=== PATIENT | male | born 1985 | race Two or more races ===

== ENCOUNTER 2016-12-08 10:14 | Emergency (ER) | payer SELFPAY ==
[~2016-12-08] VITALS: Ht 165.1 cm; Wt 120.2 kg
[~2016-12-08 10:14] MED LIST: AMIO200T33 PO; CAR3125T PO; DIG0125T PO; ENA2.5T PO; FURO40TA PO; SIMV10TA84 PO; WARF7.5T PO
[2016-12-08 10:23] VITALS: BP 151/105
[2016-12-08] MEDS ORDERED: HYDROcodone-ACET 10/325MG TAB PO ONE (11:45)
[2016-12-08] MEDS ORDERED: NEOMYCIN-BACITRACIN-POLYM 15GM TOP OINT TOP SCH (12:15)
[2016-12-08] MEDS ORDERED: LIDOCAINE 1% HCL (LOCAL ANESTH.) INJ 20ML MDV IJ ONE (12:15)
== END 2016-12-08 13:45 | disposition home or self-care (01) ==
LOC: ER 10:14
DX: S61.217A Laceration without foreign body of left little finger without damage to nail, initial encounter (principal); E78.5 Hyperlipidemia, unspecified; I11.0 Hypertensive heart disease with heart failure; I50.9 Heart failure, unspecified; X58.XXXA Exposure to other specified factors, initial encounter; Y93.89 Activity, other specified; Y92.89 Other specified places as the place of occurrence of the external cause; Y99.8 Other external cause status
CPT/HCPCS: 12002; 73140; 99284; J2001

== ENCOUNTER 2016-12-10 11:42 | Emergency (ER) | payer SELFPAY ==
[~2016-12-10] VITALS: Ht 165.1 cm; Wt 120.2 kg
[2016-12-10 12:16] VITALS: BP 135/76
== END 2016-12-10 14:47 | disposition home or self-care (01) ==
LOC: ER 11:42
DX: S61.219D Laceration without foreign body of unspecified finger without damage to nail, subsequent encounter (principal); Z48.01 Encounter for change or removal of surgical wound dressing; I11.0 Hypertensive heart disease with heart failure; I50.9 Heart failure, unspecified; E78.5 Hyperlipidemia, unspecified; Z79.899 Other long term (current) drug therapy

== ENCOUNTER 2016-12-17 08:30 | Emergency (ER) | payer SELFPAY ==
[~2016-12-17] VITALS: Ht 165.1 cm; Wt 120.2 kg
[2016-12-17 08:42] VITALS: BP 142/91
== END 2016-12-17 09:23 | disposition home or self-care (01) ==
LOC: ER 08:30
DX: S61.217D Laceration without foreign body of left little finger without damage to nail, subsequent encounter (principal); I11.0 Hypertensive heart disease with heart failure; I15.0 Renovascular hypertension; E78.5 Hyperlipidemia, unspecified; Z48.02 Encounter for removal of sutures; Z79.899 Other long term (current) drug therapy

== ENCOUNTER 2020-02-21 06:06 | Emergency (ER) | payer MEDICAID ==
[~2020-02-21] VITALS: Ht 165.1 cm; Wt 131.5 kg
[~2020-02-21 06:06] MED LIST changes: -ENA2.5T PO; +ENAL2.5T2 PO; +FURO1TAB31 PO; -FURO40TA PO
[2020-02-21 06:13] VITALS: BP 153/99
[2020-02-21] MEDS ORDERED: KETOROLAC TROMETH 60MG/2ML VIAL IM ONE (07:30)
== END 2020-02-21 07:55 | disposition home or self-care (01) ==
LOC: ER 06:06
DX: M79.642 Pain in left hand (principal); M79.641 Pain in right hand; M19.90 Unspecified osteoarthritis, unspecified site; E78.5 Hyperlipidemia, unspecified; I10 Essential (primary) hypertension
CPT/HCPCS: 96372; 99283; J1885

== ENCOUNTER 2021-02-18 08:27 | Emergency (ER) | payer SELFPAY ==
[~2021-02-18] VITALS: Ht 165.1 cm; Wt 88.5 kg
[~2021-02-18 08:27] MED LIST changes: +ENAL2.5T11 PO; -ENAL2.5T2 PO; -WARF7.5T PO; +WARF7.5T2 PO
[2021-02-18 08:59] LABS: Basophils # (auto) 0 10 ^3/uL (0-0.2); Basophils % (auto) 0.7 % (0.0-2.0); Eosinophils # (auto) 0.1 10 ^3/uL (0-0.8); Lymphocytes # (auto) 1.3 10 ^3/uL (0.4-5.4); Mean Corpuscular Volume 91.5 fL (80.0-100.0); Neutrophils # (auto) 4.4 10 ^3/uL (1.6-8.6); Platelet Count (auto) 183 10^3/uL (140-450); White Blood Cell 6.3 10^3/uL (4.4-10.8)
[2021-02-18 09:00] LABS: Eosinophils % (auto) 1.6 % (0.0-7.0); Hemoglobin 19.6 g/dL (13.5-17.5); Lymphocytes % (auto) 20.9 % (10.0-50.0); Mean Corpuscular Hgb Conc. 33.9 g/dL (32.0-36.0); Monocytes # (auto) 0.4 10 ^3/uL (0-1.3); Monocytes % (auto) 6.4 % (0.0-12.0); Neutrophils % (auto) 70.4 % (37.0-80.0); Nucleated Red Blood Cells % 0.2 %; Red Blood Cells 6.32 10^6/uL (4.5-5.90); Red Cell Distribution Width 14.9 % (11.8-14.3)
[2021-02-18 09:04] LABS: Hematocrit 57.8 % (41.0-53.0)
[2021-02-18] MEDS ORDERED: FUROSEMIDE 40 MG/4 ML VIAL IV ONE (09:15)
[2021-02-18 09:16] VITALS: BP 143/78
[2021-02-18 09:19] LABS: Urine Bacteria NONE SEEN /hpf (None Seen); Urine Blood Negative /uL (Negative); Urine Specific Gravity 1.018 (1.001-1.035); Urine WBC <1 /hpf (0 - 3)
[2021-02-18 09:31] LABS: Albumin 3.3 g/dL (3.4-5.0); Anion Gap 4 (5-15); Blood Urea Nitrogen 12 mg/dL (7-18); Calcium 8.4 mg/dL (8.5-10.1); Carbon Dioxide 27 mmol/L (21-32); Chloride 106 mmol/L (98-107); Glucose 123 mg/dL (74-106); Sodium 137 mmol/L (136-145)
[2021-02-18 09:37] LABS: Alanine Aminotransferase 34 U/L (16-61); Alkaline Phosphatase 130 U/L (45-117); Aspartate Aminotransferase 18 U/L (15-37); Bilirubin, Total 0.4 mg/dL (0.2-1.0); GFR African American 197 mL/min; GFR Non-African American 163 mL/min; Total Protein 7.2 g/dL (6.4-8.2)
[2021-02-18] MEDS ORDERED: IOHEXOL 350 MG/ML 100ML IJ ONE (09:57)
== END 2021-02-18 11:29 | disposition home or self-care (01) ==
LOC: ER 08:27
DX: I11.0 Hypertensive heart disease with heart failure (principal); I50.33 Acute on chronic diastolic (congestive) heart failure; E78.5 Hyperlipidemia, unspecified; Z95.0 Presence of cardiac pacemaker
CPT/HCPCS: 36415; 71046; 71275; 80053; 81001; 83880; 84484; 85025; 85379; 96374; 99285; J1940; Q9967

== ENCOUNTER 2021-02-24 12:59 | Inpatient (IN) | payer MEDICAID ==
[~2021-02-24] VITALS: Ht 165.1 cm; Wt 94.8 kg
[2021-02-24 13:53] LABS: Basophils # (auto) 0 10 ^3/uL (0-0.2); Basophils % (auto) 0.3 % (0.0-2.0); Eosinophils % (auto) 0.6 % (0.0-7.0); Monocytes # (auto) 0.6 10 ^3/uL (0-1.3); Monocytes % (auto) 7.3 % (0.0-12.0); Neutrophils # (auto) 6.7 10 ^3/uL (1.6-8.6)
[2021-02-24 13:55] LABS: Eosinophils # (auto) 0.1 10 ^3/uL (0-0.8); Hematocrit 57.6 % (41.0-53.0); Hemoglobin 19.5 g/dL (13.5-17.5); Lymphocytes # (auto) 1.2 10 ^3/uL (0.4-5.4); Lymphocytes % (auto) 13.4 % (10.0-50.0); Mean Corpuscular Hemoglobin 30.8 pg (28.0-32.0); Mean Corpuscular Hgb Conc. 33.8 g/dL (32.0-36.0); Neutrophils % (auto) 78.4 % (37.0-80.0); Nucleated Red Blood Cells % 0.1 %; Platelet Count (auto) 156 10^3/uL (140-450); Red Blood Cells 6.33 10^6/uL (4.5-5.90); Red Cell Distribution Width 15.2 % (11.8-14.3); White Blood Cell 8.6 10^3/uL (4.4-10.8)
[2021-02-24 14:11] LABS: Alanine Aminotransferase 34 U/L (16-61); Albumin 3.5 g/dL (3.4-5.0); Anion Gap 3 (5-15); Aspartate Aminotransferase 23 U/L (15-37); Blood Urea Nitrogen 12 mg/dL (7-18); Calcium 8.2 mg/dL (8.5-10.1); Carbon Dioxide 30 mmol/L (21-32); Chloride 104 mmol/L (98-107); Glucose 93 mg/dL (74-106); Potassium 4.1 mmol/L (3.5-5.1); Sodium 137 mmol/L (136-145)
[2021-02-24 14:16] LABS: Alkaline Phosphatase 130 U/L (45-117); BUN/Creatinine Ratio 14.3; Bilirubin, Total 1.1 mg/dL (0.2-1.0); GFR African American 134 mL/min; GFR Non-African American 111 mL/min; Total Protein 7.6 g/dL (6.4-8.2)
[2021-02-24] MEDS ORDERED: IOHEXOL 350 MG/ML 100ML IJ ONE (15:31)
[2021-02-24] MEDS ORDERED: MORPHINE SULF INJ 2 MG/ML SYRINGE 1ML IV PRN (15:45)
[2021-02-24] MEDS ORDERED: NITROGLYCERIN 0.4 MG SL TAB SL PRN (15:45)
[2021-02-24 16:36] VITALS: BP 158/99
[2021-02-24] MEDS ORDERED: hydrALAZINE HCL 20 MG/ML VL IV PRN (20:00)
[2021-02-24] MEDS ORDERED: hydrALAZINE HCL 20 MG/ML VL IV ONE (20:00)
[2021-02-24 22:48] VITALS: BP 144/86
[2021-02-25 02:06] VITALS: BP 144/80
[2021-02-25] MEDS ORDERED: MORPHINE SULF INJ 2 MG/ML SYRINGE 1ML IV PRN ×2 (04:00)
[2021-02-25] MEDS ORDERED: ENOXAPARIN SOD 100 MG/1 ML SYRINGE SC ONE (04:00)
[2021-02-25] MEDS ORDERED: DOXYCYCLINE 100MG/250ML 250 ML IV ONE (04:00)
[2021-02-25] MEDS ORDERED: ATORVASTATIN 20 MG TAB PO ONE (04:00)
[2021-02-25] MEDS ORDERED: HYDROcodone-ACET 5/325MG TAB PO PRN (04:00)
[2021-02-25] MEDS ORDERED: CALCIUM GLUC 1,000mg/50ml-NS 50 ML IV ONE (04:00)
[2021-02-25] MEDS ORDERED: FUROSEMIDE 100 MG/10ML VIAL IV ONE (04:00)
[2021-02-25] MEDS ORDERED: ACETAMINOPHEN 325 MG TAB PO PRN (04:00)
[2021-02-25] MEDS ORDERED: METOPROLOL SUCCINATE XL 50 MG TAB PO ONE (04:00)
[2021-02-25] MEDS ORDERED: LORazepam 0.5 MG TAB PO PRN (04:00)
[2021-02-25] MEDS ORDERED: NITROGLYCERIN 0.4 MG SL TAB SL PRN (04:00)
[2021-02-25] MEDS ORDERED: ONDANSETRON HCL 4 MG/2 ML VIAL IV PRN (04:00)
[2021-02-25] MEDS ORDERED: DOCUSATE SOD 100 MG CAP PO PRN (04:00)
[2021-02-25] MEDS ORDERED: ALUM & MAG HYDROX-SIMETH LIQ(MAALOX) 30 ML PO PRN (04:00)
[2021-02-25] MEDS ORDERED: IPRATROPIUM BROM 0.5 MG/2.5ML INH SOL NEB PRN (04:30)
[2021-02-25 05:00] VITALS: BP 124/84
[2021-02-25] MEDS ORDERED: FUROSEMIDE 40 MG/4 ML VIAL IV SCH (06:00)
[2021-02-25 06:27] LABS: Basophils # (auto) 0 10 ^3/uL (0-0.2); Basophils % (auto) 0.4 % (0.0-2.0); Eosinophils # (auto) 0.1 10 ^3/uL (0-0.8); Eosinophils % (auto) 1.4 % (0.0-7.0); Hemoglobin 19.5 g/dL (13.5-17.5); Lymphocytes # (auto) 1.3 10 ^3/uL (0.4-5.4); Lymphocytes % (auto) 20.6 % (10.0-50.0); Mean Corpuscular Hemoglobin 31.3 pg (28.0-32.0); Mean Corpuscular Volume 92.1 fL (80.0-100.0); Monocytes # (auto) 0.5 10 ^3/uL (0-1.3); Monocytes % (auto) 7.5 % (0.0-12.0); Neutrophils # (auto) 4.5 10 ^3/uL (1.6-8.6); Neutrophils % (auto) 70.1 % (37.0-80.0); Nucleated Red Blood Cells % 0.9 %; Platelet Count (auto) 160 10^3/uL (140-450); Red Blood Cells 6.22 10^6/uL (4.5-5.90); Red Cell Distribution Width 15.2 % (11.8-14.3); White Blood Cell 6.3 10^3/uL (4.4-10.8)
[2021-02-25 06:28] LABS: Hematocrit 57.2 % (41.0-53.0)
[2021-02-25 06:46] LABS: Chloride 107 mmol/L (98-107); Potassium 3.9 mmol/L (3.5-5.1); Sodium 139 mmol/L (136-145)
[2021-02-25 06:47] LABS: INR 1.07 (0.9-1.15); Partial Thromboplastin Time 32.4 sec (23.0-31.2)
[2021-02-25 06:55] LABS: Alanine Aminotransferase 30 U/L (16-61); Albumin 3.3 g/dL (3.4-5.0); Alkaline Phosphatase 122 U/L (45-117); Anion Gap 5 (5-15); Aspartate Aminotransferase 18 U/L (15-37); BUN/Creatinine Ratio 20.3; Bilirubin, Total 0.8 mg/dL (0.2-1.0); Blood Urea Nitrogen 13 mg/dL (7-18); Carbon Dioxide 27 mmol/L (21-32); GFR African American 183 mL/min; GFR Non-African American 151 mL/min; Glucose 115 mg/dL (74-106); Magnesium 2.7 mg/dL (1.6-2.6); Phosphorus 2.2 mg/dL (2.5-4.90); Total Protein 7.1 g/dL (6.4-8.2)
[2021-02-25] MEDS: ASPirin 81 mg TAB PO SCH (08:53)
[2021-02-25] MEDS: FAMOTIDINE 20 MG TAB PO SCH ×2 (08:54→21:51)
[2021-02-25] MEDS: CALCIUM W/VIT D (600MG/400IU) TAB PO SCH ×2 (08:54→17:51)
[2021-02-25] MEDS: LISINOPRIL 10 MG TAB PO SCH (08:55)
[2021-02-25 09:00] VITALS: BP 145/79
[2021-02-25 09:13] LABS: Cholesterol 187 mg/dL (< 200)
[2021-02-25 09:16] LABS: HDL Cholesterol 39 mg/dL (40-59); LDL Cholesterol 121 mg/dL (< 100); Triglycerides 183 mg/dL (< 150)
[2021-02-25] MEDS ORDERED: ENOXAPARIN SOD 100 MG/1 ML SYRINGE SC SCH ×2 (10:00→16:00)
[2021-02-25] MEDS ORDERED: DIGOXIN 0.125 MG TAB PO SCH (10:00)
[2021-02-25] MEDS ORDERED: AMIODARONE HCL 200 MG TAB PO SCH (10:00)
[2021-02-25] MEDS ORDERED: METOPROLOL SUCCINATE XL 50 MG TAB PO SCH (10:00)
[2021-02-25 13:00] VITALS: BP 158/98
[2021-02-25 15:40] LABS: Urine Bacteria NONE SEEN /hpf (None Seen); Urine Blood Negative /uL (Negative); Urine Hyaline Cast FEW /lpf (0 - 2); Urine Specific Gravity 1.021 (1.001-1.035); Urine WBC 1 /hpf (0 - 3)
[2021-02-25 15:52] LABS: Amphetamine Screen, Urine NEGATIVE (NEGATIVE); Barbiturate Scree,Urine NEGATIVE (NEGATIVE); Benzodiazephine Screen, Urine NEGATIVE (NEGATIVE); Cannabinoid Screen, Urine NEGATIVE (NEGATIVE); Cocaine Screen, Urine NEGATIVE (NEGATIVE); Opiate Scree,Urine NEGATIVE (NEGATIVE); Phencyclidine Screen, Urine NEGATIVE (NEGATIVE)
[2021-02-25] MEDS ORDERED: DOXYCYCLINE 100MG/250ML 250 ML IV SCH (16:00)
[2021-02-25 17:00] VITALS: BP 128/82
[2021-02-25] MEDS: AMIODARONE HCL 200 MG TAB PO SCH (21:50)
[2021-02-25] MEDS: CARVEDILOL 3.125 MG TAB PO SCH (21:51)
[2021-02-25 22:00] VITALS: BP 136/68
[2021-02-25] MEDS ORDERED: ATORVASTATIN 20 MG TAB PO SCH ×2 (22:00)
[2021-02-26 05:00] VITALS: BP 137/73
[2021-02-26 06:21] LABS: Magnesium 2.4 mg/dL (1.6-2.6); Potassium 4.1 mmol/L (3.5-5.1)
[2021-02-26 06:24] LABS: Phosphorus 2.8 mg/dL (2.5-4.90)
[2021-02-26 06:25] LABS: Basophils # (auto) 0 10 ^3/uL (0-0.2); Basophils % (auto) 0.7 % (0.0-2.0); Eosinophils # (auto) 0.1 10 ^3/uL (0-0.8); Lymphocytes # (auto) 1.5 10 ^3/uL (0.4-5.4)
[2021-02-26 06:28] LABS: Eosinophils % (auto) 1.5 % (0.0-7.0); Hemoglobin 19.6 g/dL (13.5-17.5); Lymphocytes % (auto) 24.7 % (10.0-50.0); Mean Corpuscular Hgb Conc. 33.4 g/dL (32.0-36.0); Monocytes # (auto) 0.5 10 ^3/uL (0-1.3); Monocytes % (auto) 7.7 % (0.0-12.0); Neutrophils # (auto) 4.1 10 ^3/uL (1.6-8.6); Neutrophils % (auto) 65.4 % (37.0-80.0); Platelet Count (auto) 162 10^3/uL (140-450); Red Blood Cells 6.32 10^6/uL (4.5-5.90); Red Cell Distribution Width 15.6 % (11.8-14.3); White Blood Cell 6.2 10^3/uL (4.4-10.8)
[2021-02-26 06:30] LABS: Hematocrit 58.8 % (41.0-53.0)
[2021-02-26] MEDS: CALCIUM W/VIT D (600MG/400IU) TAB PO SCH (08:17)
[2021-02-26 09:00] VITALS: BP 144/96
[2021-02-26] MEDS: ASPirin 81 mg TAB PO SCH (09:18)
[2021-02-26] MEDS: FAMOTIDINE 20 MG TAB PO SCH (09:18)
[2021-02-26] MEDS: AMIODARONE HCL 200 MG TAB PO SCH (09:20)
[2021-02-26] MEDS: CARVEDILOL 3.125 MG TAB PO SCH (09:20)
[2021-02-26] MEDS: LISINOPRIL 10 MG TAB PO SCH (09:21)
[2021-02-26] MEDS ORDERED: ENOXAPARIN SOD 40 MG/0.4 ML SYRINGE SC SCH (10:00)
[2021-02-26] MEDS ORDERED: FUROSEMIDE 20 MG TAB PO SCH (10:00)
[2021-02-26] MEDS ORDERED: CARV6.25 PO (10:49)
[2021-02-26] MEDS ORDERED: ATO40T PO (10:49)
[2021-02-26] MEDS ORDERED: CHOL500023 PO (10:49)
[2021-02-26] MEDS ORDERED: FURO1TAB31 PO (10:49)
[2021-02-26] MEDS ORDERED: ASPI1CHW15 PO (10:49)
[2021-02-26] MEDS ORDERED: ENAL5TAB85 PO (10:49)
[2021-02-26 13:00] VITALS: BP 131/67
[2021-02-26 13:24] VITALS: BP 131/67
== END 2021-02-26 14:50 | disposition home or self-care (01) | DRG 291 ==
LOC: ER 12:59 → TELE 15:33 → TELE-WESTW 20:45
PROVIDERS: ADMIT Hospitalist; ATTEND Internal Medicine
DX: I11.0 Hypertensive heart disease with heart failure (principal); J96.21 Acute and chronic respiratory failure with hypoxia; I48.92 Unspecified atrial flutter; I50.43 Acute on chronic combined systolic (congestive) and diastolic (congestive) heart failure; I42.7 Cardiomyopathy due to drug and external agent; I16.0 Hypertensive urgency; I48.0 Paroxysmal atrial fibrillation; E66.01 Morbid (severe) obesity due to excess calories; D75.1 Secondary polycythemia; E78.5 Hyperlipidemia, unspecified; E11.9 Type 2 diabetes mellitus without complications; G47.33 Obstructive sleep apnea (adult) (pediatric); Z20.822 Contact with and (suspected) exposure to COVID-19; R07.89 Other chest pain; R00.0 Tachycardia, unspecified; Q76.1 Klippel-Feil syndrome; Z82.49 Family history of ischemic heart disease and other diseases of the circulatory system; Z68.34 Body mass index [BMI] 34.0-34.9, adult; Z83.3 Family history of diabetes mellitus; Z86.16 Personal history of COVID-19; Z87.01 Personal history of pneumonia (recurrent); Z87.891 Personal history of nicotine dependence; Z91.14 Patient's other noncompliance with medication regimen
CPT/HCPCS: 36415; 36600; 71045; 71046; 71275; 80053; 80061; 80162; 80307; 81001; 82306; 82728; 82805; 82962; 83036; 83735; 83880; 84100; 84132; 84443; 84484; 85025; 85379; 85610; 85730; 87040; 87086; 87426; 93005; 93306; 96374; G0378; J3490

== ENCOUNTER 2022-12-06 17:11 | Emergency (ER) | payer BC, MEDICAID ==
[~2022-12-06] VITALS: Ht 165.1 cm; Wt 117.5 kg
[~2022-12-06 17:11] MED LIST changes: +ACE3T PO; +ASPI1CHW15 PO; +ATO40T PO; +BACL10TA PO; +CARV6.25 PO; +CHOL500023 PO; +CYCL-837 PO; +ENAL5TAB85 PO; +IBUP800T27 PO; -SIMV10TA84 PO
[2022-12-06] MEDS ORDERED: KETOROLAC TROMETH 60MG/2ML VIAL IM ONE (17:30)
[2022-12-06] MEDS ORDERED: IBUP800T26 PO (20:59)
[2022-12-06] MEDS ORDERED: HYDR-4902 PO (21:01)
[2022-12-06 22:42] VITALS: BP 147/89
[2023-01-15] MEDS ORDERED: METH750T22 PO (10:42)
[2023-01-15] MEDS ORDERED: IBUP800T27 PO (10:42)
== END 2022-12-06 22:43 | disposition home or self-care (01) ==
LOC: MERGE 17:11 → ER 17:11
DX: M79.671 Pain in right foot (principal); Z79.899 Other long term (current) drug therapy; I10 Essential (primary) hypertension
CPT/HCPCS: 73630; 96372; 99283; J1885

== ENCOUNTER 2023-03-20 13:51 | Emergency (ER) | payer BC ==
[~2023-03-20] VITALS: Ht 165.1 cm; Wt 119.0 kg
[~2023-03-20 13:51] MED LIST changes: +ASPI-736 PO; -ASPI1CHW15 PO; +HYDR-4902 PO; +IBUP-1455 PO; +IBUP-1456 PO; -IBUP800T27 PO; +METH-1182 PO
[2023-03-20 15:08] LABS: Basophils # (auto) 0 10 ^3/uL (0-0.2); Basophils % (auto) 0.6 % (0.0-2.0); Eosinophils # (auto) 0.1 10 ^3/uL (0-0.8); Monocytes # (auto) 0.5 10 ^3/uL (0-1.3); Neutrophils # (auto) 4.1 10 ^3/uL (1.6-8.6)
[2023-03-20 15:10] LABS: Eosinophils % (auto) 0.9 % (0.0-7.0); Lymphocytes # (auto) 1.3 10 ^3/uL (0.4-5.4); Lymphocytes % (auto) 21.3 % (10.0-50.0); Mean Corpuscular Hemoglobin 31.2 pg (28.0-32.0); Mean Corpuscular Hgb Conc. 33.4 g/dL (32.0-36.0); Mean Corpuscular Volume 93.5 fL (80.0-100.0); Monocytes % (auto) 8.1 % (0.0-12.0); Neutrophils % (auto) 69.1 % (37.0-80.0); Nucleated Red Blood Cells % 2.4 %; Red Cell Distribution Width 15.9 % (11.8-14.3)
[2023-03-20 15:24] LABS: Anion Gap 7 (5-15); Carbon Dioxide 26 mmol/L (21-32); Chloride 104 mmol/L (98-107); Potassium 3.5 mmol/L (3.5-5.1); Sodium 137 mmol/L (136-145)
[2023-03-20 15:25] LABS: Alanine Aminotransferase 31 U/L (16-61); Albumin 3.1 g/dL (3.4-5.0); Alkaline Phosphatase 111 U/L (45-117); Aspartate Aminotransferase 27 U/L (15-37); BUN/Creatinine Ratio 12.9 (10.0-20.0); Bilirubin, Total 1.4 mg/dL (0.2-1.0); Blood Urea Nitrogen 13 mg/dL (7-18); Calcium 8.7 mg/dL (8.5-10.1); GFR African American 106 mL/min; GFR Non-African American 88 mL/min; Glucose 165 mg/dL (74-106)
[2023-03-20] MEDS ORDERED: ASPirin 81 mg TAB PO ONE (15:30)
[2023-03-20] MEDS ORDERED: LACTATED RINGER S IV ONE (15:30)
[2023-03-20 15:43] LABS: Hematocrit 65.5 % (41.0-53.0)
[2023-03-20 15:44] LABS: Hemoglobin 21.9 g/dL (13.5-17.5)
[2023-03-20 16:32] LABS: INR 1.47 (0.9-1.15); Partial Thromboplastin Time 31.9 sec (24.6-33.4)
[2023-03-20 16:40] VITALS: BP 171/92
== END 2023-03-20 16:45 | disposition home or self-care (01) ==
LOC: ER 13:51
DX: D75.1 Secondary polycythemia (principal); I11.0 Hypertensive heart disease with heart failure; I50.9 Heart failure, unspecified; E78.5 Hyperlipidemia, unspecified; E11.9 Type 2 diabetes mellitus without complications; G47.30 Sleep apnea, unspecified; Z87.891 Personal history of nicotine dependence
CPT/HCPCS: 36415; 71045; 80053; 83880; 84484; 85025; 85610; 85730; 86850; 86900; 86901; 93005; 96360

== ENCOUNTER 2023-04-22 14:30 | Inpatient (IN) | payer BC ==
[~2023-04-22] VITALS: Ht 165.1 cm; Wt 116.3 kg
[2023-04-22 15:21] LABS: Basophils # (auto) 0 10 ^3/uL (0-0.2); Mean Corpuscular Volume 91.6 fL (80.0-100.0)
[2023-04-22 15:22] LABS: Basophils % (auto) 0.3 % (0.0-2.0); Eosinophils # (auto) 0.1 10 ^3/uL (0-0.8); Eosinophils % (auto) 0.6 % (0.0-7.0); Lymphocytes # (auto) 1.5 10 ^3/uL (0.4-5.4); Mean Corpuscular Hemoglobin 30.2 pg (28.0-32.0); Monocytes # (auto) 0.7 10 ^3/uL (0-1.3); Monocytes % (auto) 8.1 % (0.0-12.0); Neutrophils # (auto) 6.5 10 ^3/uL (1.6-8.6); Red Blood Cells 7.76 10^6/uL (4.5-5.90); Red Cell Distribution Width 16.1 % (11.8-14.3); White Blood Cell 8.8 10^3/uL (4.4-10.8)
[2023-04-22 15:30] LABS: Hematocrit 71.1 % (41.0-53.0); Nucleated Red Blood Cells % 4.9 %
[2023-04-22 15:33] LABS: Hemoglobin 23.4 g/dL (13.5-17.5)
[2023-04-22 16:11] LABS: Alkaline Phosphatase 128 U/L (45-117); Anion Gap 11 (5-15); Aspartate Aminotransferase 41 U/L (15-37); BUN/Creatinine Ratio 10.3 (10.0-20.0); Blood Urea Nitrogen 22 mg/dL (7-18); Carbon Dioxide 22 mmol/L (21-32); Chloride 104 mmol/L (98-107); GFR African American 45 mL/min; GFR Non-African American 37 mL/min; Glucose 115 mg/dL (74-106); Potassium 3.4 mmol/L (3.5-5.1); Sodium 137 mmol/L (136-145)
[2023-04-22 16:12] LABS: Alanine Aminotransferase 52 U/L (16-61); Albumin 3.8 g/dL (3.4-5.0); Bilirubin, Total 1.7 mg/dL (0.2-1.0); Calcium 9.3 mg/dL (8.5-10.1); Total Protein 8.1 g/dL (6.4-8.2)
[2023-04-22 19:48] LABS: Eosinophils # (auto) 0 10 ^3/uL (0-0.8); Monocytes # (auto) 0.7 10 ^3/uL (0-1.3)
[2023-04-22 19:50] LABS: Basophils # (auto) 0 10 ^3/uL (0-0.2); Basophils % (auto) 0.5 % (0.0-2.0); Eosinophils % (auto) 0.5 % (0.0-7.0); Mean Corpuscular Hemoglobin 30.3 pg (28.0-32.0); Mean Corpuscular Volume 91.8 fL (80.0-100.0); Monocytes % (auto) 7.4 % (0.0-12.0); Neutrophils # (auto) 6.1 10 ^3/uL (1.6-8.6); Neutrophils % (auto) 68.6 % (37.0-80.0); Nucleated Red Blood Cells % 1.6 %; Red Blood Cells 7.42 10^6/uL (4.5-5.90); Red Cell Distribution Width 16.1 % (11.8-14.3); White Blood Cell 8.9 10^3/uL (4.4-10.8)
[2023-04-22 19:59] LABS: Hemoglobin 22.5 g/dL (13.5-17.5)
[2023-04-22] MEDS ORDERED: HYDROcodone-ACET 10/325MG TAB PO ONE (20:00)
[2023-04-22] MEDS ORDERED: SODIUM CHLORIDE 0.9% 1,000 ML IV ONE (21:15)
[2023-04-22] MEDS ORDERED: NITROGLYCERIN 0.4 MG SL TAB SL PRN (21:45)
[2023-04-22] MEDS ORDERED: HYDROcodone-ACET 5/325MG TAB PO PRN (21:45)
[2023-04-22] MEDS ORDERED: POTASSIUM CHL 20 Meq TABLET PO ONE (21:45)
[2023-04-22] MEDS ORDERED: MORPHINE SULFATE INJ 2 MG/ml SYRG IV PRN (21:45)
[2023-04-22] MEDS ORDERED: ACETAMINOPHEN 325 MG TAB PO PRN (21:45)
[2023-04-22] MEDS ORDERED: ONDANSETRON HCL 4 MG/2 ML VIAL IV PRN (21:45)
[2023-04-22] MEDS ORDERED: DOCUSATE SOD 100 MG CAP PO PRN (21:45)
[2023-04-22] MEDS ORDERED: DEXTROSE (50%) 50ML SYRG IV PRN (21:45)
[2023-04-22] MEDS ORDERED: InsuLIN REG 1unit/0.01ml Soln (100units/ml) SC SCH (22:00)
[2023-04-22] MEDS ORDERED: ACCU-CHEK COMFORT CURVE STRIP VI SCH (22:00)
[2023-04-22] MEDS: SODIUM CHLOR 0.9% PF (SALINE LOCK) 10ML VIAL/SYR IV SCH (22:36)
[2023-04-22] MEDS ORDERED: HYDROmorphone HCL 2 MG/ML VL/or syr IV ONE ×2 (23:00)
[2023-04-22] MEDS ORDERED: ONDANSETRON HCL 4 MG/2 ML VIAL IV ONE (23:00)
[2023-04-23 05:42] LABS: Basophils # (auto) 0 10 ^3/uL (0-0.2); Eosinophils # (auto) 0.1 10 ^3/uL (0-0.8); Lymphocytes # (auto) 1.6 10 ^3/uL (0.4-5.4); Monocytes # (auto) 0.6 10 ^3/uL (0-1.3); Neutrophils # (auto) 3.8 10 ^3/uL (1.6-8.6); White Blood Cell 6.1 10^3/uL (4.4-10.8)
[2023-04-23 05:45] LABS: Basophils % (auto) 0.6 % (0.0-2.0); Eosinophils % (auto) 1.6 % (0.0-7.0); Lymphocytes % (auto) 26.4 % (10.0-50.0); Mean Corpuscular Hemoglobin 30.2 pg (28.0-32.0); Mean Corpuscular Hgb Conc. 32.4 g/dL (32.0-36.0); Mean Corpuscular Volume 93.3 fL (80.0-100.0); Monocytes % (auto) 9.7 % (0.0-12.0); Neutrophils % (auto) 61.7 % (37.0-80.0); Red Blood Cells 6.97 10^6/uL (4.5-5.90); Red Cell Distribution Width 16.2 % (11.8-14.3)
[2023-04-23 05:54] LABS: Hematocrit 65.1 % (41.0-53.0)
[2023-04-23 05:55] LABS: Hemoglobin 21.1 g/dL (13.5-17.5)
[2023-04-23 06:03] LABS: Albumin 2.9 g/dL (3.4-5.0); BUN/Creatinine Ratio 16.6 (10.0-20.0); Bilirubin, Total 1.2 mg/dL (0.2-1.0); Calcium 8.3 mg/dL (8.5-10.1); Total Protein 6.8 g/dL (6.4-8.2)
[2023-04-23] MEDS: SODIUM CHLOR 0.9% PF (SALINE LOCK) 10ML VIAL/SYR IV SCH ×2 (06:03→14:00)
[2023-04-23] MEDS ORDERED: InsuLIN REG 1unit/0.01ml Soln (100units/ml) SC SCH (07:00)
[2023-04-23] MEDS ORDERED: LACTATED RINGER'S 1,000 ML IV SCH (08:30)
[2023-04-23 13:00] VITALS: BP 111/79
[2023-04-23 15:19] LABS: Urine Bacteria NONE SEEN /hpf (None Seen); Urine Blood Negative /uL (Negative); Urine Hyaline Cast MANY /lpf (0 - 2); Urine Mucus FEW (None Seen); Urine Specific Gravity 1.023 (1.001-1.035); Urine WBC 17 /hpf (0 - 3)
[2023-04-23 16:41] LABS: Alcohol, Urine < 3.0 mg/dL (0-10); Amphetamine Screen, Urine POSITIVE (NEGATIVE); Barbiturate Scree,Urine NEGATIVE (NEGATIVE); Opiate Scree,Urine POSITIVE (NEGATIVE); Phencyclidine Screen, Urine NEGATIVE (NEGATIVE)
[2023-04-23 16:42] LABS: Benzodiazephine Screen, Urine NEGATIVE (NEGATIVE); Cannabinoid Screen, Urine NEGATIVE (NEGATIVE); Cocaine Screen, Urine NEGATIVE (NEGATIVE)
[2023-04-23 17:04] VITALS: BP 134/64
[2023-04-26 12:27] LABS: Hepatitis C Antibody Negative (Negative)
== END 2023-04-23 15:40 | disposition home or self-care (01) | DRG 445 ==
LOC: ER 14:30 → TELE 21:50 → TELE-WESTW 04-23 09:30
PROVIDERS: ADMIT Nurse Practitioner Family; ATTEND Internal Medicine
DX: K80.20 Calculus of gallbladder without cholecystitis without obstruction (principal); N17.9 Acute kidney failure, unspecified; Z68.41 Body mass index [BMI] 40.0-44.9, adult; E87.6 Hypokalemia; D45 Polycythemia vera; E11.9 Type 2 diabetes mellitus without complications; E66.01 Morbid (severe) obesity due to excess calories; E78.5 Hyperlipidemia, unspecified; E86.9 Volume depletion, unspecified; I11.0 Hypertensive heart disease with heart failure; I50.9 Heart failure, unspecified; K76.0 Fatty (change of) liver, not elsewhere classified; F17.200 Nicotine dependence, unspecified, uncomplicated; G47.30 Sleep apnea, unspecified; Z80.9 Family history of malignant neoplasm, unspecified; Z82.49 Family history of ischemic heart disease and other diseases of the circulatory system; Z83.3 Family history of diabetes mellitus; Z91.148 Patient's other noncompliance with medication regimen for other reason; Z91.199 Patient's noncompliance with other medical treatment and regimen due to unspecified reason
CPT/HCPCS: 36415; 74176; 76705; 78226; 80053; 80307; 81001; 82668; 82962; 83036; 83615; 83690; 83880; 85025; 86803; 87340; 93306; 96361; 96374; G0378; J2405

== ENCOUNTER 2023-07-12 11:00 | Inpatient (IN) | payer BC ==
[~2023-07-12] VITALS: Ht 165.1 cm; Wt 123.0 kg
[~2023-07-12 11:00] MED LIST changes: -IBUP-1456 PO
[2023-07-12 11:15] VITALS: PULSE 162; O2SAT 97
[2023-07-12] MEDS ORDERED: ADENOSINE 6 MG/2 ML INJ IV ONE (11:15)
[2023-07-12] MEDS ORDERED: SODIUM CHLORIDE 0.9% 1,000 ML IV ONE (11:30)
[2023-07-12] MEDS ORDERED: METOPROLOL TARTRATE 1MG/1ML-5ML VIAL IV ONE ×3 (11:30→12:15)
[2023-07-12] MEDS ORDERED: ASPirin-EC 325mg tab PO ONE (11:30)
[2023-07-12 11:54] LABS: Eosinophils # (auto) 0.1 10 ^3/uL (0-0.8); Lymphocytes # (auto) 1.8 10 ^3/uL (0.4-5.4); Monocytes # (auto) 0.5 10 ^3/uL (0-1.3); Red Cell Distribution Width 18.8 % (11.8-14.3)
[2023-07-12 11:56] LABS: Basophils # (auto) 0 10 ^3/uL (0-0.2); Basophils % (auto) 0.4 % (0.0-2.0); Lymphocytes % (auto) 25.6 % (10.0-50.0); Mean Corpuscular Hemoglobin 29.9 pg (28.0-32.0); Mean Corpuscular Hgb Conc. 33.5 g/dL (32.0-36.0); Mean Corpuscular Volume 89.2 fL (80.0-100.0); Monocytes % (auto) 6.4 % (0.0-12.0); Neutrophils # (auto) 4.8 10 ^3/uL (1.6-8.6); Neutrophils % (auto) 66.6 % (37.0-80.0); Nucleated Red Blood Cells % 2.7 %; White Blood Cell 7.2 10^3/uL (4.4-10.8)
[2023-07-12 12:01] LABS: Hematocrit 65.1 % (41.0-53.0)
[2023-07-12 12:03] LABS: Hemoglobin 21.8 g/dL (13.5-17.5)
[2023-07-12] MEDS ORDERED: ONDANSETRON HCL 4 MG/2 ML VIAL IV ONE (12:30)
[2023-07-12] MEDS ORDERED: dilTIAZem 125mg/125ml BAG KIT 125 ML IV ONE (12:30)
[2023-07-12 12:40] LABS: Alanine Aminotransferase 31 U/L (7-40); Albumin 3.6 g/dL (3.2-4.8); Alkaline Phosphatase 104 U/L (46-116); Anion Gap 6 (5-15); Aspartate Aminotransferase 17 U/L (13-40); BUN/Creatinine Ratio 26.5 (10.0-20.0); Bilirubin, Total 1.4 mg/dL (0.2-1.0); Blood Urea Nitrogen 22 mg/dL (9-23); Calcium 8.3 mg/dL (8.7-10.4); Carbon Dioxide 25 mmol/L (20-30); Chloride 106 mmol/L (98-107); Glucose 169 mg/dL (74-106); Magnesium 1.7 mg/dL (1.6-2.6); Potassium 4.7 mmol/L (3.5-5.1); Sodium 137 mmol/L (136-145); Total Protein 5.9 g/dL (5.7-8.2)
[2023-07-12 13:05] LABS: Eosinophils # (auto) 0.1 10 ^3/uL (0-0.8); Monocytes # (auto) 0.5 10 ^3/uL (0-1.3)
[2023-07-12 13:06] LABS: Basophils # (auto) 0.1 10 ^3/uL (0-0.2); Basophils % (auto) 0.7 % (0.0-2.0); Eosinophils % (auto) 1.3 % (0.0-7.0); Hematocrit 66.7 % (41.0-53.0); Lymphocytes % (auto) 25.7 % (10.0-50.0); Mean Corpuscular Hemoglobin 29.5 pg (28.0-32.0); Mean Corpuscular Hgb Conc. 32.6 g/dL (32.0-36.0); Mean Corpuscular Volume 90.5 fL (80.0-100.0); Monocytes % (auto) 6.1 % (0.0-12.0); Neutrophils # (auto) 5.1 10 ^3/uL (1.6-8.6); Neutrophils % (auto) 66.2 % (37.0-80.0); Red Blood Cells 7.36 10^6/uL (4.5-5.90); Red Cell Distribution Width 18.8 % (11.8-14.3); White Blood Cell 7.7 10^3/uL (4.4-10.8)
[2023-07-12 13:08] LABS: Hemoglobin 21.7 g/dL (13.5-17.5)
[2023-07-12 13:23] LABS: Platelet Estimate Adequate
[2023-07-12] MEDS ORDERED: MORPHINE SULFATE INJ 2 MG/ml SYRG IV PRN (13:30)
[2023-07-12] MEDS ORDERED: ACETAMINOPHEN 325 MG TAB PO PRN (13:30)
[2023-07-12] MEDS ORDERED: HYDROcodone-ACET 5/325MG TAB PO PRN (13:30)
[2023-07-12] MEDS ORDERED: ONDANSETRON HCL 4 MG/2 ML VIAL IV PRN (13:30)
[2023-07-12] MEDS ORDERED: NITROGLYCERIN 0.4 MG SL TAB SL PRN (13:30)
[2023-07-12] MEDS ORDERED: AMIODARONE 450mg/250ml AE 250 ML IV ONE (13:31)
[2023-07-12] MEDS ORDERED: AMIODARONE HCL (50 MG/ ML) 3 ML VIAL IV ONE (13:31)
[2023-07-12 13:44] LABS: Free T3 3.53 pg/mL (2.3-4.2); Free T4 (Free Thyroxine) 1.15 ng/dL (0.89-1.76)
[2023-07-12] MEDS ORDERED: AMIODARONE 450mg/250ml AE 250 ML IV SCH (13:45)
[2023-07-12] MEDS ORDERED: DEXTROSE (50%) 50ML SYRG IV PRN (13:45)
[2023-07-12] MEDS ORDERED: AMIODARONE BOLUS KIT 100 ML IV ONE (13:45)
[2023-07-12] MEDS ORDERED: ENOXAPARIN SOD 100 MG/1 ML SYRINGE SC SCH (13:45)
[2023-07-12] MEDS: LORazepam 2MG/ML-1ML VIAL IV ONE ×2 (14:10→14:45)
[2023-07-12] MEDS: ACCU-CHEK COMFORT CURVE STRIP VI SCH ×2 (17:49→22:25)
[2023-07-12] MEDS: InsuLIN REG 1unit/0.01ml Soln (100units/ml) SC SCH ×2 (17:51→22:45)
[2023-07-12] MEDS: AMIODARONE 450mg/250ml AE 250 ML IV SCH (19:45)
[2023-07-12 20:09] LABS: Urine Bacteria NONE SEEN /hpf (None Seen); Urine Blood Negative /uL (Negative); Urine Clarity Clear (Clear); Urine Color Yellow (Yellow); Urine Hyaline Cast FEW /lpf (0 - 2); Urine Mucus FEW (None Seen); Urine Protein, UAD 2+ (Negative); Urine Specific Gravity 1.025 (1.001-1.035); Urine WBC 1 /hpf (0 - 3); Urine pH 5.5 (5.0-8.0)
[2023-07-12 20:20] LABS: Amphetamine Screen, Urine Neg (NEGATIVE); Barbiturate Scree,Urine Neg (NEGATIVE); Benzodiazephine Screen, Urine Neg (NEGATIVE); Cannabinoid Screen, Urine Neg (NEGATIVE); Cocaine Screen, Urine Neg (NEGATIVE); Opiate Scree,Urine Neg (NEGATIVE); Phencyclidine Screen, Urine Neg (NEGATIVE)
[2023-07-12] MEDS ORDERED: LORazepam 0.5 MG TAB PO PRN (21:00)
[2023-07-12 22:02] VITALS: PULSE 150; RESP 18; O2SAT 95
[2023-07-12] MEDS: METOPROLOL TARTRATE 25 MG TAB PO SCH (22:42)
[2023-07-12] MEDS: ENOXAPARIN SOD 120 MG/0.8 ML SYRINGE SC SCH (22:42)
[2023-07-12 22:50] VITALS: RESP 23; O2SAT 98
[2023-07-12 23:00] VITALS: BP 138/99; PULSE 153; RESP 23; TEMP 98.1; O2SAT 93; O2SAT 94
[2023-07-13] VITALS (35 sets, daily range): BP systolic 99–147; BP diastolic 71–105; PULSE 74–149; RESP 11–55; TEMP 97.2–97.9; O2SAT 79–98
[2023-07-13 05:07] LABS: Eosinophils # (auto) 0.1 10 ^3/uL (0-0.8); Monocytes # (auto) 0.5 10 ^3/uL (0-1.3); White Blood Cell 7.6 10^3/uL (4.4-10.8)
[2023-07-13 05:08] LABS: Basophils # (auto) 0 10 ^3/uL (0-0.2); Basophils % (auto) 0.5 % (0.0-2.0); Eosinophils % (auto) 1.4 % (0.0-7.0); Hemoglobin 20.8 g/dL (13.5-17.5); Lymphocytes # (auto) 1.8 10 ^3/uL (0.4-5.4); Lymphocytes % (auto) 23.6 % (10.0-50.0); Mean Corpuscular Hemoglobin 29.2 pg (28.0-32.0); Mean Corpuscular Hgb Conc. 31.7 g/dL (32.0-36.0); Mean Corpuscular Volume 91.8 fL (80.0-100.0); Monocytes % (auto) 7.2 % (0.0-12.0); Neutrophils # (auto) 5.1 10 ^3/uL (1.6-8.6); Neutrophils % (auto) 67.3 % (37.0-80.0); Nucleated Red Blood Cells % 1.2 %; Red Blood Cells 7.13 10^6/uL (4.5-5.90); Red Cell Distribution Width 19.2 % (11.8-14.3)
[2023-07-13 05:14] LABS: Hematocrit 65.4 % (41.0-53.0)
[2023-07-13 05:22] LABS: Alanine Aminotransferase 39 U/L (7-40); Albumin 3.6 g/dL (3.2-4.8); Alkaline Phosphatase 86 U/L (46-116); Anion Gap 7 (5-15); BUN/Creatinine Ratio 14.3 (10.0-20.0); Blood Urea Nitrogen 13 mg/dL (9-23); Calcium 8.5 mg/dL (8.5-10.1); Carbon Dioxide 26 mmol/L (20-30); Chloride 105 mmol/L (98-107); Glucose 183 mg/dL (74-106); Potassium 5.2 mmol/L (3.5-5.1); Sodium 138 mmol/L (136-145)
[2023-07-13 05:23] LABS: Aspartate Aminotransferase 40 U/L (13-40); Bilirubin, Total 1.6 mg/dL (0.2-1.0); Total Protein 6.3 g/dL (5.7-8.2)
[2023-07-13] MEDS: ACCU-CHEK COMFORT CURVE STRIP VI SCH ×4 (06:20→22:04)
[2023-07-13] MEDS: InsuLIN REG 1unit/0.01ml Soln (100units/ml) SC SCH ×4 (06:22→22:00)
[2023-07-13] MEDS ORDERED: FUROSEMIDE 40 MG/4 ML VIAL IV ONE (07:30)
[2023-07-13] MEDS: METOPROLOL TARTRATE 25 MG TAB PO SCH ×2 (09:31→22:00)
[2023-07-13] MEDS: ENOXAPARIN SOD 120 MG/0.8 ML SYRINGE SC SCH ×2 (09:31→22:00)
[2023-07-13] MEDS ORDERED: ENOXAPARIN SOD 40 MG/0.4 ML SYRINGE SC SCH (10:00)
[2023-07-13] MEDS: AMIODARONE 450mg/250ml AE 250 ML IV SCH (13:41)
[2023-07-13] MEDS ORDERED: LIDOCAINE VISCOUS 2% 15ML UD ONE (13:54)
[2023-07-13] MEDS ORDERED: MIDAZOLAM HCL 2MG/2ML 2ml VIAL (1mg/ml) ONE (13:59)
[2023-07-13] MEDS ORDERED: fentaNYL CITRATE 100 MCG/2 ML VL ONE (13:59)
[2023-07-13] MEDS ORDERED: MIDAZOLAM HCL 2MG/2ML 2ml VIAL (1mg/ml) IV ONE (14:15)
[2023-07-13] MEDS ORDERED: LIDOCAINE VISCOUS 2% 15ML UD MT ONE (14:15)
[2023-07-13] MEDS ORDERED: fentaNYL CITRATE 100 MCG/2 ML VL IV ONE (14:15)
[2023-07-14] VITALS (25 sets, daily range): BP systolic 106–140; BP diastolic 52–97; PULSE 73–89; RESP 13–41; TEMP 97.6–98; O2SAT 86–100
[2023-07-14] MEDS: ACCU-CHEK COMFORT CURVE STRIP VI SCH ×2 (06:40→12:18)
[2023-07-14] MEDS: InsuLIN REG 1unit/0.01ml Soln (100units/ml) SC SCH ×2 (06:41→12:09)
[2023-07-14 07:47] LABS: Basophils # (auto) 0 10 ^3/uL (0-0.2); Basophils % (auto) 0.4 % (0.0-2.0); Eosinophils # (auto) 0.1 10 ^3/uL (0-0.8); Eosinophils % (auto) 1.2 % (0.0-7.0); Hemoglobin 19.9 g/dL (13.5-17.5); Lymphocytes # (auto) 1.3 10 ^3/uL (0.4-5.4); Lymphocytes % (auto) 16.9 % (10.0-50.0); Mean Corpuscular Hemoglobin 29.3 pg (28.0-32.0); Mean Corpuscular Hgb Conc. 31.8 g/dL (32.0-36.0); Monocytes # (auto) 0.5 10 ^3/uL (0-1.3); Monocytes % (auto) 7.1 % (0.0-12.0); Neutrophils # (auto) 5.7 10 ^3/uL (1.6-8.6); Neutrophils % (auto) 74.4 % (37.0-80.0); Nucleated Red Blood Cells % 0.7 %; Red Blood Cells 6.79 10^6/uL (4.5-5.90); Red Cell Distribution Width 18.7 % (11.8-14.3); White Blood Cell 7.7 10^3/uL (4.4-10.8)
[2023-07-14 08:11] LABS: Chloride 104 mmol/L (98-107); Potassium 4.9 mmol/L (3.5-5.1); Sodium 139 mmol/L (136-145)
[2023-07-14 08:12] LABS: Anion Gap 4 (5-15); Calcium 8.7 mg/dL (8.5-10.1); Carbon Dioxide 31 mmol/L (20-30)
[2023-07-14 08:14] LABS: Hematocrit 62.5 % (41.0-53.0)
[2023-07-14 08:17] LABS: BUN/Creatinine Ratio 13.4 (10.0-20.0); Blood Urea Nitrogen 11 mg/dL (9-23); Glucose 133 mg/dL (74-106)
[2023-07-14] MEDS: METOPROLOL TARTRATE 25 MG TAB PO SCH (09:40)
[2023-07-14] MEDS: ENOXAPARIN SOD 120 MG/0.8 ML SYRINGE SC SCH (09:41)
[2023-07-14] MEDS ORDERED: ASPI-736 PO (13:04)
[2023-07-14] MEDS ORDERED: MET25T PO (13:04)
[2023-07-14] MEDS ORDERED: APIX5TAB PO (13:04)
[2023-07-14] MEDS ORDERED: AMIO200T33 PO (13:04)
[2023-07-14] MEDS ORDERED: APIXABAN 5 MG TAB PO SCH (22:00)
== END 2023-07-14 18:57 | disposition home or self-care (01) | DRG 309 ==
LOC: EDBD 11:00 → ER 11:00 → EDUNIT# 11:00 → TELE 13:32 → DOU IN ICU 16:27 → OVERFLOW 17:55 → DOU IN ICU 22:30
PROVIDERS: ADMIT Internal Medicine; ATTEND Internal Medicine
PROC: 5A2204Z Restoration of Cardiac Rhythm, Single (ICD-10-PCS; principal; 2023-07-13)
PROC: B24BZZ4 Ultrasonography of Heart with Aorta, Transesophageal (ICD-10-PCS; 2023-07-13)
DX: I48.92 Unspecified atrial flutter (principal); Z68.42 Body mass index [BMI] 45.0-49.9, adult; D75.1 Secondary polycythemia; E11.9 Type 2 diabetes mellitus without complications; E66.01 Morbid (severe) obesity due to excess calories; E78.5 Hyperlipidemia, unspecified; F41.9 Anxiety disorder, unspecified; I11.0 Hypertensive heart disease with heart failure; I48.91 Unspecified atrial fibrillation; I50.9 Heart failure, unspecified; R00.0 Tachycardia, unspecified; G47.33 Obstructive sleep apnea (adult) (pediatric); M19.90 Unspecified osteoarthritis, unspecified site; Z82.49 Family history of ischemic heart disease and other diseases of the circulatory system; Z83.3 Family history of diabetes mellitus; Z86.718 Personal history of other venous thrombosis and embolism; Z87.891 Personal history of nicotine dependence; Z91.199 Patient's noncompliance with other medical treatment and regimen due to unspecified reason
CPT/HCPCS: 36415; 71045; 80048; 80053; 80307; 81001; 82962; 83036; 83605; 83735; 84439; 84443; 84481; 84484; 85025; 85379; 87040; 87081; 93005; 93312; 94660; 96361; 96365; 96366; 96372; 96375; 99291; 99292; G0378; J0153; J1815; J2250; J2405

== ENCOUNTER 2024-10-07 05:42 | Emergency (ER) | payer OTHER ==
[~2024-10-07] VITALS: Ht 165.1 cm; Wt 122.1 kg
[~2024-10-07 05:42] MED LIST changes: +APIX5TAB PO; -ATO40T PO; +ATOR-507 PO; -BACL10TA PO; -CAR3125T PO; -CARV6.25 PO; -DIG0125T PO; -ENAL2.5T11 PO; -IBUP-1455 PO; +MET25T PO; -METH-1182 PO; -WARF7.5T2 PO
[2024-10-07 07:00] VITALS: BP 151/82; PULSE 95; RESP 22; TEMP 97.8; O2SAT 95
--- NOTE | 2024-10-07 07:07 | ED.PDOC ---
Back pain HPI HPI Comments A 39 YEAR OLD MALE PRESENTS TO THE ED WITH COMPLAINT OF RIGHT-SIDED LOWER BACK PAIN. PATIENT STATES HE WAS COUGHING TOO HARD EARLIER THIS MORNING AND FELT A POPPING SENSATION IN HIS RIGHT LOWER BACK AND BEGAN TO EXPERIENCE RIGHT-SIDED LOWER BACK PAIN SHORTLY AFTER. PATIENT NOTES HE HAS A HISTORY OF CHRONIC LOWER BACK PAIN, AND NOTES IT IS WORSE TODAY. PATIENT DENIES SADDLE ANESTHESIA, URINARY INCONTINENCE, BOWEL INCONTINENCE, FEVER, CHILLS, SHORTNESS OF BREATH, CHEST PAIN, ABDOMINAL PAIN, NAUSEA, VOMITING, HEADACHE, OR OTHER COMPLAINTS. NO OTHER SYMPTOMS OR MODIFYING FACTORS AT THIS TIME. PATIENT IS ALERT, ORIENTED X 4, AND HAS STEADY GAIT. Chief Complaint: Back Pain Time Seen by MD: 06:28 Primary Care Provider: PRECIADO Reviewed Notes: Nurses Notes, Medications, Allergies Allergies: Coded Allergies: NO KNOWN ALLERGIES (Unverified , 02/24/21) Home Meds Active Scripts Metoprolol Tartrate (Lopressor) 25 Mg Tb, 25 MG PO BID, #60 TAB Prov:YUE MANRIQUE MD 07/14/23 Apixaban Base (ELIQUIS) 5 Mg Tab, 5 MG PO BID, #60 TAB Prov:YUE MANRIQUE MD 07/14/23 Aspirin (Aspirin Low Strength) 81 Mg Chw, 81 MG PO DAILY, #30 TAB.CHEW Prov:YUE MANRIQUE MD 07/14/23 Amiodarone Hcl (Amiodarone Hcl) 200 Mg Tab, 1 TAB PO BID for 30 Days, #60 TAB 0 Refills Prov:YUE MANRIQUE MD 07/14/23 Hydrocodone-Acetaminophen (Hydrocodone Bitartrate/AC 5-325 mg) 1 Tab Tab, 1 TAB PO Q6HP PRN, #20 TAB Prov:DEIDRE CORTES 12/06/22 Acetaminophen W/ Codeine (Tylenol W/Cod #3) 1 Tab Tb, 1 TAB PO QIDP, #10 TAB 0 Refills Prov:YESSI TOUSSAINT 02/23/22 Cyclobenzaprine Hcl (Cyclobenzaprine Hcl) 5 Mg Tab, 1 TAB PO QPM PRN, #14 TAB 0 Refills Prov:YESSI TOUSSAINT 02/23/22 Atorvastatin Calcium (Lipitor) 40 Mg Tab, 1 TAB PO DAILY, #30 TAB Prov:CLARISSA CASTRO MD 02/26/21 Enalapril Maleate (Vasotec) 5 Mg Tab, 1 TAB PO DAILY, #30 TAB Prov:CLARISSA CASTRO MD 02/26/21 Cholecalciferol (VITAMIN D3) 5,000 Unit Tab, 5000 UNIT PO DAILY, #30 TAB Prov:CLARISSA CASTRO MD 02/26/21 Furosemide (Lasix) 40 Mg Tab, 40 MG PO DAILY for 30 Days, #30 TAB Prov:CLARISSA CASTRO MD 02/26/21 Information Source: Patient Mode of Arrival: Ambulatory Timing: Days Duration: Since onset, Days Location of Back pain: (R) Lumbar Severity: Moderate 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: None Quality: Aching, Cramping Onset: Other (COUGHING) History of: Chronic Back Pain Modifying Factors: Movement Associated signs and symptoms: None Past Medical History PAST MEDICAL HISTORY: CHF, DM, High Lipids, HTN Past Medical History (Other): CHRONIC LOWER BACK PAIN Surgical History: Denies all surgeries Family History Family History: Reviewed,noncontributory to illness, Family hx of Cancer, Family hx of heart hevre Social History Smoker: Quit Less Than 1 Year Alcohol: Occasionally Drugs: Methamphetamine Lives In: Home Constitutional: denies: chills, diaphoresis, fatigue, fever, malaise, sweats, weakness, others EENTM: denies: blurred vision, double vision, ear bleeding, ear discharge, ear drainage, ear pain, ear ringing, eye pain, eye redness, hearing loss, mouth pain, mouth swelling, nasal discharge, nose bleeding, nose congestion, nose pain, photophobia, tearing, throat pain, throat swelling, voice changes, others Respiratory: denies: cough, hemoptysis, orthopnea, SOB at rest, shortness of breath, SOB with excertion, stridor, wheezing, others Cardiovascular: denies: chest pain, dizzy spells, diaphoresis, Dyspnea on exe rtion, edema, irregular heart beat, left arm pain, lightheadedness, palpitations, PND, syncope, others Gastrointestinal: denies: abdomen distended, abdominal pain, blood streaked bowels, constipated, diarrhea, dysphagia, difficulty swallowing, hematemesis, melena, nausea, poor appetite, poor fluid intake, rectal bleeding, rectal pain, vomiting, others Genitourinary: denies: burning, dysuria, flank pain, frequency, hematuria, incontinence, penile discharge, penile sore, pain, testicle pain, testicle swelling, urgency, others Neurological: denies: dizziness, fainting, headache, left sided numbness, left sided weakness, numbness, paresthesia, pre-existing deficit, right sided numbness, right sided weakness, seizure, speech problems, tingling, tremors, weakness, others Musculoskeletal: reports: back pain (LOWER BACK PAIN), muscle pain; denies: gout, joint pain, joint swelling, muscle stiffness, neck pain, others Integumetry: denies: bruises, change in color, change in hair/nails, dryness, laceration, lesions, lumps, rash, wounds, others Allergic/Immunocompromised: denies: Difficulty Healing, Frequent Infections, Hives, Itching, others Hematologic/Lymphatic: denies: anemia, blood clots, easy bleeding, easy bruising, swollen glands, others Endocrine: denies: excessive hunger, excessive sweating, excessive thirst, excessive urination, flushing, intolerance to cold, intolerance to heat, unexplained weight gain, unexplained weight loss, others Psychiatric: denies: anxiety, bipolar disorder, depression, hopeless, panic disorder, schizophrenia, sleepless, suicidal, others All Other Systems: Reviewed and Negative Physical Exam General Appearance: No Apparent Distress, Obese HEENT: Normal ENT Inspection, PERRL/EOMI, Pharynx Normal, TMs Normal Neck: Full Range of Motion, Non-Tender, Normal, Normal Inspection Respiratory: Chest Non-Tender, Lungs Clear, No Accessory Muscle Use, No Respiratory Distress, Normal Breath Sounds Cardiovascular: No Edema, No JVD, No Murmur, No Gallop, Normal Peripheral Pulses, Regular Rate/Rhythm Breast Exam: Deferred Gastrointestinal: No Organomegaly, Non Tender, No Pulsatile Mass, Normal Bowel Sounds, Soft Genitalia: Deferred Pelvic: Deferred Rectal: Deferred Extremities: No calf tenderness, Normal capillary refill, Normal inspection, Normal range of motion, Non-tender, No pedal edema Musculoskeletal : Location: Right Extremity Location: Back Apperance: Tenderness: Moderate (MUSCLE SPASM ON RIGHT LOW BACK, NO BONY TENDERNESS, SWELLING AND DEFORMITY. ) Neurologic: Alert, dredge runner II-XII nml as Tested, No Motor Deficits, Normal Affect, Normal Mood, No Sensory Deficits Cerebellar Function: Normal Reflexes: Normal Skin: Dry, Normal Color, Warm Peripheral Pulses: 2+ carotid (R), 2+ carotid (L) Lymphatic: No Adenopathy Was a procedure done? Was a procedure done?: No Back Pain Differential Dx Differential Diagnosis: Musculoskeletal Pain Other Differential Diagnosis LOW BACK STRAIN, ACUTE EXACERBATION OF CHRONIC LOW BACK PAIN X-Ray, Labs, Meds, VS Vital Signs Date Time Temp Pulse Resp B/P (MAP) Pulse Ox O2 Delivery O2 Flow Rate FiO2 10/07/24 06:19 97.8 95 22 151/82 (105) 93 Current Medications Medications (Trade) Dose Ordered Sig/Ralph Route Start Time Stop Time Status Last Admin Ketorolac Tromethamine (Toradol Injection) 60 mg ONCE ONCE IM 10/07/24 07:00 10/07/24 07:01 DC 10/07/24 07:36 Acetaminophen/ Hydrocodone Bitart ([place] 10/325MG Tab) 1 tab ONCE ONCE PO 10/07/24 07:00 10/07/24 07:01 DC 10/07/24 07:35 X-Ray, Labs, Meds, VS Comment EXTERNAL MEDICAL RECORDS REVIEWED: [NONE] INDEPENDENT HISTORIANS: [NONE] SOCIAL DETERMINANTS OF HEALTH: [NONE] LABS ORDERED: NONE REVIEWED AND INTERPRETED RESULTS: NONE IMAGING ORDERED: NONE TREATMENTS ORDERED: TORADOL 60 MG IM, [place] 10/325 MG P.O. PROCEDURES PERFORMED: NONE CRITICAL CARE TIME: NONE I HAVE DISCUSSED THE PATIENT WITH THE ATTENDING PHYSICIAN DR. HOFFMANN AND HE AGREES WITH THE PATIENT'S PLAN OF CARE AND DISPOSITION. BASED ON HISTORY OF PRESENT ILLNESS, AND PHYSICAL EXAM, PATIENT WILL BE DISCHARGED HOME. DISCUSSED PLAN FOR DISCHARGE HOME WITH RX [IBUPROFEN 800MG]. MEDICATION WARNINGS GIVEN. SHARED DECISION MAKING: PATIENT INSTRUCTED TO FOLLOW UP WITH PRIMARY CARE PROVIDER IN 1-2 DAYS FOR RE-EVALUATION OF SYMPTOMS. PATIENT VERBALIZES UND ERSTANDING TO RETURN TO ED FOR NEW OR WORSENING SYMPTOMS OR IF FOLLOW UP WITH PCP CANNOT BE OBTAINED. PATIENT FEELS COMFORTABLE GOING HOME AT THIS TIME. ALL QUESTIONS ADDRESSED AT TIME OF DISCHARGE. Time of 1ST Reevaluation: 08:00 Reevaluation 1ST: Improved Patient Education/Counseling: Diagnosis, Treatment, Need For Follow Up Family Education/Counseling: Diagnosis, Treatment, Need For Follow Up Medical Screening: No EMC Exist At This Time Departure 1 Departure Time of Disposition: 08:10 Impression: Primary Impression: Low back strain Qualified Codes: S39.012A - Strain of muscle, fascia and tendon of lower back, initial encounter Disposition: HOME / SELF CARE / HOMELESS Condition: Stable Additional Instructions: FOLLOW-UP WITH PCP IN 1 TO 2 DAYS. TAKE MEDICATIONS PRESCRIBED. RETURN TO ED FOR ANY NEW OR WORSENING SYMPTOMS. e-Prescriptions Baclofen (Baclofen) 10 Mg Tab 10 MG PO BID, #20 TAB Prov: ARGENTINA TAVARES 10/07/24 Ibuprofen (Ibuprofen) 800 Mg Tab 1 TAB PO TID, #30 TAB Prov: ARGENTINA TAVARES 10/07/24 Discharged With: Self Critical Care Note Critical Care Time?: No Stability Stability form required: No I personally scribed for ARGENTINA TAVARES ([email or web address]) on 10/07/24 at 07:07. Electronically submitted by Gregorio Liu ([email or web address]). ARGENTINA TAVARES Oct 07, 2024 07:07
[2024-10-07] MEDS: HYDROcodone-ACET 10/325MG TAB PO ONE (07:35)
[2024-10-07] MEDS: KETOROLAC TROMETH 60MG/2ML VIAL IM ONE (07:36)
[2024-10-07] MEDS ORDERED: BACL10TA PO (08:01)
[2024-10-07] MEDS ORDERED: IBUP-1456 PO (08:01)
== END 2024-10-07 07:59 | disposition home or self-care (01) ==
LOC: ER 05:42
DX: S39.012A Strain of muscle, fascia and tendon of lower back, initial encounter (principal); E78.9 Disorder of lipoprotein metabolism, unspecified; E11.9 Type 2 diabetes mellitus without complications; I11.0 Hypertensive heart disease with heart failure; I50.89 Other heart failure; F15.90 Other stimulant use, unspecified, uncomplicated; Z79.899 Other long term (current) drug therapy; Z79.84 Long term (current) use of oral hypoglycemic drugs; X58.XXXA Exposure to other specified factors, initial encounter; Y93.89 Activity, other specified; Y92.89 Other specified places as the place of occurrence of the external cause; Y99.8 Other external cause status
CPT/HCPCS: 96372; 99283; J1885

== ENCOUNTER 2024-10-11 02:51 | Emergency (ER) | payer OTHER ==
[~2024-10-11] VITALS: Ht 165.1 cm; Wt 125.0 kg
[~2024-10-11 02:51] MED LIST changes: +BACL10TA PO; +IBUP-1456 PO
--- NOTE | 2024-10-11 03:29 | ED.PDOC ---
History of Present Illness HPI Comments 39-year-old male with PMHx CHF, HLD, Sleep Apnea presents with a chief complaint of flank pain x onset Wednesday with bruising starting today. Patient states that he was seen here last Wednesday after having a "pop" on his right flank. Patient reports that he was given pain medication and sent home. Patient is now reporting that the pain is worse and now has bruising to his right flank. Patient denies any trauma or falls. Time Seen by MD: 03:18 Primary Care Provider: PRECIADO Reviewed Notes: Medications, Allergies Allergies: Coded Allergies: NO KNOWN ALLERGIES (Unverified , 02/24/21) Home Meds Active Scripts Baclofen (Baclofen) 10 Mg Tab, 10 MG PO BID, #20 TAB Prov:ARGENTINA TAVARES 10/07/24 Ibuprofen (Ibuprofen) 800 Mg Tab, 1 TAB PO TID, #30 TAB Prov:ARGENTINA TAVARES 10/07/24 Metoprolol Tartrate (Lopressor) 25 Mg Tb, 25 MG PO BID, #60 TAB Prov:YUE MANRIQUE MD 07/14/23 Apixaban Base (ELIQUIS) 5 Mg Tab, 5 MG PO BID, #60 TAB Prov:YUE MANRIQUE MD 07/14/23 Aspirin (Aspirin Low Strength) 81 Mg Chw, 81 MG PO DAILY, #30 TAB.CHEW Prov:YUE MANRIQUE MD 07/14/23 Amiodarone Hcl (Amiodarone Hcl) 200 Mg Tab, 1 TAB PO BID for 30 Days, #60 TAB 0 Refills Prov:YUE MANRIQUE MD 07/14/23 Hydrocodone-Acetaminophen (Hydrocodone Bitartrate/AC 5-325 mg) 1 Tab Tab, 1 TAB PO Q6HP PRN, #20 TAB Prov:DEIDRE CORTES 12/06/22 Acetaminophen W/ Codeine (Tylenol W/Cod #3) 1 Tab Tb, 1 TAB PO QIDP, #10 TAB 0 Refills Prov:YESSI TOUSSAINT 02/23/22 Cyclobenzaprine Hcl (Cyclobenzaprine Hcl) 5 Mg Tab, 1 TAB PO QPM PRN, #14 TAB 0 Refills Prov:YESSI TOUSSAINT 02/23/22 Atorvastatin Calcium (Lipitor) 40 Mg Tab, 1 TAB PO DAILY, #30 TAB Prov:CLARISSA CASTRO MD 02/26/21 Enalapril Maleate (Vasotec) 5 Mg Tab, 1 TAB PO DAILY, #30 TAB Prov:CLARISSA CASTRO MD 02/26/21 Cholecalciferol (VITAMIN D3) 5,000 Unit Tab, 5000 UNIT PO DAILY, #30 TAB Prov:CLARISSA CASTRO MD 02/26/21 Furosemide (Lasix) 40 Mg Tab, 40 MG PO DAILY for 30 Days, #30 TAB Prov:CLARISSA CASTRO MD 02/26/21 Information Source: Patient Mode of Arrival: Ambulatory Severity: Moderate Timing: Days Duration: Since onset 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: None Past Medical History PAST MEDICAL HISTORY: CHF, DM, High Lipids, HTN Surgical History: Denies all surgeries Family History Family History: Reviewed,noncontributory to illness, Family hx of Cancer, Family hx of heart hever Social History Smoker: Quit Less Than 1 Year Alcohol: Occasionally Drugs: Methamphetamine Lives In: Home Constitutional: denies: chills, diaphoresis, fatigue, fever, malaise, sweats, weakness, others EENTM: denies: blurred vision, double vision, ear bleeding, ear discharge, ear drainage, ear pain, ear ringing, eye pain, eye redness, hearing loss, mouth pain, mouth swelling, nasal discharge, nose bleeding, nose congestion, nose p ain, photophobia, tearing, throat pain, throat swelling, voice changes, others Respiratory: denies: cough, hemoptysis, orthopnea, SOB at rest, shortness of breath, SOB with excertion, stridor, wheezing, others Cardiovascular: denies: chest pain, dizzy spells, diaphoresis, Dyspnea on exertion, edema, irregular heart beat, left arm pain, lightheadedness, palpitations, PND, syncope, others Gastrointestinal: denies: abdomen distended, abdominal pain, blood streaked bowels, constipated, diarrhea, dysphagia, difficulty swallowing, hematemesis, melena, nausea, poor appetite, poor fluid intake, rectal bleeding, rectal pain, vomiting, others Genitourinary: reports: flank pain; denies: burning, dysuria, frequency, hematuria, incontinence, penile discharge, penile sore, pain, testicle pain, testicle swelling, urgency, others Neurological: denies: dizziness, fainting, headache, left sided numbness, left sided weakness, numbness, paresthesia, pre-existing deficit, right sided numbness, right sided weakness, seizure, speech problems, tingling, tremors, weakness, others Musculoskeletal: denies: back pain, gout, joint pain, joint swelling, muscle pain, muscle stiffness, neck pain, others Integumetry: reports: bruises; denies: change in color, change in hair/nails, dryness, laceration, lesions, lumps, rash, wounds, others Allergic/Immunocompromised: denies: Difficulty Healing, Frequent Infections, Hives, Itching, others Hematologic/Lymphatic: denies: anemia, blood clots, easy bleeding, easy bruising, swollen glands, others Endocrine: denies: excessive hunger, excessive sweating, excessive thirst, excessive urination, flushing, intolerance to cold, intolerance to heat, unexplained weight gain, unexplained weight loss, others Psychiatric: denies: anxiety, bipolar disorder, depression, hopeless, panic disorder, schizophrenia, sleepless, suicidal, others All Other Systems: Reviewed and Negative Physical Exam General Appearance: Moderate Distress, Normal HEENT: Normal ENT Inspection, Pharynx Normal, TMs Normal Neck: Full Range of Motion, Non-Tender, Normal, Normal Inspection Respiratory: Chest Non-Tender, Lungs Clear, No Accessory Muscle Use, No Respiratory Distress, Normal Breath Sounds Cardiovascular: No Edema, No JVD, No Murmur, No Gallop, Normal Peripheral Pulses, Regular Rate/Rhythm Breast Exam: Deferred Gastrointestinal: No Organomegaly, Non Tender, No Pulsatile Mass, Normal Bowel Sounds, Soft Genitalia: Deferred Pelvic: Deferred Rectal: Deferred Extremities: No calf tenderness, Normal capillary refill, Normal inspection, Normal range of motion, Non-tender, No pedal edema Musculoskeletal : Apperance: Normal Neurologic: Alert, candy feeder II-XII nml as Tested, No Motor Deficits, Normal Affect, Normal Mood, No Sensory Deficits Cerebellar Function: Normal Reflexes: Normal Skin: Dry, Normal Color, Warm Peripheral Pulses: 3+ Radial (R), 3+ Radial (L) Lymphatic: No Adenopathy Was a procedure done? Was a procedure done?: No Differential Dx Considerations may include: Anemia Electrolyte imbalance X-Ray, Labs, Meds, VS Vital Signs Date Time Temp Pulse Resp B/P (MAP) Pulse Ox O2 Delivery O2 Flow Rate FiO2 10/11/24 07:27 96 18 160/108 (125) 98 10/11/24 05:16 98.3 93 20 149/103 (118) 95 98.3 10/11/24 05:16 92 20 95 Nasal Cannula 3.0 10/11/24 04:16 Nasal Cannula* 3 32 10/11/24 04:15 96 20 129/76 (93) 93 10/11/24 03:05 98.3 98 20 151/92 (111) 94 Lab Test 10/11/24 05:20 10/11/24 03:40 Range/Units Urine Color Yellow Yellow Urine Clarity Clear Clear Urine pH 6.0 5.0-9.0 Urine Specific Neal > 1.050 H 1.001-1.035 Urine Protein 3+ H Negative Urine Ketones Negative Negative Urine Blood Trace H Negative /uL Urine Nitrite Negative Negative Urine Bilirubin Negative Negative Urine Urobilinogen Normal Negative mg/dL Urine Leukocyte Esterase Negative Negative /uL Urine RBC 2 0 - 3 /hpf Urine WBC 1 0 - 3 /hpf Urine Squamous Epithelial Cells Few <5 /hpf Urine Bacteria None seen None Seen /hpf Urine Glucose Normal Normal mg/dL White Blood Count 7.4 4.4-10.8 10^3/uL Red Blood Count 6.28 H 4.5-5.90 10^6/uL Hemoglobin 18.9 H 13.5-17.5 g/dL Hematocrit 57.2 H 41.0-53.0 % Mean Corpuscular Volume 91.0 80.0-100.0 fL Mean Corpuscular Hemoglobin 30.0 28.0-32.0 pg Mean Corpuscular Hemoglobin Concent 33.0 32.0-36.0 g/dL Red Cell Distribution Width 14.9 H 11.8-14.3 % Platelet Count 157 140-450 10^3/uL Mean Platelet Volume 9.3 6.9-10.8 fL Neutrophils (%) (Auto) 72.8 37.0-80.0 % Lymphocytes (%) (Auto) 16.5 10.0-50.0 % Monocytes (%) (Auto) 8.5 0.0-12.0 % Eosinophils (%) (Auto) 1.6 0.0-7.0 % Basophils (%) (Auto) 0.6 0.0-2.0 % Neutrophils # (Auto) 5.4 1.6-8.6 10 ^3/uL Lymphocytes # (Auto) 1.2 0.4-5.4 10 ^3/uL Monocytes # (Auto) 0.6 0-1.3 10 ^3/uL Eosinophils # (Auto) 0.1 0-0.8 10 ^3/uL Basophils # (Auto) 0 0-0.2 10 ^3/uL Nucleated Red Blood Cells 0.2 % Platelet Estimate Adequate Large Platelets Few Giant Platelets Few Stomatocytes Moderate Prothrombin Time 11.9 H 9.3-11.8 sec Prothrombin Time INR 1.13 0.9-1.15 Activated Partial Thromboplast Time 30.0 24.5-34.5 SEC Sodium Level 139 136-145 mmol/L Potassium Level 4.2 3.5-5.1 mmol/L Chloride Level 106 98-107 mmol/L Carbon Dioxide Level 29 20-31 mmol/L Anion Gap 4 L 5-15 Blood Urea Nitrogen 13 9-23 mg/dL Creatinine 0.85 0.700-1.30 mg/dL Glomerular Filtration Rate Calc 113 >90 mL/min BUN/Creatinine Ratio 15.3 10.0-20.0 Serum Glucose 173 H 74-106 mg/dL Calcium Level 7.8 L 8.7-10.4 mg/dL Current Medications Medications (Trade) Dose Ordered Sig/Ralph Route Start Time Stop Time Status Last Admin Acetaminophen/ Hydrocodone Bitart ([place] 5/325MG Tab) 1 tab ONCE ONCE PO 10/11/24 03:30 10/11/24 03:31 DC 10/11/24 04:23 Acetaminophen/ Hydrocodone Bitart ([place] 10/325MG Tab) 1 tab ONCE ONCE PO 10/11/24 07:30 10/11/24 07:31 DC 10/11/24 07:39 Patient alert. Complaining of abdominal discomfort. Vitals stable. Answering all questions. CT scan of the abdomen reviewed does not show any acute changes. Was given [place]. WBC within normal limits. Hemoglobin slightly elevated. He was told to drink fluids. Blood sugar elevated. Establish intravenous access. Was given fluids. Reviewed his history. Explained to the patient. [facility] Has an appointment with his primary care physician. Was told to come back if there is any problem. Time of 1ST Reevaluation: 03:48 Reevaluation 1ST: Unchanged Time of 2ND Reevaluation: 08:09 Reevaluation 2ND: Improved Patient Education/Counseling: Diagnosis, Treatment, Prognosis Family Education/Counseling: No Family Present Departure 1 Departure Time of Disposition: 08:10 Impression: Primary Impression: Uncontrolled diabetes mellitus Qualified Codes: E13.65 - Other specified diabetes mellitus with hyperglycemia Additional Impression: Gastritis Qualified Codes: K29.00 - Acute gastritis without bleeding Disposition: ADMITTED INPATIENT Admit to: Med Surg Condition: Guarded e-Prescriptions Pantoprazole Sodium Sesquihydr (Protonix) 40 Mg Tab 40 MG PO DAILY for 5 Days, #5 TAB Prov: DARRON HOFFMANN MD 10/11/24 Critical Care Note Critical Care Time?: No Stability Stability form required: No Heart Score Heart Score: Heart Score Response (Comments) Value History N/A 0 EKG N/A 0 Age N/A 0 Risk Factors N/A 0 Troponin N/A 0 Total 0 I personally scribed for ALLAN PAEZ MD ([email or web address]) on 10/11/24 at 03:29. Electronically submitted by Brandan Girard ([email or web address]). ALLAN PAEZ MD Oct 11, 2024 03:29 DARRON HOFFMANN MD Oct 11, 2024 08:11
[2024-10-11] MEDS: IOHEXOL 300 MG/ML 100ML BOTTLE IJ ONE (03:52)
[2024-10-11 04:07] LABS: Basophils # (auto) 0 10 ^3/uL (0-0.2); Basophils % (auto) 0.6 % (0.0-2.0); Eosinophils # (auto) 0.1 10 ^3/uL (0-0.8); Hemoglobin 18.9 g/dL (13.5-17.5); Lymphocytes # (auto) 1.2 10 ^3/uL (0.4-5.4); Monocytes # (auto) 0.6 10 ^3/uL (0-1.3); Nucleated Red Blood Cells % 0.2 %; White Blood Cell 7.4 10^3/uL (4.4-10.8)
[2024-10-11 04:10] LABS: Eosinophils % (auto) 1.6 % (0.0-7.0); Lymphocytes % (auto) 16.5 % (10.0-50.0); Monocytes % (auto) 8.5 % (0.0-12.0); Neutrophils # (auto) 5.4 10 ^3/uL (1.6-8.6); Neutrophils % (auto) 72.8 % (37.0-80.0); Platelet Count (auto) 157 10^3/uL (140-450); Red Blood Cells 6.28 10^6/uL (4.5-5.90); Red Cell Distribution Width 14.9 % (11.8-14.3)
[2024-10-11 04:11] LABS: Chloride 106 mmol/L (98-107); Potassium 4.2 mmol/L (3.5-5.1); Sodium 139 mmol/L (136-145)
[2024-10-11 04:12] LABS: Anion Gap 4 (5-15); Carbon Dioxide 29 mmol/L (20-31)
[2024-10-11 04:17] LABS: BUN/Creatinine Ratio 15.3 (10.0-20.0); Blood Urea Nitrogen 13 mg/dL (9-23)
[2024-10-11 04:21] LABS: INR 1.13 (0.9-1.15); Prothrombin Time 11.9 sec (9.3-11.8)
[2024-10-11 04:22] LABS: Calcium 7.8 mg/dL (8.7-10.4); Glucose 173 mg/dL (74-106)
[2024-10-11] MEDS: HYDROcodone-ACET 5/325MG TAB PO ONE (04:23)
[2024-10-11 04:33] LABS: Hematocrit 57.2 % (41.0-53.0)
[2024-10-11 05:16] VITALS: TEMP 98.3
--- NOTE | 2024-10-11 05:17 | DVH ---
Exam: CT CT AB PEL WITH IV CON ONLY History: right flank pain with bruising COMPARISON: CT CT AB PEL WO CON-NO ORAL OR IV on DOS: 04/22/23 Technique: Multidetector spiral CT of the abdomen and pelvis was performed from lung bases to pubic s ymphysis. Intravenous contrast was administered during this examination. Portal venous imaging was obtained. Axial, coronal and sagittal multiplanar reformats were performed by the technologist on a separate workstation. Radiation Dose : 1. Abdomen/Pelvis: CTDIvol 27 mGy, DLP 1470.97 mGy*cm. Findings: Lung Bases: No acute or significant lung base finding. Normal heart size. No pleural or pericardial effusion. Liver: The liver is normal in size. No focal lesions. Normal hepatic vascular enhancement. Gallbladder and Biliary Tree: Unremarkable Spleen: Unremarkable Pancreas: The pancreas is normal in appearance without focal lesions or abnormal enhancement. Adrenal Glands: Unremarkable Kidneys: No hydronephrosis. Bladder: Unremarkable Bowel: The stomach is grossly normal in appearance. Diverticulosis. Moderate volume colonic stool. The appendix is not visualized; however, no secondary findings of acute appendicitis identified. Ascites: Absent Lymphadenopathy: No mesenteric, retroperitoneal or periportal lymphadenopathy. Abdominal Wall and Mesentery: Unremarkable. Vasculature: The visualized abdominal aorta is normal in size and caliber. Abdominal and pelvic vess els demonstrate normal enhancement. Pelvic Organs: Unremarkable Musculoskeletal: No aggressive focal bony lesions, acute fractures or dislocation. IMPRESSION: No acute abdominal or pelvic finding. Radiation optimization: All CT scans at this facility use at least one of these dose optimization kate hniques: automated exposure control mA and/or kV adjustment per patient size (includes targeted exam s where dose is matched to clinical indication) or iterative reconstruction.
--- NOTE | 2024-10-11 05:19 | DVH ---
CHEST RADIOGRAPH Indication: right flank pain Technique: Single frontal view of the chest was obtained COMPARISON: XY CHEST XRAY 1 VIEW on DOS: 07/12/23, XY CHEST PORTABLE on DOS: 03/20/23, CHEST PORTABLE on DOS: 02/25/21 FINDINGS: Lines and Tubes: None Lungs: Diffuse increased interstitial prominence. Pleura: No effusion. No pneumothorax. Cardiomediastinal contours: Unremarkable Bones: Unremarkable IMPRESSION: Mild congestion
[2024-10-11 05:23] LABS: Giant Platelets Few; Large Platelets FEW; Platelet Estimate Adequate; Stomatocytes Moderate
[2024-10-11 06:26] LABS: Urine Bacteria None Seen /hpf (None Seen)
[2024-10-11 07:12] LABS: Urine Blood TRACE /uL (Negative); Urine Clarity Clear (Clear); Urine Color Yellow (Yellow); Urine Protein, UAD 3+ (Negative); Urine Urobilinogen Normal (Negative); Urine WBC 1 /hpf (0 - 3)
[2024-10-11 07:37] LABS: Urine Specific Gravity > 1.050 (1.001-1.035)
[2024-10-11] MEDS: HYDROcodone-ACET 10/325MG TAB PO ONE (07:39)
[2024-10-11] MEDS ORDERED: PANT40TA2 PO (08:15)
[2024-10-11] MEDS: SODIUM CHLORIDE 0.9% 1,000 ML IV ONE (08:22)
--- NOTE | 2024-10-11 08:51 | DVHDS2 ---
New Physician D'charge PN Admitting Diagnosis Admitting Diagnosis flank pain Discharge Diagnosis musculoskeletal pain Operations or Procedures none Reason(s) For Hospitalization Surgery Hospital Course 39 M who comes to ER for R sided flank pain. He states the pain has worsened over the last few days. HIs intial vitals signs showed no fever and his BP was stable. He had a CBC done and it revealed to be normal and chemistry panel was also nml. He had a CT abdomen done which showed no acute abnormalities. CXR was also clear. Given nml lab data and imaging, patient will be discharged home with outpt PCP follow up. While here in the ER he was given PO pain meds along with IV fluid hydration. [facility] to arrange for all outpt follow up and patient to be discharged home. Discussed with ER provider and all parties in agreement. Treatment Plan Discharge Condition of Discharge Good Disposition Home Discharge Instructions Diet: Cardiac 2g Na,low cholest Activity: Light activity Medications: see med sheet Follow Up Care Discharge Statement: "Patient was advised to return to the ER or call 911 if any headaches, dizziness, shortness of breath, chest pain, abdominal pain, bleeding, fevers, or worsening of medical condition. Patient was counseled about treatment plan, medications, possible side effects, patientverbalized understanding. All questions were answered to the best of my ability. This discharge took greater then 30 minutes in planning, reviewing documentation, counseling the patient, and discussing with other team members." FLAQUITO BYNUM MD Oct 11, 2024 08:51
[2024-10-11 09:07] VITALS: BP 140/96; PULSE 88; RESP 14; O2SAT 93
== END 2024-10-11 09:30 | disposition home or self-care (01) ==
LOC: ER 02:51
DX: K29.70 Gastritis, unspecified, without bleeding (principal); E11.65 Type 2 diabetes mellitus with hyperglycemia; E78.5 Hyperlipidemia, unspecified; I11.0 Hypertensive heart disease with heart failure; I50.9 Heart failure, unspecified; M79.18 Myalgia, other site; F15.10 Other stimulant abuse, uncomplicated; Z79.01 Long term (current) use of anticoagulants; Z79.1 Long term (current) use of non-steroidal anti-inflammatories (NSAID); Z79.82 Long term (current) use of aspirin; Z79.899 Other long term (current) drug therapy; Z87.891 Personal history of nicotine dependence
CPT/HCPCS: 36415; 71045; 74177; 80048; 81001; 85025; 85610; 85730; 96360; 99285; J7030; Q9967

== ENCOUNTER 2025-06-23 18:53 | Emergency (ER) | payer OTHER ==
[~2025-06-23] VITALS: Ht 165.1 cm; Wt 124.5 kg
[~2025-06-23 18:53] MED LIST changes: +PANT40TA2 PO
[2025-06-23] MEDS: ALBUTEROL SULF 2.5 MG/0.5ML(0.5%) NEB SOLN NEB ONE ×2 (19:45→23:38)
[2025-06-23 19:59] LABS: Hematocrit 67.3 % (41.0-53.0); Mean Corpuscular Hemoglobin 28.0 pg (28.0-32.0); Mean Corpuscular Volume 87.9 fL (80.0-100.0); Nucleated Red Blood Cells % 1.0 %
--- NOTE | 2025-06-23 20:00 | ED.PDOC ---
Psychiatric HPI Comments 40-year-old male who came to ER for anxiety. Patient does have history of hypertension, diabetes and congestive heart failure. Has been feeling very anxious for the past few days, has been unable to sleep the past few days. Patient also complaining of shortness a breath. Chief Complaint: Anxiety Time Seen by MD: 21:05 Primary Care Provider: PRECIADO Reviewed Notes: Nurses Notes Information Source: Patient Mode of Arrival: Ambulatory Severity: Unable to Care for Self, Unable to Control Self Severity of Pain: Moderate Severity of Mental Status: Moderate Severity of Symptoms: Moderate Timing: Hours Duration: Since onset Presents with: Anxiety, Unclear Thinking Associated signs and symptoms: Hopeless, Anxiety Past Medical History PAST MEDICAL HISTORY: Anxiety, CHF, DM, High Lipids, HTN Surgical History: Denies all surgeries Family History Family History: Reviewed,noncontributory to illness, Family hx of Cancer, Family hx of heart hever Social History Smoker: Quit Less Than 1 Year Alcohol: Denies ETOH Use Drugs: Denies Drug Use Lives In: Home Constitutional: denies: chills, diaphoresis, fatigue, fever, malaise, sweats, weakness, others EENTM: denies: blurred vision, double vision, ear bleeding, ear discharge, ear drainage, ear pain, ear ringing, eye pain, eye redness, hearing loss, mouth pain, mouth swelling, nasal discharge, nose bleeding, nose congestion, nose pain, photophobia, tearing, throat pain, throat swelling, voice changes, others Respiratory: reports: shortness of breath; denies: cough, hemoptysis, orthopnea, SOB at rest, SOB with excertion, stridor, wheezing, others Cardiovascular: denies: chest pain, dizzy spells, diaphoresis, Dyspnea on exertion, edema, irregular heart beat, left arm pain, lightheadedness, palpitations, PND, syncope, others Gastrointestinal: denies: abdomen distended, abdominal pain, blood streaked bowels, constipated, diarrhea, dysphagia, difficulty swallowing, hematemesis, melena, nausea, poor appetite, poor fluid intake, rectal bleeding, rectal pain, vomiting, others Genitourinary: denies: burning, dysuria, flank pain, frequency, hematuria, incontinence, penile discharge, penile sore, pain, testicle pain, testicle swelling, urgency, others Neurological: denies: dizziness, fainting, headache, left sided numbness, left sided weakness, numbness, paresthesia, pre-existing deficit, right sided numbness, right sided weakness, seizure, speech problems, tingling, tremors, weakness, others Musculoskeletal: denies: back pain, gout, joint pain, joint swelling, muscle pain, muscle stiffness, neck pain, others Integumetry: denies: bruises, change in color, change in hair/nails, dryness, laceration, lesions, lumps, rash, wounds, others Allergic/Immunocompromised: denies: Difficulty Healing, Frequent Infections, Hives, Itching, others Hematologic/Lymphatic: denies: anemia, blood clots, easy bleeding, easy bruising, swollen glands, others Endocrine: denies: excessive hunger, excessive sweating, excessive thirst, excessive urination, flushing, intolerance to cold, intolerance to heat, unexplained weight gain, unexplained weight loss, others Psychiatric: reports: anxiety, sleepless; denies: bipolar disorder, depression, hopeless, panic disorder, schizophrenia, suicidal, others Physical Exam General Appearance: No Apparent Distress, Normal HEENT: Normal ENT Inspection, Pharynx Normal, TMs Normal Neck: Full Range of Motion, Non-Tender, Normal, Normal Inspection Respiratory: Chest Non-Tender, Lungs Clear, No Accessory Muscle Use, No Respiratory Distress, Normal Breath Sounds Cardiovascular: No Edema, No JVD, No Murmur, No Gallop, Normal Peripheral Pulses, Regular Rate/Rhythm Breast Exam: Deferred Gastrointestinal: No Organomegaly, Non Tender, No Pulsatile Mass, Normal Bowel Sounds, Soft Genitalia: Deferred Pelvic: Deferred Rectal: Deferred Extremities: No calf tenderness, Normal capillary refill, Normal inspection, Normal range of motion, Non-tender, No pedal edema Musculoskeletal : Apperance: Normal Neurologic: Alert, brim rounder II-XII nml as Tested, No Motor Deficits, Normal Affect, Normal Mood, No Sensory Deficits Cerebellar Function: Normal Reflexes: Normal Skin: Dry, Normal Color, Warm Lymphatic: No Adenopathy Was a procedure done? Was a procedure done?: No Psych Differential Dx Psych. Differential Dx: Anxiety, Depression, Hopeless, Sleepless X-Ray, Labs, Meds, VS Vital Signs Date Time Temp Pulse Resp B/P (MAP) Pulse Ox O2 Delivery O2 Flow Rate FiO2 06/23/25 19:45 22 94 Nasal Cannula* 2 28 06/23/25 19:01 97.7 94 20 142/98 91 97.7 Lab Test 06/23/25 20:32 06/23/25 19:38 Range/Units Troponin I High Sensitivity Pending 21 </=54 ng/L White Blood Count 6.0 4.4-10.8 10^3/uL Red Blood Count 7.65 H 4.5-5.90 10^6/uL Hemoglobin 21.4 *H 13.5-17.5 g/dL Hematocrit 67.3 H 41.0-53.0 % Mean Corpuscular Volume 87.9 80.0-100.0 fL Mean Corpuscular Hemoglobin 28.0 28.0-32.0 pg Mean Corpuscular Hemoglobin Concent 31.9 L 32.0-36.0 g/dL Red Cell Distribution Width 17.2 H 11.8-14.3 % Platelet Count 153 140-450 10^3/uL Mean Platelet Volume 9.5 6.9-10.8 fL Neutrophils (%) (Auto) 68.1 37.0-80.0 % Lymphocytes (%) (Auto) 21.8 10.0-50.0 % Monocytes (%) (Auto) 7.8 0.0-12.0 % Eosinophils (%) (Auto) 1.7 0.0-7.0 % Basophils (%) (Auto) 0.6 0.0-2.0 % Neutrophils # (Auto) 4.1 1.6-8.6 10 ^3/uL Lymphocytes # (Auto) 1.3 0.4-5.4 10 ^3/uL Monocytes # (Auto) 0.5 0-1.3 10 ^3/uL Eosinophils # (Auto) 0.1 0-0.8 10 ^3/uL Basophils # (Auto) 0 0-0.2 10 ^3/uL Nucleated Red Blood Cells 1.0 % Sodium Level 140 136-145 mmol/L Potassium Level 4.5 3.5-5.1 mmol/L Chloride Level 101 98-107 mmol/L Carbon Dioxide Level 32 H 20-31 mmol/L Anion Gap 7 5-15 Blood Urea Nitrogen 12 9-23 mg/dL Creatinine 0.92 0.700-1.30 mg/dL Glomerular Filtration Rate Calc 108 >90 mL/min BUN/Creatinine Ratio 13.0 10.0-20.0 Serum Glucose 245 H 74-106 mg/dL Calcium Level 8.8 8.7-10.4 mg/dL Total Bilirubin 1.2 H 0.2-1.0 mg/dL Aspartate Amino Transferase (AST) 33 13-40 U/L Alanine Aminotransferase (ALT) 38 7-40 U/L Alkaline Phosphatase 117 H 46-116 U/L B-Type Natriuretic Peptide 136.84 0-100 pg/mL Total Protein 6.1 5.7-8.2 g/dL Albumin 3.6 3.2-4.8 g/dL Current Medications Medications (Trade) Dose Ordered Sig/Ralph Route Start Time Stop Time Status Last Admin Albuterol (Ventolin Medneb) 2.5 mg ONCE ONCE NEB 06/23/25 19:45 06/23/25 19:46 DC 06/23/25 19:45 EXAM: XY CHEST XRAY 1 VIEW CLINICAL HISTORY: SOB TECHNIQUE: Single AP view of the chest WID: COMPARISON: XY CHEST PORTABLE on DOS: 10/11/24 FINDINGS: Lines and tubes: None Chest: Mild cardiomegaly with mild pulmonary vascular congestion. No pleural effusion, pneumothorax, or consolidation. The osseous structures are grossly intact. IMPRESSION: 1. Mild cardiomegaly with mild pulmonary vascular congestion. Time of 1ST Reevaluation: 19:54 Reevaluation 1ST: Unchanged Patient Education/Counseling: Diagnosis, Treatment Family Education/Counseling: No Family Present Departure 1 Departure Time of Disposition: 21:06 Impression: Primary Impression: Acute on chronic diastolic heart failure Additional Impressions: Polycythemia vera Uncontrolled diabetes mellitus Disposition: ADMITTED INPATIENT Admit to: Med Surg Condition: Guarded Discharged With: Self Comments 40-year-old male presents to the emergency department feeling short of breath. On lab review he has polycythemia vera with high H&H of 21 at 67. Type 2 diabetes with hyperglycemia 245. Initial troponin is normal at 21. Chest x-ray shows pulmonary vascular congestion. His hemoglobin hematocrit are very high. I will try to admit the patient for further workup and supportive care Critical Care Note Critical Care Time?: Yes (35 min-critical care time only) Critical care comment: Total critical care time: Approximately 36 minutes Due to a high probability of clinically significant, life threatening deterioration, the patient required my highest level of preparedness to intervene emergently and I personally spent this critical care time directly and personally managing the patient. This critical care time included obtaining a history; examining the patient; pulse oximetry; ordering and review of studies; arranging urgent treatment with development of a management plan; evaluation of patient's response to treatment; frequent reassessment; and, discussions with other providers. This critical care time was performed to assess and manage the high probability of imminent, life-threatening deterioration that could result in multi-organ failure. It was exclusive of separately billable procedures and treating other patients. Stability Stability form required: No Heart Score Heart Score: Heart Score Response (Comments) Value History Moderate Suspicious 1 EKG Repolarization Disturb 1 Age <45 0 Risk Factors 1 or 2 risk factors 1 Troponin Normal limit 0 Total 3 I personally scribed for ELIZABETH TEJADA MD ([email or web address]) on 06/23/25 at 20:00. Electronically submitted by Norbert Garza ([facility]). I personally scribed for ELIZABETH TEJADA MD ([email or web address]) on 06/23/25 at 21:06. Electronically submitted by Norbert Garza ([email or web address]). ELIZABETH TEJADA MD Jun 23, 2025 20:00
[2025-06-23 20:01] LABS: Hemoglobin 21.4 g/dL (13.5-17.5)
[2025-06-23 20:22] LABS: Alanine Aminotransferase 38 U/L (7-40); Albumin 3.6 g/dL (3.2-4.8); Anion Gap 7 (5-15); BUN/Creatinine Ratio 13.0 (10.0-20.0); Bilirubin, Total 1.2 mg/dL (0.2-1.0); Blood Urea Nitrogen 12 mg/dL (9-23); Calcium 8.8 mg/dL (8.7-10.4); Chloride 101 mmol/L (98-107); Potassium 4.5 mmol/L (3.5-5.1); Sodium 140 mmol/L (136-145); Total Protein 6.1 g/dL (5.7-8.2)
[2025-06-23 20:26] LABS: Alkaline Phosphatase 117 U/L (46-116); Carbon Dioxide 32 mmol/L (20-31); Glucose 245 mg/dL (74-106)
[2025-06-23] MEDS: FUROSEMIDE 40 MG/4 ML VIAL IV ONE (23:15)
[2025-06-23] MEDS: IPRATROPIUM BROM 0.5 MG/2.5ML INH SOL NEB ONE (23:38)
[2025-06-24 00:55] VITALS: BP 155/99; PULSE 88; RESP 20; TEMP 98.4; O2SAT 93
== END 2025-06-24 01:49 | disposition home or self-care (01) ==
LOC: ER 18:53
DX: I11.0 Hypertensive heart disease with heart failure (principal); I50.33 Acute on chronic diastolic (congestive) heart failure; D45 Polycythemia vera; E11.65 Type 2 diabetes mellitus with hyperglycemia; F41.9 Anxiety disorder, unspecified; Z87.891 Personal history of nicotine dependence
CPT/HCPCS: 36415; 36600; 71045; 80053; 82805; 83880; 84484; 85025; 85379; 94640; 96374; 99284; J1938

== ENCOUNTER 2025-07-08 12:22 | Emergency (ER) | payer OTHER ==
[~2025-07-08] VITALS: Ht 162.6 cm; Wt 122.7 kg
--- NOTE | 2025-07-08 12:34 | ED.PDOC ---
History of Present Illness HPI Comments 40-year-old male brought in by EMS presents with a chief complaint of flank pain. Per EMS, patient endorsed that he was recently seen here at [facility] and was given Lasix and a CPAP machine to sleep with due to CHF fluid overload. Patient is now presenting with bilateral flank pain. Patient was slightly hypertensive at 154/108. Time Seen by MD: 12:13 Primary Care Provider: PRECIADO Reviewed Notes: Medications, Allergies Allergies: Coded Allergies: NO KNOWN ALLERGIES (Unverified , 02/24/21) Home Meds Active Scripts Pantoprazole Sodium Sesquihydr (Protonix) 40 Mg Tab, 40 MG PO DAILY for 5 Days, #5 TAB Prov:DARRON HOFFMANN MD 10/11/24 Baclofen (Baclofen) 10 Mg Tab, 10 MG PO BID, #20 TAB Prov:ARGENTINA TAVARES 10/07/24 Ibuprofen (Ibuprofen) 800 Mg Tab, 1 TAB PO TID, #30 TAB Prov:ARGENTINA TAVARES 10/07/24 Metoprolol Tartrate (Lopressor) 25 Mg Tb, 25 MG PO BID, #60 TAB Prov:YUE MANRIQUE MD 07/14/23 Apixaban Base (ELIQUIS) 5 Mg Tab, 5 MG PO BID, #60 TAB Prov:YUE MANRIQUE MD 07/14/23 Aspirin (Aspirin Low Strength) 81 Mg Chw, 81 MG PO DAILY, #30 TAB.CHEW Prov:YUE MANRIQUE MD 07/14/23 Amiodarone Hcl (Amiodarone Hcl) 200 Mg Tab, 1 TAB PO BID for 30 Days, #60 TAB 0 Refills Prov:YUE MANRIQUE MD 07/14/23 Hydrocodone-Acetaminophen (Hydrocodone Bitartrate/AC 5-325 mg) 1 Tab Tab, 1 TAB PO Q6HP PRN, #20 TAB Prov:DEIDRE CORTES 12/06/22 Acetaminophen W/ Codeine (Tylenol W/Cod #3) 1 Tab Tb, 1 TAB PO QIDP, #10 TAB 0 Refills Prov:YESSI TOUSSAINT 02/23/22 Cyclobenzaprine Hcl (Cyclobenzaprine Hcl) 5 Mg Tab, 1 TAB PO QPM PRN, #14 TAB 0 Refills Prov:YESSI TOUSSAINT 02/23/22 Atorvastatin Calcium (Lipitor) 40 Mg Tab, 1 TAB PO DAILY, #30 TAB Prov:CLARISSA CASTRO MD 02/26/21 Enalapril Maleate (Vasotec) 5 Mg Tab, 1 TAB PO DAILY, #30 TAB Prov:CLARISSA CASTRO MD 02/26/21 Cholecalciferol (VITAMIN D3) 5,000 Unit Tab, 5000 UNIT PO DAILY, #30 TAB Prov:CLARISSA CASTRO MD 02/26/21 Furosemide (Lasix) 40 Mg Tab, 40 MG PO DAILY for 30 Days, #30 TAB Prov:CLARISSA CASTRO MD 02/26/21 Information Source: Patient, Emergency Med Personnel Mode of Arrival: EMS Severity: Moderate Timing: Days Duration: Since onset 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: Hotel Director Past Medical History PAST MEDICAL HISTORY: Anxiety, CHF, DM, High Lipids, HTN Surgical History: Denies all surgeries Family History Family History: Reviewed,noncontributory to illness, Family hx of Cancer, Family hx of heart hever Social History Smoker: Quit Less Than 1 Year Alcohol: Denies ETOH Use Drugs: Denies Drug Use Lives In: Home Constitutional: denies: chills, diaphoresis, fatigue, fever, malaise, sweats, weakness, others EENTM: denies: blurred vision, double vision, ear bleeding, ear discharge, ear drainage, ear pain, ear ringing, eye pain, eye redness, hearing loss, mouth pain, mouth swelling, nasal discharge, nose bleeding, nose congestion, nose pain, photophobia, tearing, throat pain, throat swelling, voice changes, others Respiratory: denies: cough, hemoptysis, orthopnea, SOB at rest, shortness of breath, SOB with excertion, stridor, wheezing, others Cardiovascular: denies: chest pain, dizzy spells, diaphoresis, Dyspnea on exertion, edema, irregular heart beat, left arm pain, lightheadedness, palpitations, PND, syncope, others Gastrointestinal: denies: abdomen distended, abdominal pain, blood streaked bowels, constipated, diarrhea, dysphagia, difficulty swallowing, hematemesis, melena, nausea, poor appetite, poor fluid intake, rectal bleeding, rectal pain, vomiting, others Genitourinary: reports: flank pain; denies: burning, dysuria, frequency, hematuria, incontinence, penile discharge, penile sore, pain, testicle pain, testicle swelling, urgency, others Neurological: denies: dizziness, fainting, headache, left sided numbness, left sided weakness, numbness, paresthesia, pre-existing deficit, right sided numbness, right sided weakness, seizure, speech problems, tingling, tremors, we akness, others Musculoskeletal: denies: back pain, gout, joint pain, joint swelling, muscle pain, muscle stiffness, neck pain, others Integumetry: denies: bruises, change in color, change in hair/nails, dryness, laceration, lesions, lumps, rash, wounds, others Allergic/Immunocompromised: denies: Difficulty Healing, Frequent Infections, Hives, Itching, others Hematologic/Lymphatic: denies: anemia, blood clots, easy bleeding, easy bruising, swollen glands, others Endocrine: denies: excessive hunger, excessive sweating, excessive thirst, excessive urination, flushing, intolerance to cold, intolerance to heat, unexplained weight gain, unexplained weight loss, others Psychiatric: denies: anxiety, bipolar disorder, depression, hopeless, panic disorder, schizophrenia, sleepless, suicidal, others All Other Systems: Reviewed and Negative Physical Exam General Appearance: Moderate Distress, Normal HEENT: Normal ENT Inspection, Pharynx Normal, TMs Normal Neck: Full Range of Motion, Non-Tender, Normal, Normal Inspection Respiratory: Chest Non-Tender, Lungs Clear, No Accessory Muscle Use, No Respiratory Distress, Normal Breath Sounds Cardiovascular: No Edema, No JVD, No Murmur, No Gallop, Normal Peripheral Pulses, Regular Rate/Rhythm Breast Exam: Deferred Gastrointestinal: Distended, No Organomegaly, No Pulsatile Mass, Normal Bowel Sounds, Soft Genitalia: Deferred Pelvic: Deferred Rectal: Deferred Extremities: No calf tenderness, Normal capillary refill, Normal inspection, Normal range of motion, Non-tender, No pedal edema Musculoskeletal : Apperance: Normal Neurologic: Alert, diploma pharmacy technician II-XII nml as Tested, No Motor Deficits, Normal Affect, Normal Mood, No Sensory Deficits Cerebellar Function: NOT DONE Reflexes: NOT DONE Skin: Dry, Normal Color, Warm Peripheral Pulses: 3+ Radial (R), 3+ Radial (L) Lymphatic: No Adenopathy Was a procedure done? Was a procedure done?: No Differential Dx Considerations may include: Colitis Electrolyte imbalance X-Ray, Labs, Meds, VS Vital Signs Date Time Temp Pulse Resp B/P (MAP) Pulse Ox O2 Delivery O2 Flow Rate FiO2 07/08/25 14:35 98.6 82 17 123/66 (85) 96 98.6 07/08/25 14:35 82 17 96 Room Air 07/08/25 12:25 98.2 87 18 157/111 93 98.2 Lab Test 07/08/25 12:46 Range/Units White Blood Count 5.0 4.4-10.8 10^3/uL Red Blood Count 7.67 H 4.5-5.90 10^6/uL Hemoglobin 20.4 H 13.5-17.5 g/dL Hematocrit 65.2 H 41.0-53.0 % Mean Corpuscular Volume 85.0 80.0-100.0 fL Mean Corpuscular Hemoglobin 26.6 L 28.0-32.0 pg Mean Corpuscular Hemoglobin Concent 31.3 L 32.0-36.0 g/dL Red Cell Distribution Width 18.3 H 11.8-14.3 % Platelet Count 160 140-450 10^3/uL Mean Platelet Volume 9.1 6.9-10.8 fL Neutrophils (%) (Auto) 70.7 37.0-80.0 % Lymphocytes (%) (Auto) 17.8 10.0-50.0 % Monocytes (%) (Auto) 9.4 0.0-12.0 % Eosinophils (%) (Auto) 1.8 0.0-7.0 % Basophils (%) (Auto) 0.3 0.0-2.0 % Neutrophils # (Auto) 3.5 1.6-8.6 10 ^3/uL Lymphocytes # (Auto) 0.9 0.4-5.4 10 ^3/uL Monocytes # (Auto) 0.5 0-1.3 10 ^3/uL Eosinophils # (Auto) 0.1 0-0.8 10 ^3/uL Basophils # (Auto) 0 0-0.2 10 ^3/uL Nucleated Red Blood Cells 0.8 % Sodium Level 136 136-145 mmol/L Potassium Level 4.2 3.5-5.1 mmol/L Chloride Level 103 98-107 mmol/L Carbon Dioxide Level 27 20-31 mmol/L Anion Gap 6 5-15 Blood Urea Nitrogen 11 9-23 mg/dL Creatinine 0.89 0.700-1.30 mg/dL Glomerular Filtration Rate Calc 111 >90 mL/min BUN/Creatinine Ratio 12.4 10.0-20.0 Serum Glucose 147 H 74-106 mg/dL Calcium Level 8.4 L 8.7-10.4 mg/dL Current Medications Medications (Trade) Dose Ordered Sig/Ralph Route Start Time Stop Time Status Last Admin Sodium Chloride 1,000 ml @ 1,000 mls/hr Q1H ONCE IVB 07/08/25 14:00 07/08/25 14:59 07/08/25 14:29 Sodium Chloride 1,000 ml @ 150 mls/hr Q6H40M ONCE IV 07/08/25 14:00 07/08/25 20:39 07/08/25 14:29 Patient alert. Complaining of abdominal pain. Abdomen is distended. Vitals stable. No acute abdomen. Vitals stable. WBC within normal limits. Hemoglobin elevated. Possible dehydration. Establish intravenous access. Was given fluids. CT scan of the abdomen reviewed does not show any acute changes. No acute process. No leg swelling. No shortness a breath. Spoke with [facility] physician. Explained to the patient. Continue monitoring. Was told to follow up with his primary care physician. Was told to come back if there is any problem. Time of 1ST Reevaluation: 12:43 Reevaluation 1ST: Improved Patient Education/Counseling: Diagnosis, Treatment, Need For Follow Up Family Education/Counseling: No Family Present SEPSIS Sepsis Screen Physician Orders Ct Ab Pel Wo Con-No Oral Or Iv (07/08/25 12:30) Sodium Chloride 0.9% (07/08/25 14:00) Sodium Chloride 0.9% (07/08/25 14:00) Vital Signs Date Time Temp Pulse Resp B/P (MAP) Pulse Ox O2 Delivery O2 Flow Rate FiO2 07/08/25 14:35 98.6 82 17 123/66 (85) 96 98.6 07/08/25 14:35 82 17 96 Room Air 07/08/25 12:25 98.2 87 18 157/111 93 98.2 Laboratory Tests Test 07/08/25 12:46 White Blood Count 5.0 10^3/uL (4.4-10.8) Medications Medications Dose Ordered Sig/Ralph Route Start Time Stop Time Status Last Admin Dose Admin Sodium Chloride 1,000 ml @ 150 mls/hr Q6H40M ONCE IV 07/08/25 14:00 07/08/25 20:39 07/08/25 14:29 Sodium Chloride 1,000 ml @ 1,000 mls/hr Q1H ONCE IVB 07/08/25 14:00 07/08/25 14:59 07/08/25 14:29 Departure 1 Departure Time of Disposition: 12:42 Impression: Primary Impression: Uncontrolled diabetes mellitus Qualified Codes: E13.65 - Other specified diabetes mellitus with hyperglycemia Additional Impressions: Acute abdominal pain Gastroenteritis Disposition: HOME / SELF CARE / HOMELESS Condition: Good Discharged With: Self Critical Care Note Critical Care Time?: No Stability Stability form required: No Heart Score Heart Score: Heart Score Response (Comments) Value History N/A 0 EKG N/A 0 Age N/A 0 Risk Factors N/A 0 Troponin N/A 0 Total 0 I personally scribed for DARRON HOFFMANN MD ([email or web address]) on 07/08/25 at 12:34. Electronically submitted by Brandan Girard ([email or web address]). DARRON HOFFMANN MD Jul 08, 2025 12:34
[2025-07-08 12:58] LABS: Hemoglobin 20.4 g/dL (13.5-17.5); Mean Corpuscular Hemoglobin 26.6 pg (28.0-32.0); Mean Corpuscular Volume 85.0 fL (80.0-100.0); Nucleated Red Blood Cells % 0.8 %
[2025-07-08 13:04] LABS: Hematocrit 65.2 % (41.0-53.0)
[2025-07-08 13:07] LABS: Anion Gap 6 (5-15); Carbon Dioxide 27 mmol/L (20-31); Chloride 103 mmol/L (98-107); Potassium 4.2 mmol/L (3.5-5.1); Sodium 136 mmol/L (136-145)
[2025-07-08 13:08] LABS: Calcium 8.4 mg/dL (8.7-10.4)
[2025-07-08 13:13] LABS: BUN/Creatinine Ratio 12.4 (10.0-20.0); Blood Urea Nitrogen 11 mg/dL (9-23)
[2025-07-08 13:28] LABS: Glucose 147 mg/dL (74-106)
--- NOTE | 2025-07-08 14:05 | DVH ---
Exam: CT CT AB PEL WO CON-NO ORAL OR IV History: flankpain Comparison Study: CT CT AB PEL WO CON-NO ORAL OR IV on DOS: 04/22/23 TECHNIQUE: Multidetector CT of the abdomen was performed from lung bases to pubic symphysis. Imaging was performed without IV contrast. Axial, coronal and sagittal multiplanar reformats were obtained fr om the axial data set by the technologist. Radiation Dose Information: CT Dose: CTDI volume is 24.45 mGy. Dose-length product is 1647.51 mGy*cm FINDINGS: Evaluation of solid organs is limited due to lack of intravenous contrast use. Findings: Lung Bases: No acute or significant lung base finding. Normal heart size. No pleural or pericardial effusion. Liver: The liver is normal in size. No focal lesions. Gallbladder and Biliary Tree: Unremarkable Spleen: Unremarkable Pancreas: The pancreas is grossly normal in appearance. Adrenal Glands: Unremarkable Kidneys: Kidneys are grossly normal without calculi or hydronephrosis. Bladder: No bladder calculi Bowel: The stomach is grossly normal in appearance. Small bowel and colon are normal in caliber and d istribution. The appendix is not visualized; however, no secondary findings of acute appendicitis id entified. Ascites: Absent Lymphadenopathy: No mesenteric, retroperitoneal or periportal lymphadenopathy. Abdominal Wall and Mesentery: Unremarkable. Vasculature: The visualized abdominal aorta is normal in size and caliber. Evaluation of abdominal a nd pelvic vessels is limited due to lack of intravenous contrast. Pelvic Organs: Unremarkable Musculoskeletal: No aggressive focal bony lesions, acute fractures or dislocation. Soft tissues: Unremarkable IMPRESSION: 1. No nephrolithiasis or hydronephrosis 2. No ureteral calculi 3. No bladder calculi Radiation optimization: All CT scans at this facility use at least one of these dose optimization te chniques: automated exposure control mA and/or kV adjustment per patient size (includes targeted exa ms where dose is matched to clinical indication) or iterative reconstruction.
[2025-07-08] MEDS: SODIUM CHLORIDE 0.9% 1,000 ML IVB ONE (14:29)
[2025-07-08] MEDS: SODIUM CHLORIDE 0.9% 1,000 ML IV ONE (14:29)
[2025-07-08 14:35] VITALS: BP 123/66; PULSE 82; RESP 17; TEMP 98.6; O2SAT 96
== END 2025-07-08 15:31 | disposition home or self-care (01) ==
LOC: ER 12:22 → EDBD 12:22 → ER 15:31
DX: E11.65 Type 2 diabetes mellitus with hyperglycemia (principal); K52.9 Noninfective gastroenteritis and colitis, unspecified; I11.0 Hypertensive heart disease with heart failure; I50.9 Heart failure, unspecified; Z79.1 Long term (current) use of non-steroidal anti-inflammatories (NSAID); Z79.82 Long term (current) use of aspirin; Z79.899 Other long term (current) drug therapy
CPT/HCPCS: 36415; 74176; 80048; 85025; 96360; 99284; J7030

== ENCOUNTER 2025-10-05 20:13 | Inpatient (IN) | payer OTHER ==
[~2025-10-05] VITALS: Ht 165.1 cm; Wt 125.8 kg
--- NOTE | 2025-10-05 20:51 | ED.PDOC ---
SOB-HPI HPI Comments HPI: Yves 40 y.o male presents to the ED for a chief complaint of a productive cough associated with SOB x 2 weeks. Patient reports taking OTC cough medication but had no symptom relief. Patient states as a result of his cough. he developed right sided abdominal wall pain that only presents with the cough itself. Patient has had these symptoms one year ago, states cough was severe in which he mentions abdomen ruptured (unsure of specificity). Patient denies any nausea, vomiting, diarrhea, or chest pain. He has not been on any antibiotics. Initial Vitals BP: 118/88 HR: 135 RR: 20 O2 Sat: 92% RA Temp: 97.8 F Past Medical history: CHF, DM, HTN, HLD, sleep apnea Past Surgical history: DENIES Medications: lasix Social History: Denies smoking, ETOH, and drug use. Allergies: NKDA dianna pillai: HPI: Poor Historian. Past Medical History: Past Surgical History: REVIEW OF SYSTEMS: CONSTITUTIONAL: Denies acute: fever, diaphoresis, chills, generalized weakness. HEAD: Denies acute: headache, photophobia Eyes: Denies acute: Double vision, vision loss, eye pain, eye discharge. EARS: Denies acute: tinnitus, hearing loss, ear discharge, ear pain, THROAT: Denies acute: sore throat, swelling, difficulty swallowing , pain with swallowing, change in voice. NECK: Denies acute: neck pain, neck swelling, stiff neck. HEART: Denies acute : chest pain, palpitations, LUNGS: Denies acute: , wheezing, , hemoptysis ABDOMEN: Denies acute: Nausea, Vomiting, diarrhea, melena , hematemesis, hematochezia SKIN: Denies acute: rash, redness, lesions, itchiness. EXTREMITIES: Denies acute: calf pain, numbness, tingling, weakness, denies pain in extremity. Denies acute: Low back pain. Neuro: Denies acute: focal neurological deficit, motor or sensory focal neurological deficit, tremors, seizure like activity, confusion, dizziness, change in mental status, loss of bowel or bladder function, cauda equina like symptoms. : Denies acute: dysuria, hematuria, flank pain, increase in urinary frequency. PSYCH: Denies acute: hallucination, suicidal ideation, homicidal ideation. PHYSICAL EXAM: General: -----mild---acute distress, awake and alert. Head: normocephalic, atraumatic. No raccoon's eyes, no lepe sign. Neck: supple, trachea is midline, no swelling. Throat: Normal phonation. Eyes:, no erythema, no purulent discharge, no proptosis, no icterus. Heart: regular tachycardic, no significant murmur appreciated. Lungs: no apparent respiratory distress, Able to speak in full sentences. No wheezing, no rhonchi, no crackles. No stridors Clear to auscultation bilaterally. Abdomen: Right-sided abdominal wall tender to palpation, non distended, soft, no guarding, no rebound, + bowel sounds. Morbidly obese Neuro: Awake, Alert, oriented to name, self, situation, follows commands GCS=15. Speech is normal. Skin: no petechia, no purpura, no cyanosis, non-pale, not jaundice. Lower extremities: --1/4 bilateral- Pitting edema no deformity, no focal swelling, no calf TTP. Makes eye contact. moves all four extremities. Face: no apparent facial droop. Ambulating in the ED independently. ED COURSE: DISCLAIMER: This medical document was created using an electronic medical record system with voice recognition software and computerized dictation system. Although this document has been carefully reviewed, there might still be some phonetic and typographical errors. Occasional wrong-word or "sound-alike" substitutions may have occurred due to the inherent limitations of voice recognition software. These areas are purely typographical due to imperfections of the software programs and do not reflect any compromise in the patient's medical care. Please read the chart carefully and recognize, using context, where these substitutions have occurred. Chief Complaint: Abdominal Pain Time Seen by MD: 20:43 Primary Care Provider: PRECIADO Reviewed notes: Medications, Allergies Information Source: Patient Mode of Arrival: Ambulatory Severity: Moderate Timing: Weeks Past Medical History PAST MEDICAL HISTORY: Anxiety, CHF, DM, High Lipids, HTN Surgical History: Denies all surgeries Family History Family History: Reviewed,noncontributory to illness, Family hx of Cancer, Family hx of heart hever Social History Smoker: Quit Less Than 1 Year Alcohol: Denies ETOH Use Drugs: Denies Drug Use Lives In: Home Was a procedure done? Was a procedure done?: No Differential Dx Differential Diagnosis: Bronchitis, CHF, COPD, Pneumonia, Respiratory Distress, URI, Other (DDx include ACS, unstable angina, anxiety, PE, pneumothroax, neoplasm, cardiac ischemia, COPD, asthma, CHF, pleural effusion, tobacco abuse, pneumonia, hypoxia, hypercapnia, anemia., infection/sepsis., pulmonary edema. Asthma, Cardiac tamponade, infection.) X-Ray, Labs, Meds, VS Vital Signs Date Time Temp Pulse Resp B/P (MAP) Pulse Ox O2 Delivery O2 Flow Rate FiO2 10/05/25 23:55 134 10/05/25 23:27 136/97 10/05/25 23:10 20 93 Room Air* 0 21 10/05/25 23:08 97.8 134 20 136/97 (110) 93 97.8 10/05/25 22:34 133 10/05/25 20:19 97.8 135 20 118/88 92 97.8 Lab Test 10/05/25 23:35 10/05/25 20:43 Range/Units Urine Color Yellow Yellow Urine Clarity Clear Clear Urine pH 7.0 5.0-9.0 Urine Specific Bevier 1.028 1.001-1.035 Urine Protein 2+ H Negative Urine Ketones Negative Negative Urine Blood Negative Negative /uL Urine Nitrite Negative Negative Urine Bilirubin Negative Negative Urine Urobilinogen 12 H Negative mg/dL Urine Leukocyte Esterase Negative Negative /uL Urine RBC 3 0 - 3 /hpf Urine Microscopic WBC 1 0-3 /HPF Urine Squamous Epithelial Cells None seen <5 /hpf Urine Bacteria None seen None Seen /hpf Urine Glucose Normal Normal mg/dL Urine Opiates Screen Neg NEGATIVE Urine Fentanyl Screen Neg NEGATIVE Urine Barbiturates Screen Neg NEGATIVE Urine Phencyclidine Screen Neg NEGATIVE Urine Amphetamines Screen Neg NEGATIVE Urine Benzodiazepines Screen Neg NEGATIVE Urine Cocaine Screen Neg NEGATIVE Urine Cannabinoids Screen Neg NEGATIVE White Blood Count 6.3 4.4-10.8 10^3/uL Red Blood Count 6.59 H 4.5-5.90 10^6/uL Hemoglobin 19.3 H 13.5-17.5 g/dL Hematocrit 59.0 H 41.0-53.0 % Mean Corpuscular Volume 89.5 80.0-100.0 fL Mean Corpuscular Hemoglobin 29.3 28.0-32.0 pg Mean Corpuscular Hemoglobin Concent 32.7 32.0-36.0 g/dL Red Cell Distribution Width 20.7 H 11.8-14.3 % Platelet Count 139 L 140-450 10^3/uL Mean Platelet Volume 10.0 6.9-10.8 fL Neutrophils (%) (Auto) 71.4 37.0-80.0 % Lymphocytes (%) (Auto) 18.9 10.0-50.0 % Monocytes (%) (Auto) 7.9 0.0-12.0 % Eosinophils (%) (Auto) 1.3 0.0-7.0 % Basophils (%) (Auto) 0.5 0.0-2.0 % Neutrophils # (Auto) 4.5 1.6-8.6 10 ^3/uL Lymphocytes # (Auto) 1.2 0.4-5.4 10 ^3/uL Monocytes # (Auto) 0.5 0-1.3 10 ^3/uL Eosinophils # (Auto) 0.1 0-0.8 10 ^3/uL Basophils # (Auto) 0 0-0.2 10 ^3/uL Nucleated Red Blood Cells 0.3 % D-Dimer, Quantitative 0.19 0.0-0.49 mg/L FEU Sodium Level 141 136-145 mmol/L Potassium Level 4.1 3.5-5.1 mmol/L Chloride Level 103 98-107 mmol/L Carbon Dioxide Level 32 H 20-31 mmol/L Anion Gap 6 5-15 Blood Urea Nitrogen 16 9-23 mg/dL Creatinine 0.84 0.700-1.30 mg/dL Glomerular Filtration Rate Calc 113 >90 mL/min BUN/Creatinine Ratio 19.0 10.0-20.0 Serum Glucose 200 H 74-106 mg/dL Lactic Acid Level 1.1 0.4-2.0 mmol/L Calcium Level 8.7 8.7-10.4 mg/dL Magnesium Level 1.8 1.6-2.6 mg/dL Total Bilirubin 0.6 0.2-1.0 mg/dL Aspartate Amino Transferase (AST) 31 13-40 U/L Alanine Aminotransferase (ALT) 55 H 7-40 U/L Alkaline Phosphatase 131 H 46-116 U/L Troponin I High Sensitivity 30 </=54 ng/L B-Type Natriuretic Peptide 142.40 0-100 pg/mL Total Protein 5.9 5.7-8.2 g/dL Albumin 3.4 3.2-4.8 g/dL Lipase 38 12-53 U/L [facility] [id number] [place] [id number] Ph: [phone] DIAGNOSTIC IMAGING Diagnostic Imaging Report : [id number] Signed PATIENT: DIANNA SANTOS ACCT: [id number] UNIT: [id number] : 1985 LOC: ER ROOM / BED: / AGE / SEX: 40 / M ADM STATUS: REG ER SERVICE 44 ORDERING PHYSICIAN: LAMONTE ROGERS DO PROCEDURE(s): ABPL - CT AB PEL WO CON-NO ORAL OR IV REASON: Right abdominal wall pain from coughing ORDER NUMBER(s): [id number], ACCESSION NUMBER(s): [id number] EXAM: CT CT AB PEL WO CON-NO ORAL OR IV INDICATION: Right abdominal wall pain from coughing TECHNIQUE: Volumetric multidetector CT images of the abdomen and pelvis were obtained without contrast. All CT scans at this facility use dose modulation, iterative reconstruction, and/or weight based dosing when appropriate to reduce radiation dose to as low as reasonably achievable. COMPARISON: CT CT AB PEL WO CON-NO ORAL OR IV on DOS: 07/08/25 FINDINGS: [LOWER CHEST]: The partially visualized lung bases are clear without a pleural effusion. Iqaw-kc-hnazlhfr cardiomegaly. The cardiac size is normal without pericardial effusion. [LIVER]: Normal hepatic size without suspicious focal lesion. [GALLBLADDER AND BILIARY TREE]: No cholelithiasis. [SPLEEN]: Unremarkable. [PANCREAS]: Unremarkable. [ADRENAL GLANDS]: Unremarkable [KIDNEYS]: No hydronephrosis. No nephroureterolithiasis. No suspicious focal lesion. [BLADDER]: Unremarkable for the degree distention. [REPRODUCTIVE ORGANS]: Unremarkable. [BOWEL/MESENTERY]: Stomach is normal. Lvwr-zp-wuyhqbqj stool burden. No CT evidence of bowel obstruction. [ASCITES]: Absent [LYMPHADENOPATHY]: No pathologically enlarged lymph nodes by CT size criteria [VASCULATURE]: No aneurysmal dilatation. [ABDOMINAL WALL]: Significant anterior lower abdominal wall subcutaneous adipose tissue edema which may be compatible with panniculitis correlate for cellulitis. No abnormal drainable fluid collection along the anterior abdominal wall. [MUSCULOSKELETAL]: Prior nonunited right posterior lateral 10th rib fracture which may be the source of pain in question. Multifocal degenerative change of the visualized spine. IMPRESSION: 1. Significant anterior lower abdominal wall subcutaneous adipose tissue edema which may be compatible with panniculitis correlate for cellulitis. 2. No abnormal drainable fluid collection along the anterior abdominal wall. 3. Prior nonunited right posterior lateral 10th rib fracture which may be the source of pain in question. ATED BY: DERRICK DE GUZMAN MD DICTATED DATE/TIME: 10/05/252145 SIGNED BY: DERRICK DE GUZMAN MD SIGNED DATE/TIME: 10/05/252145 CC: [place] [address] Ph: [phone] DIAGNOSTIC IMAGING Diagnostic Imaging Report : [id number] Signed PATIENT: DIANNA SANTOS ACCT: [id number] UNIT: [id number] : 1985 LOC: ER ROOM / BED: / AGE / SEX: 40 / M ADM STATUS: REG ER SERVICE 32 ORDERING PHYSICIAN: LAMONTE ROGERS DO PROCEDURE(s): CXRP - CHEST PORTABLE REASON: cough ORDER NUMBER(s): [id number], ACCESSION NUMBER(s): [id number] EXAM: XY CHEST PORTABLE HISTORY: cough TECHNIQUE: 1 view of the chest COMPARISON: XY CHEST XRAY 1 VIEW on DOS: 06/23/25 FINDINGS/IMPRESSION: LUNGS: No pleural effusion, consolidation, or pneumothorax. Pulmonary vascular congestion MEDIASTINUM: Mild cardiomegaly BONES: No acute osseous abnormality. OTHER: None. ATED BY: DERRICK DE GUZMAN MD DICTATED DATE/TIME: 10/05/252119 SIGNED BY: DERRICK DE GUZMAN MD SIGNED DATE/TIME: 10/05/252119 CC: Time of 1ST Reevaluation: 20:47 Reevaluation 1ST: Unchanged Time of 2ND Reevaluation: 00:04 (The case was discussed with the admitting team (HPI, physical exam, labs and diagnostic tests that were available at the time of disposition, ED course, treatment plan) on the phone. They agreed to admit the patient to their service and assume care of this patient from this point forward. --- mehul. ) Patient Education/Counseling: Diagnosis, Treatment Family Education/Counseling: No Family Present Comments MDM: patient presented with the above HPI.-cough and dyspnea-----workup was ini tiated. patient was found with the above mentioned diagnosis. the following medications were ordered: please refer to order lists of meds and tests obtained by myself Dr. Rogers. Patient ED course and VS have been stabilized. Patient has been reassessed in the ED and remained in a stable condition. Pertinent incidental findings were discussed with the patient and/or family. Patient/family voices understanding and is agreeable with plan. Patient has been observed in the ED adequate length of time to insure improvement/stability. Escalation of care considered: Consideration of escalation to observation or admission Patient was ADMITTED to the medicine team for further evaluation and treatment of their presentation. All the reports of any imaging studies that were ordered by myself were reviewed by myself. Departure 1 Departure Time of Disposition: 22:46 Impression: Primary Impression: Abdominal wall pain Additional Impressions: Atrial fibrillation with RVR URI (upper respiratory infection) CHF exacerbation Disposition: ADMITTED INPATIENT Admit to: Tele Condition: Guarded Additional Instructions: [place] [address] Ph: [phone] DIAGNOSTIC IMAGING Diagnostic Imaging Report : [id number] Signed PATIENT: DIANNA SANTOS ACCT: [id number] UNIT: [id number] : 1985 LOC: ER ROOM / BED: / AGE / SEX: 40 / M ADM STATUS: REG ER SERVICE 44 ORDERING PHYSICIAN: LAMONTE ROGERS DO PROCEDURE(s): ABPL - CT AB PEL WO CON-NO ORAL OR IV REASON: Right abdominal wall pain from coughing ORDER NUMBER(s): [id number], ACCESSION NUMBER(s): [id number] EXAM: CT CT AB PEL WO CON-NO ORAL OR IV INDICATION: Right abdominal wall pain from coughing TECHNIQUE: Volumetric multidetector CT images of the abdomen and pelvis were ob tained without contrast. All CT scans at this facility use dose modulation, iterative reconstruction, and/or weight based dosing when appropriate to reduce radiation dose to as low as reasonably achievable. COMPARISON: CT CT AB PEL WO CON-NO ORAL OR IV on DOS: 07/08/25 FINDINGS: [LOWER CHEST]: The partially visualized lung bases are clear without a pleural effusion. Zhvw-wl-hvgvbphi cardiomegaly. The cardiac size is normal without pericardial effusion. [LIVER]: Normal hepatic size without suspicious focal lesion. [GALLBLADDER AND BILIARY TREE]: No cholelithiasis. [SPLEEN]: Unremarkable. [PANCREAS]: Unremarkable. [ADRENAL GLANDS]: Unremarkable [KIDNEYS]: No hydronephrosis. No nephroureterolithiasis. No suspicious focal lesion. [BLADDER]: Unremarkable for the degree distention. [REPRODUCTIVE ORGANS]: Unremarkable. [BOWEL/MESENTERY]: Stomach is normal. Ithe-gu-vxufpukj stool burden. No CT evidence of bowel obstruction. [ASCITES]: Absent [LYMPHADENOPATHY]: No pathologically enlarged lymph nodes by CT size criteria [VASCULATURE]: No aneurysmal dilatation. [ABDOMINAL WALL]: Significant anterior lower abdominal wall subcutaneous adipose tissue edema which may be compatible with panniculitis correlate for cellulitis. No abnormal drainable fluid collection along the anterior abdominal wall. [MUSCULOSKELETAL]: Prior nonunited right posterior lateral 10th rib fracture which may be the source of pain in question. Multifocal degenerative change of the visualized spine. IMPRESSION: 1. Significant anterior lower abdominal wall subcutaneous adipose tissue edema which may be compatible with panniculitis correlate for cellulitis. 2. No abnormal drainable fluid collection along the anterior abdominal wall. 3. Prior nonunited right posterior lateral 10th rib fracture which may be the source of pain in question. ATED BY: DERRICK DE GUZMAN MD DICTATED DATE/TIME: 10/05/252145 SIGNED BY: DERRICK DE GUZMAN MD SIGNED DATE/TIME: 10/05/252145 CC: e-Prescriptions Atorvastatin Calcium (Lipitor) 40 Mg Tab 1 TAB PO DAILY, #30 TAB 3 Refills Prov: FLAQUITO BYNUM MD 10/08/25 Furosemide (Lasix) 40 Mg Tab 40 MG PO BID for 30 Days, #60 TAB 2 Refills Prov: FLAQUITO BYNUM MD 10/08/25 Spironolactone (Aldactone) 50 Mg Tab 1 TAB PO DAILY, #30 TAB 3 Refills Prov: FLAQUITO BYNUM MD 10/08/25 Dapagliflozin Propanediol (Farxiga) 10 Mg Tab 10 MG PO DAILY for 30 Days, #30 TAB 2 Refills Prov: FLAQUITO BYNUM MD 10/08/25 Carvedilol (COREG) 3.125 Mg Tab 3.125 MG OR BID for 60 Days, #120 TAB 3 Refills Prov: FLAQUITO BYNUM MD 10/08/25 Apixaban Base (ELIQUIS) 5 Mg Tab 5 MG PO BID, #60 TAB 2 Refills Prov: FLAQUITO BYNUM MD 10/08/25 Amiodarone Hcl (Amiodarone Hcl) 200 Mg Tab 1 TAB PO BID for 30 Days, #60 TAB 2 Refills Prov: FLAQUITO BYNUM MD 10/08/25 Discharged With: Self Critical Care Note Critical Care Time?: Yes (45 min-critical care time only) Critical care comment: Due to a high probability of clinically significant, life threatening deterioration, the patient required my highest level of preparedness to intervene emergently and I personally spent this critical care time directly and personally managing the patient. This critical care time included obtaining a history; examining the patient; pulse oximetry; ordering and review of studies; arranging urgent treatment with development of a management plan; evaluation of patient's response to treatment; frequent reassessment; and, discussions with other providers. This critical care time was performed to assess and manage the high probability of imminent, life-threatening deterioration that could result in multi-organ failure. It was exclusive of separately billable procedures and treating other patients and teaching time. Please see my other sections and the rest of the note for further information on patient assessment and treatment. Heart Score Heart Score: Heart Score Response (Comments) Value History N/A 0 EKG N/A 0 Age N/A 0 Risk Factors N/A 0 Troponin N/A 0 Total 0 I personally scribed for LAMONTE ROGERS DO ([email or web address]) on 10/05/25 at 20:51. Electronically submitted by Juliann Wilson ([facility]). I personally scribed for LAMONTE ROGERS DO (DVFARMI) on 10/05/25 at 21:50. Electronically submitted by Juliann Wilson ([facility]). I personally scribed for LAMONTE ROGERS DO ([facility]) on 10/05/25 at 21:51. Electronically submitted by Juliann Wilson ([facility]). LAMONTE ROGERS DO Oct 05, 2025 20:51
--- NOTE | 2025-10-05 21:22 | DVH ---
EXAM: XY CHEST PORTABLE HISTORY: cough TECHNIQUE: 1 view of the chest COMPARISON: XY CHEST XRAY 1 VIEW on DOS: 06/23/25 FINDINGS/IMPRESSION: LUNGS: No pleural effusion, consolidation, or pneumothorax. Pulmonary vascular congestion MEDIASTINUM: Mild cardiomegaly BONES: No acute osseous abnormality. OTHER: None.
[2025-10-05 21:25] LABS: Hemoglobin 19.3 g/dL (13.5-17.5)
[2025-10-05 21:27] LABS: Mean Corpuscular Hemoglobin 29.3 pg (28.0-32.0); Mean Corpuscular Volume 89.5 fL (80.0-100.0); Nucleated Red Blood Cells % 0.3 %
[2025-10-05 21:32] LABS: Hematocrit 59.0 % (41.0-53.0)
[2025-10-05 21:37] LABS: Albumin 3.4 g/dL (3.2-4.8); Anion Gap 6 (5-15); BUN/Creatinine Ratio 19.0 (10.0-20.0); Blood Urea Nitrogen 16 mg/dL (9-23); Chloride 103 mmol/L (98-107); Lipase 38 U/L (12-53); Potassium 4.1 mmol/L (3.5-5.1); Sodium 141 mmol/L (136-145); Total Protein 5.9 g/dL (5.7-8.2)
[2025-10-05 21:38] LABS: Bilirubin, Total 0.6 mg/dL (0.2-1.0)
[2025-10-05 21:41] LABS: Alanine Aminotransferase 55 U/L (7-40); Alkaline Phosphatase 131 U/L (46-116); Calcium 8.7 mg/dL (8.7-10.4); Carbon Dioxide 32 mmol/L (20-31); Glucose 200 mg/dL (74-106)
--- NOTE | 2025-10-05 21:48 | DVH ---
EXAM: CT CT AB PEL WO CON-NO ORAL OR IV INDICATION: Right abdominal wall pain from coughing TECHNIQUE: Volumetric multidetector CT images of the abdomen and pelvis were obtained without contrast. All CT scans at this facility use dose modulation, iterative reconstruction, and/or weight based dosing when appropriate to reduce radiation dose to as low as reasonably achievable. COMPARISON: CT CT AB PEL WO CON-NO ORAL OR IV on DOS: 07/08/25 FINDINGS: [LOWER CHEST]: The partially visualized lung bases are clear without a pleural effusion. Yupt-cl-gmbrukbh cardiomegaly. The cardiac size is normal without pericardial effusion. [LIVER]: Normal hepatic size without suspicious focal lesion. [GALLBLADDER AND BILIARY TREE]: No cholelithiasis. [SPLEEN]: Unremarkable. [PANCREAS]: Unremarkable. [ADRENAL GLANDS]: Unremarkable [KIDNEYS]: No hydronephrosis. No nephroureterolithiasis. No suspicious focal lesion. [BLADDER]: Unremarkable for the degree distention. [REPRODUCTIVE ORGANS]: Unremarkable. [BOWEL/MESENTERY]: Stomach is normal. Nqlh-qt-astjaaov stool burden. No CT evidence of bowel obstruction. [ASCITES]: Absent [LYMPHADENOPATHY]: No pathologically enlarged lymph nodes by CT size criteria [VASCULATURE]: No aneurysmal dilatation. [ABDOMINAL WALL]: Significant anterior lower abdominal wall subcutaneous adipose tissue edema which may be compatible with panniculitis correlate for cellulitis. No abnormal drainable fluid collection along the anterior abdominal wall. [MUSCULOSKELETAL]: Prior nonunited right posterior lateral 10th rib fracture which may be the source of pain in question. Multifocal degenerative change of the visualized spine. IMPRESSION: 1. Significant anterior lower abdominal wall subcutaneous adipose tissue edema which may be compatible with panniculitis correlate for cellulitis. 2. No abnormal drainable fluid collection along the anterior abdominal wall. 3. Prior nonunited right posterior lateral 10th rib fracture which may be the source of pain in question.
--- NOTE | 2025-10-05 22:37 | ECG ---
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
[2025-10-05] MEDS: FUROSEMIDE 40 MG/4 ML VIAL IV ONE (23:27)
[2025-10-05 23:46] LABS: Urine Protein, UAD 2+ (Negative)
[2025-10-06] VITALS (12 sets, daily range): BP systolic 113–135; BP diastolic 85–104; PULSE 65–144; RESP 18–24; TEMP 96.4–97.8; O2SAT 92–99
[2025-10-06 00:13] LABS: Amphetamine Screen, Urine Neg (NEGATIVE); Barbiturate Scree,Urine Neg (NEGATIVE); Benzodiazephine Screen, Urine Neg (NEGATIVE); Cannabinoid Screen, Urine Neg (NEGATIVE); Cocaine Screen, Urine Neg (NEGATIVE); Opiate Scree,Urine Neg (NEGATIVE); Phencyclidine Screen, Urine Neg (NEGATIVE)
[2025-10-06] MEDS ORDERED: DEXTROSE (50%) 50ML SYRG IV PRN (00:30)
[2025-10-06] MEDS ORDERED: NITROGLYCERIN 0.4 MG SL TAB SL PRN (00:30)
[2025-10-06] MEDS ORDERED: MORPHINE SULFATE INJ 2 MG/ml SYRG IV PRN (00:30)
--- NOTE | 2025-10-06 00:54 | DVHHP2 ---
Admitting Diagnosis: CHF exacerbation, New onset of Afib History of Present Illness HPI 40 y.o. male with CHF, DM, morbid obesity arrived to the ER c/o SOB with persistent productive cough for the past 2 weeks. The patient stated that his cough causes right abdominal pain and a similar previous episode of cough a year ago was so severe that it caused abdominal muscle trauma. Patient takes Lasix but still has b/l leg edema. CT showed lower abdominal wall edema/cellulitis. Patient denies h/o Afib but according to his medical records, he was admitted in 2022 with tachycardia that was later diagnose as Atrial flutter with rapid rate. He underwent cardioversion at that time that restored his NSR. Home Meds Active Scripts Pantoprazole Sodium Sesquihydr (Protonix) 40 Mg Tab, 40 MG PO DAILY for 5 Days, #5 TAB Prov:DARRON HOFFMANN MD 10/11/24 Baclofen (Baclofen) 10 Mg Tab, 10 MG PO BID, #20 TAB Prov:ARGENTINA TAVARES 10/07/24 Ibuprofen (Ibuprofen) 800 Mg Tab, 1 TAB PO TID, #30 TAB Prov:ARGENTINA TAVARES 10/07/24 Metoprolol Tartrate (Lopressor) 25 Mg Tb, 25 MG PO BID, #60 TAB Prov:YUE MANRIQUE MD 07/14/23 Apixaban Base (ELIQUIS) 5 Mg Tab, 5 MG PO BID, #60 TAB Prov:YUE MANRIQUE MD 07/14/23 Aspirin (Aspirin Low Strength) 81 Mg Chw, 81 MG PO DAILY, #30 TAB.CHEW Prov:YUE MANRIQUE MD 07/14/23 Amiodarone Hcl (Amiodarone Hcl) 200 Mg Tab, 1 TAB PO BID for 30 Days, #60 TAB 0 Refills Prov:YUE MANRIQUE MD 07/14/23 Hydrocodone-Acetaminophen (Hydrocodone Bitartrate/AC 5-325 mg) 1 Tab Tab, 1 TAB PO Q6HP PRN, #20 TAB Prov:DEIDRE CORTES 12/06/22 Acetaminophen W/ Codeine (Tylenol W/Cod #3) 1 Tab Tb, 1 TAB PO QIDP, #10 TAB 0 Refills Prov:YESSI TOUSSAINT 5/9/22 Cyclobenzaprine Hcl (Cyclobenzaprine Hcl) 5 Mg Tab, 1 TAB PO QPM PRN, #14 TAB 0 Refills Prov:YESSI TOUSSAINT 02/23/22 Atorvastatin Calcium (Lipitor) 40 Mg Tab, 1 TAB PO DAILY, #30 TAB Prov:CLARISSA CASTRO MD 02/26/21 Enalapril Maleate (Vasotec) 5 Mg Tab, 1 TAB PO DAILY, #30 TAB Prov:CLARISSA CASTRO MD 02/26/21 Cholecalciferol (VITAMIN D3) 5,000 Unit Tab, 5000 UNIT PO DAILY, #30 TAB Prov:CLARISSA CASTRO MD 02/26/21 Furosemide (Lasix) 40 Mg Tab, 40 MG PO DAILY for 30 Days, #30 TAB Prov:CLARISSA CASTRO MD 02/26/21 Past Medical History Cardiac: CHF, HTN, Hyperlipidemia Endocrine: NIDDM Patient Family History: Family history: Cardiovascular disease G8 MOTHER (CHF) Family history: Diabetes mellitus G8 MOTHER Family history: Hypercholesterolemia (situation) G8 MOTHER Family history: Hypertension G8 FATHER Pacemaker G8 MOTHER Review of Systems Pulmonary/Respiratory: Dyspnea, Cough Cardiovascular: Palpitations, Edema H&P Exam Vital Signs Vital Signs Date Time Temp Pulse Resp B/P (MAP) Pulse Ox O2 Delivery O2 Flow Rate FiO2 10/05/25 23:55 134 10/05/25 23:27 136/97 10/05/25 23:10 20 93 Room Air* 0 21 10/05/25 23:08 97.8 97.8 General Appeara: Obese Head Exam: Normal inspection Neck Exam: Normal inspection Eye Exam: bilateral eye PERRL, bilateral eye EOMI Pulmonary/Respiratory: Crackles Cardiovascular/Chest: Tachycardia Abdominal Exam: Normal bowel sounds Legs: bilateral leg swelling Ankle Exam: bilateral ankle Swelling Foot: bilateral foot swelling Neuro/Mental St: Alert, Oriented SEPSIS Sepsis Screen Date sepsis recognized/suspect: Oct 05, 2025 Time Sepsis recognized/suspect: 2307 Recent Procedure: No On Antibiotic Therapy: No Respiratory Rate >20: No Heart Rate >90: Yes Temp<36 C (96.8 F) or >38.3 C: No SBP <90 or MAP <65 mmHG: No New Acute Mental Status Change: No Is the patient on CPAP, BIPAP,: No Physician Orders Energy Efficiency Finance Manager (10/05/25 ) Chest Portable (10/05/25 20:33) Energy Efficiency Finance Manager (10/05/25 ) Ct Ab Pel Wo Con-No Oral Or Iv (10/05/25 20:45) Troponin-I Hs (10/06/25 00:30) Troponin-I Hs (10/06/25 01:30) Troponin-I Hs (10/06/25 03:30) Admit (10/06/25 00:30) * Cardiology Consult (10/06/25 00:30) Complete Blood Count (10/07/25 06:00) Comprehensive Metabolic Panel (10/07/25 06:00) Echo 2d Mode Cardiac Dop (10/06/25 00:30) Nitroglycerin Sublingual (Ntrostat Subli (10/06/25 00:30) Morphine Sulfate Injection (10/06/25 00:30) Stat Ekg For Chest Pain (10/06/25 00:30) Notify Md Of Changes From Base (10/06/25 00:30) Strategy Consultant For 24 Hours (10/06/25 00:30) Emergency Dysrhythmia Protocol (10/06/25 00:30) Rhythm Strips Once Every Shift (10/06/25 00:30) Oxygen By Nasal Cannula (10/06/25 00:30) Furosemide Injection (Lasix Injection) (10/06/25 06:00) Glucose Blood (Accu-Chek Comfort Curve T (10/06/25 07:00) Insulin R (Human) (Insulin R) (10/06/25 22:00) Insulin R (Human) (Insulin R) (10/06/25 07:00) Dextrose 50% Syringe (10/06/25 00:30) Abg W/ Co-Ox (10/06/25 00:39) Albuterol Medneb (Ventolin Medneb) (10/06/25 06:00) Ipratropium Medneb (Atrovent Medneb) (10/06/25 06:00) Vital Signs Date Time Temp Pulse Resp B/P (MAP) Pulse Ox O2 Delivery O2 Flow Rate FiO2 10/05/25 23:55 134 10/05/25 23:27 136/97 10/05/25 23:10 20 93 Room Air* 0 21 10/05/25 23:08 97.8 134 20 136/97 (110) 93 97.8 10/05/25 22:34 133 10/05/25 20:19 97.8 135 20 118/88 92 97.8 Laboratory Tests Test 10/05/25 20:43 Lactic Acid Level 1.1 mmol/L (0.4-2.0) White Blood Count 6.3 10^3/uL (4.4-10.8) Medications Medications Dose Ordered Sig/Ralph Route Start Time Stop Time Status Last Admin Dose Admin Furosemide 40 mg ONCE ONCE IV 10/05/25 21:00 10/05/25 21:01 DC 10/05/25 23:27 40 MG Labs/Xrays Labs Test 10/06/25 00:32 10/05/25 23:35 10/05/25 20:43 Range/Units Urine Color Yellow Yellow Urine Clarity Clear Clear Urine pH 7.0 5.0-9.0 Urine Specific [place] 1.028 1.001-1.035 Urine Protein 2+ H Negative Urine Ketones Negative Negative Urine Blood Negative Negative /uL Urine Nitrite Negative Negative Urine Bilirubin Negative Negative Urine Urobilinogen 12 H Negative mg/dL Urine Leukocyte Esterase Negative Negative /uL Urine RBC 3 0 - 3 /hpf Urine Microscopic WBC 1 0-3 /HPF Urine Squamous Epithelial Cells None seen <5 /hpf Urine Bacteria None seen None Seen /hpf Urine Glucose Normal Normal mg/dL Urine Opiates Screen Neg NEGATIVE Urine Fentanyl Screen Neg NEGATIVE Urine Barbiturates Screen Neg NEGATIVE Urine Phencyclidine Screen Neg NEGATIVE Urine Amphetamines Screen Neg NEGATIVE Urine Benzodiazepines Screen Neg NEGATIVE Urine Cocaine Screen Neg NEGATIVE Urine Cannabinoids Screen Neg NEGATIVE White Blood Count 6.3 4.4-10.8 10^3/uL Red Blood Count 6.59 H 4.5-5.90 10^6/uL Hemoglobin 19.3 H 13.5-17.5 g/dL Hematocrit 59.0 H 41.0-53.0 % Mean Corpuscular Volume 89.5 80.0-100.0 fL Mean Corpuscular Hemoglobin 29.3 28.0-32.0 pg Mean Corpuscular Hemoglobin Concent 32.7 32.0-36.0 g/dL Red Cell Distribution Width 20.7 H 11.8-14.3 % Platelet Count 139 L 140-450 10^3/uL Mean Platelet Volume 10.0 6.9-10.8 fL Neutrophils (%) (Auto) 71.4 37.0-80.0 % Lymphocytes (%) (Auto) 18.9 10.0-50.0 % Monocytes (%) (Auto) 7.9 0.0-12.0 % Eosinophils (%) (Auto) 1.3 0.0-7.0 % Basophils (%) (Auto) 0.5 0.0-2.0 % Neutrophils # (Auto) 4.5 1.6-8.6 10 ^3/uL Lymphocytes # (Auto) 1.2 0.4-5.4 10 ^3/uL Monocytes # (Auto) 0.5 0-1.3 10 ^3/uL Eosinophils # (Auto) 0.1 0-0.8 10 ^3/uL Basophils # (Auto) 0 0-0.2 10 ^3/uL Nucleated Red Blood Cells 0.3 % D-Dimer, Quantitative 0.19 0.0-0.49 mg/L FEU Sodium Level 141 136-145 mmol/L Potassium Level 4.1 3.5-5.1 mmol/L Chloride Level 103 98-107 mmol/L Carbon Dioxide Level 32 H 20-31 mmol/L Anion Gap 6 5-15 Blood Urea Nitrogen 16 9-23 mg/dL Creatinine 0.84 0.700-1.30 mg/dL Glomerular Filtration Rate Calc 113 >90 mL/min BUN/Creatinine Ratio 19.0 10.0-20.0 Serum Glucose 200 H 74-106 mg/dL Lactic Acid Level 1.1 0.4-2.0 mmol/L Calcium Level 8.7 8.7-10.4 mg/dL Magnesium Level 1.8 1.6-2.6 mg/dL Total Bilirubin 0.6 0.2-1.0 mg/dL Aspartate Amino Transferase (AST) 31 13-40 U/L Alanine Aminotransferase (ALT) 55 H 7-40 U/L Alkaline Phosphatase 131 H 46-116 U/L B-Type Natriuretic Peptide 142.40 0-100 pg/mL Total Protein 5.9 5.7-8.2 g/dL Albumin 3.4 3.2-4.8 g/dL Lipase 38 12-53 U/L Assessment/Plan Problem List: (1) CHF exacerbation (2) Morbid obesity (3) Uncontrolled diabetes mellitus Plan discussed with: Patient RYLEE ROA MD Oct 06, 2025 00:54
[2025-10-06] MEDS ORDERED: hydrALAZINE HCL 20 MG/ML VL IV PRN (05:45)
[2025-10-06] MEDS: FUROSEMIDE 40 MG/4 ML VIAL IV SCH ×2 (06:34→17:43)
[2025-10-06] MEDS: ACCU-CHEK COMFORT CURVE STRIP VI SCH (07:01)
[2025-10-06] MEDS: InsuLIN REG 1unit/0.01ml Soln (100units/ml) SC SCH ×2 (07:06→22:53)
[2025-10-06] MEDS: ALBUTEROL SULF 2.5 MG/0.5ML(0.5%) NEB SOLN NEB SCH (07:28)
[2025-10-06] MEDS: IPRATROPIUM BROM 0.5 MG/2.5ML INH SOL NEB SCH (07:28)
[2025-10-06] MEDS: METOPROLOL TARTRATE 1MG/1ML-5ML VIAL IV ONE (10:04)
[2025-10-06] MEDS: CEFEPIME 1GM/50ML 50 ML IV SCH ×2 (10:05→17:21)
[2025-10-06] MEDS: FUROSEMIDE 40 MG/4 ML VIAL IV ONE (10:05)
[2025-10-06] MEDS: METOPROLOL TARTRATE 25 MG TAB PO SCH (10:05)
[2025-10-06] MEDS ORDERED: HEPARIN DRIP/D5W 100UNITS/ML 250 ML IV SCH (11:45)
[2025-10-06] MEDS ORDERED: VANCOMYCIN PER PHARMACY 0 MG IV SCH (11:45)
[2025-10-06] MEDS ORDERED: HEPARIN SODIUM (PORCINE) 5000 UNITS/ML 1ML VIAL IV ONE (11:45)
[2025-10-06] MEDS: AMIODARONE BOLUS KIT 100 ML IV ONE (12:27)
--- NOTE | 2025-10-06 12:50 | DVHSR ---
APPROVED REPORT EXAM: Two-dimensional and M-mode echocardiogram with Doppler and color Doppler. Blood Pressure: 124/94 mmHg INDICATION new afib, chf exacerbation RISK FACTORS Obesity: Height: 5'2, Weight: 292 DIMENSIONS LVDd 5.2 (3.8-5.7cm) LA (2D) 3.3 (1.9-4.0cm) Aortic Root 3.1 (2.0-3.7cm) LVDs 4.3 (2.5-4.0cm) LA (MM) (1.9-4.0cm) Aortic Cusp Exc 1.8 (1.5-2.0cm) EF (%) 35.0 (55-70%) Rt. Atrium 4.6 (1.9-4.0cm) Asc. Aorta cm IVSd 1.2 (0.7-1.1cm) RV (D) (1.8-2.4cm) PWd 1.3 (0.7-1.1cm) Mitral Valve Mitral Mitral Stenosis E wave m/s MV Mean GR. 2mmHg A wave m/s MV Peak GR. 6mmHg E/A ratio 0.0 2D MVA cm2 Aortic Valve Aortic Valve Aortic Stenosis V1 0.88m/s AO Mean GR. 4mmHg V2 1.36m/s AO Peak GR. 7mmHg LVOT Diameter 2.4 (1.8-2.4cm) Doppler RANDALL 2.93cm2 Pulmonic Valve V2 0.91m/s Other Information Quality : Technically Limited Rhythm : Technically limited study due to body habitus.patient position. pt breathing heavy, laying on back Conclusion 1-Dilated left ventricle with reduced ejection fraction 30-35% in the setting tachycardia. There is golbal LV wall hypokenisis. There is a mild left ventricle hypertrophy 2-Normal right ventricle size and function 3-Right atrial dilatation 4-mild mitral and tricuspid regurgitation
[2025-10-06] MEDS: VANCOMYCIN 1GM/250ML KIT 250 ML IV SCH (14:50)
[2025-10-06 19:41] LABS: COVID19 ANTIGEN SOFIA FIA NEGATIVE (NEGATIVE)
[2025-10-06] MEDS: DIGOXIN (250MCG/ML) 2 ML AMPULE IV ONE (20:46)
--- NOTE | 2025-10-06 21:31 | DVHINCON2 ---
Date of service: Oct 06, 2025 Referring Physician Bruce Reason for Consultation New A-fib History of Present Illness This is a 40 year old male with a PMH of CHF, DM and morbid obesity who presented to the ED with complaints of SOB with persistent productive cough for the past 2 weeks. Patient states that his cough causes right abdominal pain and a similar previous episode of cough a year ago was so severe that it caused abdominal muscle trauma. Patient takes Lasix but still has BLE edema. Patient denies h/o Afib but according to his medical records, he was admitted in 2022 with tachycardia that was later diagnose as Atrial flutter with rapid rate. He underwent cardioversion at that time that successfully converted him to NSR. GLUC 395. EKG shows A Fib at 133. Chest x-ray shows mild cardiomegaly. CT ABD PEL showed lower abdominal wall edema/cellulitis. Viral swabs are negative. UDS is negative. Troponin is negative. Patient was admitted to the hospital. I am asked to consult on this patient. Family History: Family history: Cardiovascular disease G8 MOTHER (CHF) Family history: Diabetes mellitus G8 MOTHER Family history: Hypercholesterolemia (situation) G8 MOTHER Family history: Hypertension G8 FATHER Pacemaker G8 MOTHER Allergies: Coded Allergies: NO KNOWN ALLERGIES (Unverified , 02/24/21) Home Meds Active Scripts Pantoprazole Sodium Sesquihydr (Protonix) 40 Mg Tab, 40 MG PO DAILY for 5 Days, #5 TAB Prov:DARRON HOFFMANN MD 10/11/24 Baclofen (Baclofen) 10 Mg Tab, 10 MG PO BID, #20 TAB Prov:ARGENTINA TAVARES 10/07/24 Ibuprofen (Ibuprofen) 800 Mg Tab, 1 TAB PO TID, #30 TAB Prov:ARGENTINA TAVARES 10/07/24 Metoprolol Tartrate (Lopressor) 25 Mg Tb, 25 MG PO BID, #60 TAB Prov:YUE MANRIQUE MD 07/14/23 Apixaban Base (ELIQUIS) 5 Mg Tab, 5 MG PO BID, #60 TAB Prov:YUE MANRIQUE MD 07/14/23 Aspirin (Aspirin Low Strength) 81 Mg Chw, 81 MG PO DAILY, #30 TAB.CHEW Prov:YUE MANRIQUE MD 07/14/23 Amiodarone Hcl (Amiodarone Hcl) 200 Mg Tab, 1 TAB PO BID for 30 Days, #60 TAB 0 Refills Prov:YUE MANRIQUE MD 07/14/23 Hydrocodone-Acetaminophen (Hydrocodone Bitartrate/AC 5-325 mg) 1 Tab Tab, 1 TAB PO Q6HP PRN, #20 TAB Prov:DEIDRE CORTES PAC 12/06/22 Acetaminophen W/ Codeine (Tylenol W/Cod #3) 1 Tab Tb, 1 TAB PO QIDP, #10 TAB 0 Refills Prov:YESSI TOUSSAINT 02/23/22 Cyclobenzaprine Hcl (Cyclobenzaprine Hcl) 5 Mg Tab, 1 TAB PO QPM PRN, #14 TAB 0 Refills Prov:YESSI TOUSSAINT 02/23/22 Atorvastatin Calcium (Lipitor) 40 Mg Tab, 1 TAB PO DAILY, #30 TAB Prov:CLARISSA CASTRO MD 02/26/21 Enalapril Maleate (Vasotec) 5 Mg Tab, 1 TAB PO DAILY, #30 TAB Prov:CLARISSA CASTRO MD 02/26/21 Cholecalciferol (VITAMIN D3) 5,000 Unit Tab, 5000 UNIT PO DAILY, #30 TAB Prov:CLARISSA CASTRO MD 02/26/21 Furosemide (Lasix) 40 Mg Tab, 40 MG PO DAILY for 30 Days, #30 TAB Prov:CLARISSA CASTRO MD 02/26/21 Current Medications Current Medications Medications (Trade) Dose Ordered Sig/Ralph Route PRN Reason Start Time Stop Time Status Last Admin Nitroglycerin (Ntrostat Sublingual) 0.4 mg Q5MINP PRN SL FOR CHEST PAIN 10/06/25 00:30 Morphine Sulfate 2 mg Q30M PRN IV FOR CHEST PAIN 10/06/25 00:30 Furosemide (Lasix Injection) 40 mg Q8HR IV 10/06/25 06:00 10/06/25 06:34 Diagnostic Test (Pha) (Accu-Chek Comfort Curve T) 1 strip ACHS 10/06/25 07:00 10/06/25 11:26 Insulin Human Regular (InsuLIN R) HS SC 10/06/25 22:00 Insulin Human Regular (InsuLIN R) AC SC 10/06/25 07:00 10/06/25 11:29 Dextrose 50 ml UD PRN IV Blood Sugar LESS THAN 60 10/06/25 00:30 Albuterol (Ventolin Medneb) 2.5 mg Q6HR NEB 10/06/25 06:00 10/06/25 07:28 Ipratropium [place] (Atrovent Medneb) 0.5 mg Q6HP NEB 10/06/25 06:00 10/06/25 07:28 Hydralazine HCl (Apresoline Tablet) 10 mg Q6HR PO 10/06/25 06:00 10/06/25 05:38 DC Hydralazine HCl (Apresoline Tablet) 10 mg Q6HR PO 10/06/25 05:45 Cancel Hydralazine HCl (Apresoline Injection) 10 mg Q6HP PRN IV SBP>150 10/06/25 05:45 Metoprolol Tartrate (Lopressor Tablet) 25 mg BID PO 10/06/25 10:00 10/06/25 10:05 Cefepime HCl 50 ml @ 12.5 mls/hr Q8HR IV 10/06/25 09:30 10/06/25 10:05 Heparin Sodium/ Dextrose 250 ml @ 15.396 mls/ hr [id number] IV 10/06/25 11:45 10/06/25 11:47 DC Vancomycin HCl 0 ml @ 0 mls/hr PER PHARMACY IV 10/06/25 11:45 UNV Amiodarone HCl 250 ml @ 16.66 mls/ hr Q15H1M IV 10/06/25 18:00 UNV Apixaban (Eliquis) 5 mg BID PO 10/06/25 22:00 UNV Review of Systems CONSTITUTIONAL: Denies acute: fever, diaphoresis, chills, generalized weakness. HEAD: Denies acute: headache, photophobia Eyes: Denies acute: Double vision, vision loss, eye pain, eye discharge. EARS: Denies acute: tinnitus, hearing loss, ear discharge, ear pain, THROAT: Denies acute: sore throat, swelling, difficulty swallowing , pain with swallowing, change in voice. NECK: Denies acute: neck pain, neck swelling, stiff neck. HEART: Denies acute : chest pain, palpitations, LUNGS: Denies acute: , wheezing, , hemoptysis ABDOMEN: Denies acute: Nausea, Vomiting, diarrhea, melena , hematemesis, hematochezia SKIN: Denies acute: rash, redness, lesions, itchiness. EXTREMITIES: Denies acute: calf pain, numbness, tingling, weakness, denies pain in extremity. Denies acute: Low back pain. Neuro: Denies acute: focal neurological deficit, motor or sensory focal neurological deficit, tremors, seizure like activity, confusion, dizziness, change in mental status, loss of bowel or bladder function, cauda equina like symptoms. : Denies acute: dysuria, hematuria, flank pain, increase in urinary frequency. PSYCH: Denies acute: hallucination, suicidal ideation, homicidal ideation. Vital Signs Vital Signs Date Time Temp Pulse Resp B/P (MAP) Pulse Ox O2 Delivery O2 Flow Rate FiO2 10/06/25 11:05 130 124/92 10/06/25 08:00 97.8 21 92 97.8 10/06/25 07:30 Nasal Cannula* 2 28 Physical Exam GENERAL: Alert and oriented x 3. No acute distress. Morbidly obese. EYES: PERRL, EOMI. Anicteric. HENT: Moist mucous membranes. LUNGS: Clear to auscultation bilaterally. CARDIOVASCULAR: Irregular rate and rhythm. ABDOMEN: Soft, nontender and nondistended. EXTREMITIES: No edema. NEUROLOGIC: No focal neurological deficits. SKIN: Warm, dry. Labs/Diagnostic Data Labs Test 10/06/25 11:18 10/06/25 03:34 10/06/25 00:55 10/05/25 23:35 Range/Units POC Glucose 158 H 70-106 mg/dl Troponin I High Sensitivity 33 </=54 ng/L Blood Gas Specimen Type Arterial Blood Gas Sample Site Right radial Blood Gas Patient Temperature 37.0 Arterial Blood Date Drawn [id number] Arterial Blood pH 7.416 7.350-7.450 Arterial Blood Partial Pressure CO2 46.0 35.0-48.0 mmHg Arterial Blood Partial Pressure O2 73.4 L 83.0-108.0 mmHg Arterial Blood HCO3 28.9 H 21.0-28.0 mmol/L Tyrell Test Yes Blood Gas Total Hemoglobin > 21.20 *H 13.5-17.5 g/dL Blood Gas Modality Room air FiO2 % 21.0 Blood Gas Critical Value Read Back Yes Blood Gas Notified Whom flako Barrera md Blood Gas Notified Time [id number] Blood Gas Notified By Urine Color Yellow Yellow Urine Clarity Clear Clear Urine pH 7.0 5.0-9.0 Urine Specific [facility] 1.028 1.001-1.035 Urine Protein 2+ H Negative Urine Ketones Negative Negative Urine Blood Negative Negative /uL Urine Nitrite Negative Negative Urine Bilirubin Negative Negative Urine Urobilinogen 12 H Negative mg/dL Urine Leukocyte Esterase Negative Negative /uL Urine RBC 3 0 - 3 /hpf Urine Microscopic WBC 1 0-3 /HPF Urine Squamous Epithelial Cells None seen <5 /hpf Urine Bacteria None seen None Seen /hpf Urine Glucose Normal Normal mg/dL Urine Opiates Screen Neg NEGATIVE Urine Fentanyl Screen Neg NEGATIVE Urine Barbiturates Screen Neg NEGATIVE Urine Phencyclidine Screen Neg NEGATIVE Urine Amphetamines Screen Neg NEGATIVE Urine Benzodiazepines Screen Neg NEGATIVE Urine Cocaine Screen Neg NEGATIVE Urine Cannabinoids Screen Neg NEGATIVE Test 10/05/25 20:43 Range/Units White Blood Count 6.3 4.4-10.8 10^3/uL Red Blood Count 6.59 H 4.5-5.90 10^6/uL Hemoglobin 19.3 H 13.5-17.5 g/dL Hematocrit 59.0 H 41.0-53.0 % Mean Corpuscular Volume 89.5 80.0-100.0 fL Mean Corpuscular Hemoglobin 29.3 28.0-32.0 pg Mean Corpuscular Hemoglobin Concent 32.7 32.0-36.0 g/dL Red Cell Distribution Width 20.7 H 11.8-14.3 % Platelet Count 139 L 140-450 10^3/uL Mean Platelet Volume 10.0 6.9-10.8 fL Neutrophils (%) (Auto) 71.4 37.0-80.0 % Lymphocytes (%) (Auto) 18.9 10.0-50.0 % Monocytes (%) (Auto) 7.9 0.0-12.0 % Eosinophils (%) (Auto) 1.3 0.0-7.0 % Basophils (%) (Auto) 0.5 0.0-2.0 % Neutrophils # (Auto) 4.5 1.6-8.6 10 ^3/uL Lymphocytes # (Auto) 1.2 0.4-5.4 10 ^3/uL Monocytes # (Auto) 0.5 0-1.3 10 ^3/uL Eosinophils # (Auto) 0.1 0-0.8 10 ^3/uL Basophils # (Auto) 0 0-0.2 10 ^3/uL Nucleated Red Blood Cells 0.3 % D-Dimer, Quantitative 0.19 0.0-0.49 mg/L FEU Sodium Level 141 136-145 mmol/L Potassium Level 4.1 3.5-5.1 mmol/L Chloride Level 103 98-107 mmol/L Carbon Dioxide Level 32 H 20-31 mmol/L Anion Gap 6 5-15 Blood Urea Nitrogen 16 9-23 mg/dL Creatinine 0.84 0.700-1.30 mg/dL Glomerular Filtration Rate Calc 113 >90 mL/min BUN/Creatinine Ratio 19.0 10.0-20.0 Serum Glucose 200 H 74-106 mg/dL Lactic Acid Level 1.1 0.4-2.0 mmol/L Calcium Level 8.7 8.7-10.4 mg/dL Magnesium Level 1.8 1.6-2.6 mg/dL Total Bilirubin 0.6 0.2-1.0 mg/dL Aspartate Amino Transferase (AST) 31 13-40 U/L Alanine Aminotransferase (ALT) 55 H 7-40 U/L Alkaline Phosphatase 131 H 46-116 U/L B-Type Natriuretic Peptide 142.40 0-100 pg/mL Total Protein 5.9 5.7-8.2 g/dL Albumin 3.4 3.2-4.8 g/dL Lipase 38 12-53 U/L Assessment CHF exacerbation. Morbid obesity. Uncontrolled diabetes mellitus. Plan/Recommendation I agree with your ongoing assessment and care of plan. Nitro SL. Eliquis. Metoprolol. Amiodarone. IV Hydralazine for SBP >150. Diuretics with Lasix. IV antibiotics as ordered. Morphine for pain management. Additional plan as per the hospital course. A total of 45 minutes was spent reviewing the patient record, examining the patient, making a diagnostic and therapeutic plan, discussing this plan with medical personnel, following up on diagnostic studies and following the patient for clinical stability excluding any and all procedures. At least 50% of this time was spent in direct, [id number] contact. Plan discussed with: Patient MACKDEZ Bettencourt MD Oct 06, 2025 11:57
[2025-10-06] MEDS: APIXABAN 5 MG TAB PO SCH (22:50)
[2025-10-07] VITALS (18 sets, daily range): BP systolic 109–130; BP diastolic 79–100; PULSE 66–130; RESP 18–97; TEMP 96.3–98.3; O2SAT 91–99
[2025-10-07] MEDS ORDERED: FURO40TA4 PO (00:25)
[2025-10-07] MEDS: VANCOMYCIN 1.5GM/250ML 250 ML IV SCH (03:14)
[2025-10-07] MEDS: dilTIAZem 25 MG/5 ML VIAL IV ONE (04:07)
[2025-10-07 06:22] LABS: Mean Corpuscular Hemoglobin 29.3 pg (28.0-32.0)
[2025-10-07 06:25] LABS: Hemoglobin 20.6 g/dL (13.5-17.5); Mean Corpuscular Volume 90.6 fL (80.0-100.0); Nucleated Red Blood Cells % 0.1 %
[2025-10-07 06:29] LABS: Hematocrit 63.7 % (41.0-53.0)
[2025-10-07 06:35] LABS: Albumin 3.6 g/dL (3.2-4.8); Alkaline Phosphatase 115 U/L (46-116); BUN/Creatinine Ratio 16.4 (10.0-20.0); Blood Urea Nitrogen 12 mg/dL (9-23); Calcium 9.0 mg/dL (8.7-10.4); Chloride 100 mmol/L (98-107); Potassium 4.2 mmol/L (3.5-5.1); Sodium 138 mmol/L (136-145); Total Protein 6.5 g/dL (5.7-8.2)
[2025-10-07 06:39] LABS: Alanine Aminotransferase 53 U/L (7-40); Bilirubin, Total 1.7 mg/dL (0.2-1.0); Glucose 125 mg/dL (74-106)
[2025-10-07 06:41] LABS: Anion Gap 9 (5-15); Carbon Dioxide 29 mmol/L (20-31)
--- NOTE | 2025-10-07 07:01 | DVHPN2 ---
Progress Note Date Seen: Oct 07, 2025 Medical Necessity Reason Pt with a Central, PICC or Fol: No Subjective Patient reports: Other (n) Review of Systems: HEENT:Normal, CVS:Abnormal, GI:Normal Objective vital signs Vital Sign Date Time Temp Pulse Resp B/P (MAP) Pulse Ox O2 Delivery O2 Flow Rate FiO2 10/07/25 06:00 126/88 10/07/25 05:50 95 Nasal Cannula* 2 28 10/07/25 05:50 122 20 10/07/25 05:00 98.3 98.3 Total Intake and Output 10/06/25 10/06/25 10/07/25 15:00 23:00 07:00 Intake Total 128.32 ml 1143.19 ml Output Total 700 ml Balance 128.32 ml 443.19 ml medications Current Medications Medications Dose Ordered Sig/Ralph Route Start Time Stop Time Status Last Admin Dose Admin Nitroglycerin 0.4 mg Q5MINP PRN SL 10/06/25 00:30 Morphine Sulfate 2 mg Q30M PRN IV 10/06/25 00:30 Diagnostic Test (Pha) 1 strip ACHS 10/06/25 07:00 10/07/25 06:27 1 STRIP Insulin Human Regular HS SC 10/06/25 22:00 Insulin Human Regular AC SC 10/06/25 07:00 10/07/25 06:30 2 UNITS Dextrose 50 ml UD PRN IV 10/06/25 00:30 Albuterol 2.5 mg Q6HR NEB 10/06/25 06:00 10/07/25 05:56 2.5 MG Ipratropium [place] 0.5 mg Q6HP NEB 10/06/25 06:00 10/07/25 05:56 0.5 MG Hydralazine HCl 10 mg Q6HR PO 10/06/25 05:45 Cancel Hydralazine HCl 10 mg Q6HP PRN IV 10/06/25 05:45 Metoprolol Tartrate 25 mg BID PO 10/06/25 10:00 10/06/25 22:51 25 MG Vancomycin HCl 0 ml @ 0 mls/hr PER PHARMACY IV 10/06/25 11:45 Apixaban 5 mg BID PO 10/06/25 22:00 10/06/25 22:50 5 MG Furosemide 40 mg BIDD IV 10/06/25 18:00 10/07/25 06:00 40 MG Cefepime HCl 50 ml @ 12.5 mls/hr Q8HR IV 10/06/25 16:30 10/07/25 06:00 12.5 MLS/HR Vancomycin HCl 250 ml @ 166.667 mls/hr Q12H IV 10/07/25 03:00 10/07/25 03:14 166.667 MLS/HR Examination: GENERAL:Normal, LUNGS:Normal, CVS:Abnormal laboratory and microbiology Laboratory Tests 10/07/25 04:52 Test 10/07/25 04:52 Range/Units Serum Glucose 125 H 74-106 mg/dL Problem List/Assessment/Plan Problem List/Assessment/Plan 1) HFrEF 20-35% 2) Afib RVR/flutter 3) Panniculitis 4) DM 5) Morbid obesity plan; patient HR still in 120s aflutter, continue smio gtt 1 mg/min, given digoxin last night IV x1, on eliquis and PO BB, echo shows EF 30-35%, continue IV lasix BID, cardiology on board, Dc planning once rate better controlled, AM labs, will follow along Plan discussed with: Other (n) FLAQUITO BYNUM MD Oct 07, 2025 07:01
[2025-10-07] MEDS: AMIODARONE BOLUS KIT 100 ML IV ONE (10:00)
--- NOTE | 2025-10-07 17:40 | MEDREC ---
[facility] Intervention Section I [facility] Intervention: Review courses of therapy (PLEASE CONSIDER D/C ANTIBIOTIC IN ABSENCE OF BACTERIAL INFECTION) QUE LIRIANO PHARMACIST Oct 07, 2025 17:40
[2025-10-07] MEDS: DIGOXIN (250MCG/ML) 2 ML AMPULE IV ONE (23:01)
[2025-10-07] MEDS: DIGOXIN (250MCG/ML) 2 ML AMPULE ONE (23:02)
[2025-10-07] MEDS: MIDAZOLAM HCL 2MG/2ML 2ml VIAL (1mg/ml) ONE (23:06)
--- NOTE | 2025-10-07 23:27 | DVHPN2 ---
Progress Note - Dictate Date Seen: Oct 07, 2025 Medical Necessity Reason Pt with a Central, PICC or Fol: No Subjective Patient was seen and evaluated in follow up. Patient remains in A Flutter in the 120s today. Patient underwent successful electrical cardioversion, patient is back in NSR. Patient to be discharged on Amiodarone 200mg BID, Coreg 3.125 BID Lasix 40mg BID, Spironolactone 50mg daily, Farxiga 10mg daily, Eliquis. Patient is advised for outpatient follow up in my office on Wednesday. Telemetry reviewed. vital signs Vital Sign Date Time Temp Pulse Resp B/P (MAP) Pulse Ox O2 Delivery O2 Flow Rate FiO2 10/07/25 11:47 120 20 94 10/07/25 10:21 115/82 10/07/25 10:00 Nasal Cannula* 3 32 10/07/25 09:00 97.2 97.2 Total Intake and Output 10/06/25 10/06/25 10/07/25 15:00 23:00 07:00 Intake Total 128.32 ml 1143.19 ml Output Total 700 ml Balance 128.32 ml 443.19 ml medications Current Medications Medications Dose Ordered Sig/Ralph Route Start Time Stop Time Status Last Admin Dose Admin Nitroglycerin 0.4 mg Q5MINP PRN SL 10/06/25 00:30 Morphine Sulfate 2 mg Q30M PRN IV 10/06/25 00:30 Diagnostic Test (Pha) 1 strip ACHS 10/06/25 07:00 10/07/25 12:35 1 STRIP Insulin Human Regular HS SC 10/06/25 22:00 Insulin Human Regular AC SC 10/06/25 07:00 10/07/25 12:33 2 UNITS Dextrose 50 ml UD PRN IV 10/06/25 00:30 Albuterol 2.5 mg Q6HR NEB 10/06/25 06:00 10/07/25 11:47 2.5 MG Ipratropium [place] 0.5 mg Q6HP NEB 10/06/25 06:00 10/07/25 11:47 0.5 MG Hydralazine HCl 10 mg Q6HR PO 10/06/25 05:45 Cancel Hydralazine HCl 10 mg Q6HP PRN IV 10/06/25 05:45 Metoprolol Tartrate 25 mg BID PO 10/06/25 10:00 10/07/25 10:21 25 MG Vancomycin HCl 0 ml @ 0 mls/hr PER PHARMACY IV 10/06/25 11:45 Apixaban 5 mg BID PO 10/06/25 22:00 10/07/25 10:19 5 MG Furosemide 40 mg BIDD IV 10/06/25 18:00 10/07/25 06:00 40 MG Cefepime HCl 50 ml @ 12.5 mls/hr Q8HR IV 10/06/25 16:30 10/07/25 06:00 12.5 MLS/HR Vancomycin HCl 250 ml @ 166.667 mls/hr Q12H IV 10/07/25 03:00 10/07/25 03:14 166.667 MLS/HR objective GENERAL: Alert and oriented x 3. No acute distress. Morbidly obese. EYES: PERRL, EOMI. Anicteric. HENT: Moist mucous membranes. LUNGS: Clear to auscultation bilaterally. CARDIOVASCULAR: Irregular rate and rhythm. ABDOMEN: Soft, nontender and nondistended. EXTREMITIES: No edema. NEUROLOGIC: No focal neurological deficits. SKIN: Warm, dry. laboratory and microbiology Laboratory Tests 10/07/25 04:52 Test 10/07/25 04:52 Range/Units Serum Glucose 125 H 74-106 mg/dL Problem List CHF exacerbation. Morbid obesity. Uncontrolled diabetes mellitus. Assessment/Plan Continued all current supportive medical care. Nitro SL. Eliquis. Metoprolol. Amiodarone. IV Hydralazine for SBP >150. Diuretics with Lasix. IV antibiotics as ordered. Morphine for pain management. Additional plan as per the hospital course. Plan discussed with: Patient DEZ GIRON MD Oct 07, 2025 13:41
--- NOTE | 2025-10-07 23:59 | DVHOP ---
TECHNIQUE PERFORMED: * Emergency case. * Electrical cardioversion. * Management of conscious sedation. ASSISTANTS: Assisted by our nurse is Valeria, she is also the nurse. INDICATIONS: The patient had atrial flutter with a rapid ventricular response of 130 per minute. The patient was given amiodarone drip, IV digoxin, and it did not help. The patient had cardiomyopathy, ejection fraction in the range of 30%. DESCRIPTION OF PROCEDURE: The procedure risks and benefits have been discussed Appropriate treatment discussed. Counseling done. Patient had the information given. The patient was given 2 mg of Versed. The patient's electrical pad had been attached. The patient was already getting Eliquis. The patient was given 125 joules synchronous and electrical cardioversion was done and the patient converted to sinus rhythm. CONCLUSION: Successful electrical cardioversion. PLAN OF ACTION: * Advised the patient to be on amiodarone 200 b.i.d. * Advised on Coreg 3.125 b.i.d. * Lasix 40 mg twice a day. * Spironolactone 50 mg a day. * Farxiga 10 mg a day. * Eliquis 5 mg b.i.d. Advised to see me back in the office in the next couple of days. Discussion done with the patient. Cristo Esparza MD MP/KEVIN TID: [id number] RECEIPT: [id number] MTDD
[2025-10-08] VITALS (11 sets, daily range): BP systolic 118–140; BP diastolic 85–98; PULSE 66–100; RESP 16–20; TEMP 36.5; O2SAT 91–100
[2025-10-08] MEDS ORDERED: METF-370 PO (01:21)
[2025-10-08] MEDS ORDERED: SIMV10TA20 PO (01:22)
[2025-10-08] MEDS ORDERED: BUDE1AER6 IN (01:23)
[2025-10-08] MEDS ORDERED: LISI-275 PO (01:23)
[2025-10-08 03:25] LABS: Hemoglobin 20.0 g/dL (13.5-17.5); Mean Corpuscular Volume 90.6 fL (80.0-100.0)
[2025-10-08 03:32] LABS: Hematocrit 61.3 % (41.0-53.0); Mean Corpuscular Hemoglobin 29.5 pg (28.0-32.0); Nucleated Red Blood Cells % 0.6 %
[2025-10-08 04:03] LABS: Potassium 4.6 mmol/L (3.5-5.1); Sodium 139 mmol/L (136-145)
[2025-10-08 04:04] LABS: Anion Gap 11 (5-15); Carbon Dioxide 31 mmol/L (20-31)
[2025-10-08 04:05] LABS: Calcium 9.0 mg/dL (8.7-10.4)
[2025-10-08 04:09] LABS: BUN/Creatinine Ratio 25.0 (10.0-20.0)
[2025-10-08 04:11] LABS: Chloride 97 mmol/L (98-107); Glucose 120 mg/dL (74-106)
[2025-10-08 04:12] LABS: Blood Urea Nitrogen 27 mg/dL (9-23)
[2025-10-08] MEDS ORDERED: APIX5TAB PO (05:19)
[2025-10-08] MEDS ORDERED: AMIO200T33 PO (05:19)
[2025-10-08] MEDS ORDERED: CARV-214 OR (05:19)
[2025-10-08] MEDS ORDERED: SPIR50TA2 PO (05:19)
[2025-10-08] MEDS ORDERED: DAPA1TAB4 PO (05:19)
--- NOTE | 2025-10-08 05:26 | DVHDS2 ---
New Physician D'charge PN Admitting Diagnosis Admitting Diagnosis CHF aflutter RVR Discharge Diagnosis HFrEF 30-35% aflutter, now cardioverted to NSR Operations or Procedures electrical cardioversion Reason(s) For Hospitalization Surgery Hospital Course 40 M who comes to ER complaining of SOB and palpitations. He was noted to be in atrial flutter with RVR HR 120s. His PBNP was elevated and imaging revealed congestion suggestive for CHF. He was admitted and seen by cardiology. amiodarone gtt was started for aflutter RVR along with PO BB and IV lasix and PO eliquis. He had an echo done which showed EF 30-35%. He was diuresed with lasix IV throughout the hospital course. Despite the amio gtt and mutiple doses of digoxin her remained in a flutter RVR thus cardiology did a DCCV at bedside last night and he was converted to NSR. He had a CT abdomen done which mentioned findings of panniculitis thus the patient was started on IV Abx however he never had a white count or left shift and blood cultures were all negative. He has been cleared by cardiology for DC home on PO coreg, amiodarone, aldactone, eliquis, farxiga and lasix BID. All prescriptions have been sent electronically to the patients pharmacy on [facility] to arrange for all outpt follow up and patient to DC home. He will follow up with cardiology outpatient this week.. Treatment Plan Discharge Condition of Discharge Good Disposition Home Discharge Instructions Diet: Consistent carbohydrate, Cardiac 2g Na,low cholest Activity: No Restrictions, As Tolerated Medications: see med sheet Follow Up Care Discharge Statement: "Patient was advised to return to the ER or call 911 if any headaches, dizziness, shortness of breath, chest pain, abdominal pain, bleeding, fevers, or worsening of medical condition. Patient was counseled about treatment plan, medications, possible side effects, patientverbalized understanding. All questions were answered to the best of my ability. This discharge took greater then 30 minutes in planning, reviewing documentation, counseling the patient, and discussing with other team members." FLAQUITO BYNUM MD Oct 08, 2025 05:26
[2025-10-08] MEDS ORDERED: ATOR-507 PO (05:31)
[2025-10-08] MEDS ORDERED: FURO1TAB31 PO (05:31)
[2025-10-08] MEDS: AMIODARONE HCL 200 MG TAB PO SCH (06:05)
[2025-10-08] MEDS ORDERED: AMIODARONE HCL 200 MG TAB PO SCH (10:00)
[2025-10-08] MEDS: MIDAZOLAM HCL 2MG/2ML 2ml VIAL (1mg/ml) IV ONE (11:59)
--- NOTE | 2025-10-08 11:59 | CONS ---
Pharmacy Clinical Information: From Heart Failure Fallout Report on CQM Application, Favian Marinelli is a 40-year-old male with CHF, DM, morbid obesity His home medications for CHF include carvedilol, dapagliflozin, lisinopril, simv astatin, and spironolactone His inpatient medications for CHF include metoprolol tartrate For optimal heart failure GDMT, please consider resuming patients home medications - D/C metoprolol tartrate. Continue carvedilol home dose or switch metoprolol tartrate to metoprolol succinate as the evidence-based beta-jim. - Maintain ANN inhibitor therapy with lisinopril. - Continue spironolactone as the mineralocorticoid receptor antagonist and dapagliflozin as the SGLT2 inhibitor. - For lipid management, continue statin therapy but consider switching from simvastatin to atorvastatin or rosuvastatin for greater potency and fewer drug interactions. Monitor blood pressure, renal function, electrolytes, and titrate doses toward guideline-recommended targets. JUAN R ZAMORANO [facility] RESIDENT Oct 08, 2025 11:59
--- NOTE | 2025-10-08 20:20 | DVHPN2 ---
Progress Note - Dictate Date Seen: Oct 08, 2025 Medical Necessity Reason Pt with a Central, PICC or Fol: No Subjective Patient was seen and evaluated in follow up. Patient has no new complaints at this time. Patient denies any cardiac symptoms. Patient is cardiac stable for discharge. Telemetry reviewed. vital signs Vital Sign Date Time Temp Pulse Resp B/P (MAP) Pulse Ox O2 Delivery O2 Flow Rate FiO2 10/08/25 13:10 36.5 73 20 95 10/08/25 13:00 121/89 (100) 10/08/25 11:13 Mask 6.0 10/08/25 11:13 50 Total Intake and Output 10/07/25 10/07/25 10/08/25 15:00 23:00 07:00 Intake Total 675 ml 950 ml Balance 675 ml 950 ml medications Current Medications Medications Dose Ordered Sig/Ralph Route Start Time Stop Time Status Last Admin Dose Admin Hydralazine HCl 10 mg Q6HR PO 10/06/25 05:45 Cancel objective GENERAL: Alert and oriented x 3. No acute distress. Morbidly obese. EYES: PERRL, EOMI. Anicteric. HENT: Moist mucous membranes. LUNGS: Clear to auscultation bilaterally. CARDIOVASCULAR: Irregular rate and rhythm. ABDOMEN: Soft, nontender and nondistended. EXTREMITIES: No edema. NEUROLOGIC: No focal neurological deficits. SKIN: Warm, dry. laboratory and microbiology Laboratory Tests 10/08/25 02:06 Test 10/08/25 02:06 Range/Units Serum Glucose 120 H 74-106 mg/dL Problem List CHF exacerbation. Morbid obesity. Uncontrolled diabetes mellitus. Assessment/Plan Continued all current supportive medical care. Eliquis. Metoprolol. Amiodarone. Diuretics with Lasix. IV antibiotics as ordered. Morphine for pain management. Additional plan as per the hospital course. Plan discussed with: Patient DEZ GIRON MD Oct 08, 2025 20:20
--- NOTE | 2025-10-08 23:42 | DVHINCON2 ---
Family History: Family history: Cardiovascular disease G8 MOTHER (CHF) Family history: Diabetes mellitus G8 MOTHER Family history: Hypercholesterolemia (situation) G8 MOTHER Family history: Hypertension G8 FATHER Pacemaker G8 MOTHER Allergies: Coded Allergies: NO KNOWN ALLERGIES (Unverified , 02/24/21) Home Meds Active Scripts Atorvastatin Calcium (Lipitor) 40 Mg Tab, 1 TAB PO DAILY, #30 TAB 3 Refills Prov:FLAQUITO BYNUM MD 10/08/25 Furosemide (Lasix) 40 Mg Tab, 40 MG PO BID for 30 Days, #60 TAB 2 Refills Prov:FLAQUITO BYNUM MD 10/08/25 Spironolactone (Aldactone) 50 Mg Tab, 1 TAB PO DAILY, #30 TAB 3 Refills Prov:FLAQUITO BYNUM MD 10/08/25 Dapagliflozin Propanediol (Farxiga) 10 Mg Tab, 10 MG PO DAILY for 30 Days, #30 TAB 2 Refills Prov:FLAQUITO BYNUM MD 10/08/25 Carvedilol (COREG) 3.125 Mg Tab, 3.125 MG OR BID for 60 Days, #120 TAB 3 Refills Prov:FLAQUITO BYNUM MD 10/08/25 Apixaban Base (ELIQUIS) 5 Mg Tab, 5 MG PO BID, #60 TAB 2 Refills Prov:FLAQUITO BYNUM MD 10/08/25 Amiodarone Hcl (Amiodarone Hcl) 200 Mg Tab, 1 TAB PO BID for 30 Days, #60 TAB 2 Refills Prov:FLAQUITO BYNUM MD 10/08/25 Pantoprazole Sodium Sesquihydr (Protonix) 40 Mg Tab, 40 MG PO DAILY for 5 Days, #5 TAB Prov:DARRON HOFFMANN MD 10/11/24 Baclofen (Baclofen) 10 Mg Tab, 10 MG PO BID, #20 TAB Prov:ARGENTINA TAVARES 10/07/24 Ibuprofen (Ibuprofen) 800 Mg Tab, 1 TAB PO TID, #30 TAB Prov:ARGENTINA TAVARES 10/07/24 Hydrocodone-Acetaminophen (Hydrocodone Bitartrate/AC 5-325 mg) 1 Tab Tab, 1 TAB PO Q6HP PRN, #20 TAB Prov:DEIDRE CORTES 12/06/22 Cyclobenzaprine Hcl (Cyclobenzaprine Hcl) 5 Mg Tab, 1 TAB PO QPM PRN, #14 TAB 0 Refills Prov:YESSI TOUSSAINT 02/23/22 Enalapril Maleate (Vasotec) 5 Mg Tab, 1 TAB PO DAILY, #30 TAB Prov:CLARISSA CASTRO MD 02/26/21 Cholecalciferol (VITAMIN D3) 5,000 Unit Tab, 5000 UNIT PO DAILY, #30 TAB Prov:CLARISSA CASTRO MD 02/26/21 Reported Medications Ogyljvrcgg-Ketpfslnlazqee-Kmyw (Breztri Aerosphere 160-9-4.8 Mcg/Act) 1 Aer Aer, 1 AER IN, AER 10/08/25 Lisinopril (Lisinopril) 5 Mg Tab, 5 MG PO DAILY for 30 Days, MG 10/08/25 Metformin Hydrochloride (Metformin Hcl) 500 Mg Tab, 500 MG PO IBID for 30 Days, MG 10/08/25 Discontinued Reported Medications Simvastatin (Simvastatin) 10 Mg Tab, PO DAILY for 30 Days, MG 10/08/25 Furosemide (Furosemide) 40 Mg Tab, 1 TAB PO DAILY 10/07/25 Discontinued Scripts Metoprolol Tartrate (Lopressor) 25 Mg Tb, 25 MG PO BID, #60 TAB Prov:YUE MANRIQUE MD 07/14/23 Aspirin (Aspirin Low Strength) 81 Mg Chw, 81 MG PO DAILY, #30 TAB.CHEW Prov:YUE MANRIQUE MD 07/14/23 Acetaminophen W/ Codeine (Tylenol W/Cod #3) 1 Tab Tb, 1 TAB PO QIDP, #10 TAB 0 Refills Prov:YESSI TOUSSAINT 02/23/22 Current Medications Current Medications Medications (Trade) Dose Ordered Sig/Ralph Route PRN Reason Start Time Stop Time Status Last Admin Amiodarone HCl (Cordarone Tablet) 200 mg Q12HR PO 10/08/25 10:00 10/08/25 04:50 DC Amiodarone HCl (Cordarone Tablet) 200 mg Q12H PO 10/08/25 07:00 10/08/25 15:48 DC 10/08/25 06:05 Vital Signs Vital Signs Date Time Temp Pulse Resp B/P (MAP) Pulse Ox O2 Delivery O2 Flow Rate FiO2 10/08/25 13:10 36.5 73 20 95 10/08/25 13:00 121/89 (100) 10/08/25 11:13 Mask 6.0 10/08/25 11:13 50 Labs/Diagnostic Data Labs Test 10/08/25 13:06 10/08/25 02:06 10/07/25 04:52 10/06/25 16:50 Range/Units POC Glucose 213 H 70-106 mg/dl White Blood Count 7.3 4.4-10.8 10^3/uL Red Blood Count 6.77 H 4.5-5.90 10^6/uL Hemoglobin 20.0 H 13.5-17.5 g/dL Hematocrit 61.3 H 41.0-53.0 % Mean Corpuscular Volume 90.6 80.0-100.0 fL Mean Corpuscular Hemoglobin 29.5 28.0-32.0 pg Mean Corpuscular Hemoglobin Concent 32.6 32.0-36.0 g/dL Red Cell Distribution Width 21.3 H 11.8-14.3 % Platelet Count 164 140-450 10^3/uL Mean Platelet Volume 9.8 6.9-10.8 fL Neutrophils (%) (Auto) 72.3 37.0-80.0 % Lymphocytes (%) (Auto) 17.3 10.0-50.0 % Monocytes (%) (Auto) 8.3 0.0-12.0 % Eosinophils (%) (Auto) 1.7 0.0-7.0 % Basophils (%) (Auto) 0.4 0.0-2.0 % Neutrophils # (Auto) 5.3 1.6-8.6 10 ^3/uL Lymphocytes # (Auto) 1.3 0.4-5.4 10 ^3/uL Monocytes # (Auto) 0.6 0-1.3 10 ^3/uL Eosinophils # (Auto) 0.1 0-0.8 10 ^3/uL Basophils # (Auto) 0 0-0.2 10 ^3/uL Nucleated Red Blood Cells 0.6 % Sodium Level 139 136-145 mmol/L Potassium Level 4.6 3.5-5.1 mmol/L Chloride Level 97 L 98-107 mmol/L Carbon Dioxide Level 31 20-31 mmol/L Anion Gap 11 5-15 Blood Urea Nitrogen 27 #H 9-23 mg/dL Creatinine 1.08 0.700-1.30 mg/dL Glomerular Filtration Rate Calc 89 >90 mL/min BUN/Creatinine Ratio 25.0 H 10.0-20.0 Serum Glucose 120 H 74-106 mg/dL Calcium Level 9.0 8.7-10.4 mg/dL Vancomycin Level Trough 8.8 5-10 ug/mL Total Bilirubin 1.7 H 0.2-1.0 mg/dL Aspartate Amino Transferase (AST) 39 13-40 U/L Alanine Aminotransferase (ALT) 53 H 7-40 U/L Alkaline Phosphatase 115 46-116 U/L Total Protein 6.5 5.7-8.2 g/dL Albumin 3.6 3.2-4.8 g/dL Influenza Type A Antigen Negative Negative Influenza Type B Antigen Negative Negative SARS-CoV-2 Antigen (Rapid) Negative NEGATIVE Test 10/06/25 03:34 10/06/25 00:55 10/05/25 23:35 10/05/25 20:43 Range/Units Hemoglobin A1c 8.7 H <5.7 % A1C Troponin I High Sensitivity 33 </=54 ng/L Blood Gas Specimen Type Arterial Blood Gas Sample Site Right radial Blood Gas Patient Temperature 37.0 Arterial Blood Date Drawn [id number] Arterial Blood pH 7.416 7.350-7.450 Arterial Blood Partial Pressure CO2 46.0 35.0-48.0 mmHg Arterial Blood Partial Pressure O2 73.4 L 83.0-108.0 mmHg Arterial Blood HCO3 28.9 H 21.0-28.0 mmol/L Tyrell Test Yes Blood Gas Total Hemoglobin > 21.20 *H 13.5-17.5 g/dL Blood Gas Modality Room air FiO2 % 21.0 Blood Gas Critical Value Read Back Yes Blood Gas Notified Whom flako Barrera md Blood Gas Notified Time [id number] Blood Gas Notified By Urine Color Yellow Yellow Urine Clarity Clear Clear Urine pH 7.0 5.0-9.0 Urine Specific [place] 1.028 1.001-1.035 Urine Protein 2+ H Negative Urine Ketones Negative Negative Urine Blood Negative Negative /uL Urine Nitrite Negative Negative Urine Bilirubin Negative Negative Urine Urobilinogen 12 H Negative mg/dL Urine Leukocyte Esterase Negative Negative /uL Urine RBC 3 0 - 3 /hpf Urine Microscopic WBC 1 0-3 /HPF Urine Squamous Epithelial Cells None seen <5 /hpf Urine Bacteria None seen None Seen /hpf Urine Glucose Normal Normal mg/dL Urine Opiates Screen Neg NEGATIVE Urine Fentanyl Screen Neg NEGATIVE Urine Barbiturates Screen Neg NEGATIVE Urine Phencyclidine Screen Neg NEGATIVE Urine Amphetamines Screen Neg NEGATIVE Urine Benzodiazepines Screen Neg NEGATIVE Urine Cocaine Screen Neg NEGATIVE Urine Cannabinoids Screen Neg NEGATIVE D-Dimer, Quantitative 0.19 0.0-0.49 mg/L FEU Lactic Acid Level 1.1 0.4-2.0 mmol/L Magnesium Level 1.8 1.6-2.6 mg/dL B-Type Natriuretic Peptide 142.40 0-100 pg/mL Lipase 38 12-53 U/L Microbiology Date/Time Source Procedure Growth Status 10/06/25 17:28 Blood Blood Culture - Preliminary NO GROWTH AFTER 48 HOURS OF INCUBATION. Resulted GITA PERSAUD MD Oct 08, 2025 23:42
--- NOTE | 2025-10-09 11:23 | ECG ---
[facility] Test Date: 2025-10-06 Test Time: 09:00:33 Pat Name: DIANNA SANTOS Department: Room: 0271T B Gender: M Desk Operator: HTESTELLAJOLANTA : 1985 Requested By: VENICE NAYAK Order Number: [id number] Reading MD: Huber Ellington Measurements Intervals [place] Rate: 134 P: 0 DE: 0 QRS: 261 QRSD: 87 T: 55 QT: 328 QTc: 490 Interpretive Statements Atrial flutter with 2:1 AV block Inferior infarct, old Anterior infarct, old ST depr, consider ischemia, anterolateral lds Electronically Signed On 10-12-2025 10:34:15 PST by Huber Ellington Please click the below link to view image of tracing.
== END 2025-10-08 14:50 | disposition home or self-care (01) | DRG 291 ==
LOC: ER 20:13 → OVERFLOW 10-06 00:30 → TELE-WESTW 10-06 04:46
PROVIDERS: ADMIT Internal Medicine; ATTEND Internal Medicine
PROC: 5A2204Z Restoration of Cardiac Rhythm, Single (ICD-10-PCS; principal; 2025-10-07)
DX: I11.0 Hypertensive heart disease with heart failure (principal); I50.21 Acute systolic (congestive) heart failure; I48.92 Unspecified atrial flutter; Z79.01 Long term (current) use of anticoagulants; E11.9 Type 2 diabetes mellitus without complications; E66.01 Morbid (severe) obesity due to excess calories; Z68.42 Body mass index [BMI] 45.0-49.9, adult; I42.9 Cardiomyopathy, unspecified; F41.9 Anxiety disorder, unspecified; Z20.822 Contact with and (suspected) exposure to COVID-19; G47.30 Sleep apnea, unspecified; E78.5 Hyperlipidemia, unspecified; I48.91 Unspecified atrial fibrillation; J06.9 Acute upper respiratory infection, unspecified; Z79.84 Long term (current) use of oral hypoglycemic drugs; Z79.899 Other long term (current) drug therapy; Z82.49 Family history of ischemic heart disease and other diseases of the circulatory system; Z83.3 Family history of diabetes mellitus; Z87.891 Personal history of nicotine dependence
CPT/HCPCS: 36415; 36600; 71045; 74176; 80048; 80053; 80202; 80307; 81001; 82805; 82962; 83036; 83605; 83690; 83735; 83880; 84484; 85025; 85379; 87040; 87426; 87804; 92960; 93005; 93306; 94640; 96374; G0378; J1815; J2250